=== PATIENT | male | born 1935 | race Caucasian/White ===

== ENCOUNTER → 2018-10-09 | Outpatient (CLI) | payer MEDICARE ==
[2018-10-09 11:15] VITALS: BMI 28.8
== END ==
LOC: DBWHC3 08:53
PROVIDERS: ATTEND Internal Medicine Hematology & Oncology
DX: E46 Unspecified protein-calorie malnutrition (principal); D64.9 Anemia, unspecified; C15.5 Malignant neoplasm of lower third of esophagus; D47.2 Monoclonal gammopathy; N18.3 Chronic kidney disease, stage 3 (moderate)
CPT/HCPCS: 97802

== ENCOUNTER → 2018-10-28 | Outpatient (CLI) | payer MEDICARE ==
--- NOTE | 2018-10-28 15:46 | XR ---
EXAMINATION TYPE: XR chest 2V DATE OF EXAM: 10/28/2018 COMPARISON: 05/28/2014 HISTORY: Cough TECHNIQUE: Frontal and lateral views of the chest are obtained. FINDINGS: There is a moderate left pleural effusion that is developed in the interim. There is a sma ll right pleural effusion that is also new. Associated bibasilar airspace disease may represent compr essive atelectasis or underlying pneumonia. Mild pulmonary vascular congestion is seen. Cardia medias tinal silhouette is obscured however the visualized portions appear enlarged. Right-sided Mediport is present terminating in the cavoatrial junction. Post CABG changes are seen of the chest. There is di ffuse osseous demineralization and bridging anterior osteophytes suggesting diffuse hepatocellular hy perostosis. No sizable pneumothorax. IMPRESSION: New moderate left and small right pleural effusions with associated bibasilar airspace d isease and mild pulmonary vascular congestion.
== END | disposition home or self-care (01) ==
LOC: RADXRMAIN 15:11
PROVIDERS: ATTEND Physician Assistant
DX: J90 Pleural effusion, not elsewhere classified (principal); R09.89 Other specified symptoms and signs involving the circulatory and respiratory systems
CPT/HCPCS: 71046

== ENCOUNTER 2018-11-05 11:00 | Day surgery (SDC) | payer MEDICARE ==
--- NOTE | 2018-11-05 11:29 | US ---
EXAMINATION TYPE: US chest DATE OF EXAM: 11/05/2018 COMPARISON: CXR CLINICAL HISTORY: J90 PE. Left pleural effusion TECHNIQUE: Targeted ultrasound of the posterior lower left hemithorax EXAM MEASUREMENTS: Left Pleural Effusion pocket size: 11.9 cm Left skin surface to fluid distance: 3.5 cm Left side marked for possible thoracentesis outside the dept. Pulmonologists are able to review the images in the patient?s EMR. IMPRESSIONS: Pleural effusion
[2018-11-05 11:39] VITALS: BP 116/55; PULSE 67; RESP 16
[2018-11-05 11:42] VITALS: TEMP 97.8
--- NOTE | 2018-11-05 12:56 | XR ---
EXAMINATION TYPE: XR chest 1V portable DATE OF EXAM: 11/05/2018 COMPARISON: 11/02/2018 HISTORY: Postthoracentesis TECHNIQUE: Single frontal view of the chest is obtained. FINDINGS: Bilateral consolidation and pleural effusion again noted. There is a Mediport catheter pos tsurgical changes with no pneumothorax. Postoperative changes seen and there is arthropathy of the sh oulders severe changes on the left. IMPRESSION: No pneumothorax. Persistent bilateral consolidation and pleural effusion. Underlying anne marie ous congestion in the differential diagnosis.
[2018-11-05 17:30] LABS: Appearance,BF Clear; Color,BF Yellow; Nucleated Cells, Body Fluid 70 /uL; RBC, Body Fluid 160 /uL
--- NOTE | 2018-11-05 18:16 | OP ---
OPERATIVE REPORT LEFT-SIDED THORACENTESIS: PREOPERATIVE DIAGNOSIS: Left pleural effusion. POSTOPERATIVE DIAGNOSIS: Left pleural effusion. ANESTHESIA USED: Lidocaine 1%, 2 mL. PROCEDURE DESCRIPTION: The patient was placed in a sitting-upright position. The area below the left scapula was prepared in a sterile fashion and drapes were applied. The fluid was earlier localized by ultrasound, and markings were placed at the site of the 8th intercostal space and tip of the scapula. Again, the area was prepared in a sterile fashion. Area was anesthetized with 2 mL of 1% lidocaine. Then a 26-gauge needle was inserted at the same site, advanced into the pleural space until the fluid was localized. Then a small tiny incision was made. Then a standard thoracentesis catheter and needle were used. The needle was inserted at the same site and advanced into the pleural space until the fluid was obtained. The catheter was advanced out of the needle into the pleural space, and the needle was pulled out of the pleural space. Fluid was drained; roughly 1300 mL of slightly yellow fluid, light in color, all drained into a large bottle, and the fluid was sent for different diagnostic studies. No evidence of any immediate complications. Fluid results are pending. Chest x-ray ordered postoperatively is pending. Again, no evidence of any immediate complications noted. MMODL / IJN: [id number] /
[2018-11-05 19:16] LABS: Mononuclear WBC,Body Fluid 95 %; Polynuclear WBC,Body Fluid 3 %
[2018-11-05 23:42] LABS: Total Protein, Body Fluid 2020 mg/dL
[2018-11-06] LABS: Amylase, Fluid Source Thoracentesis
== END 2018-11-11 15:46 ==
LOC: PROCWHC3 11:00
PROVIDERS: ATTEND Internal Medicine
DX: J90 Pleural effusion, not elsewhere classified (principal); Z85.01 Personal history of malignant neoplasm of esophagus
CPT/HCPCS: 32554; 71045; 76604; 82150; 82570; 82945; 83615; 84157; 87070; 87102; 87116; 87205; 87206; 88108; 88305; 88341; 88342; 89050

== ENCOUNTER 2018-12-29 18:13 | Inpatient (IN) | payer MEDICARE ==
[2018-12-29] MEDS ORDERED: ACETAMINOPHEN TAB 500 MG TAB PO STA (19:01)
[2018-12-29] MEDS: SODIUM CHLORIDE 0.9% 500 ML 500 ML IV SCH ×2 (19:11→19:12)
--- NOTE | 2018-12-29 19:13 | ED ---
General Adult HPI - General Chief complaint: Recheck/Abnormal Lab/Rx Stated complaint: FEVER, ELEVATED HEART RATE, LOW 02 Time Seen by Provider: 12/29/18 18:56 Source: patient, family, RN notes reviewed Mode of arrival: wheelchair Limitations: no limitations - History of Present Illness Initial comments: Patient is a pleasant 83-year-old male presenting to the emergency Department with fever. Onset of symptoms was today. Patient does feel somewhat short of breath. Patient feels fatigued. Patient does have mild occasional cough. No abdominal pain. No dysuria. Patient has not urinated much today. Family did notice high heart rate and low oxygen level on monitoring at home today. Patient also has history of bilateral leg wounds which family states appear slightly worse and they do believe there was somewhat of an odor there today. Patient does have history of esophageal cancer and is not under treatment for that at this point. Patient does frequently become anemic secondary to this - Related Data Home Medications Medication Instructions Recorded Confirmed Metoprolol Tartrate 25 mg PO BID 05/20/14 12/29/18 Paricalcitol 2 mcg PO MO 05/20/14 12/29/18 Furosemide [Lasix] 40 mg PO DAILY 07/31/18 12/29/18 Iron Polysaccharide Complex 150 mg PO DAILY 07/31/18 12/29/18 [Ferrex 150] Lactobacillus Acidophilus 1 tab PO DAILY 07/31/18 12/29/18 [Acidophilus] Pravastatin Sodium [Pravachol] 20 mg PO HS 07/31/18 12/29/18 guaiFENesin [Mucinex] 600 mg PO BID 07/31/18 12/29/18 Cholecalciferol [Vitamin D3] 400 unit PO BID 12/29/18 12/29/18 Omeprazole 40 mg PO DAILY 12/29/18 12/29/18 Spironolactone [Aldactone] 25 mg PO DAILY 12/29/18 12/29/18 Allergies Allergy/AdvReac Type Severity Reaction Status Date / Time No Known Allergies Allergy Verified 12/29/18 19:28 Review of Systems ROS Statement: Those systems with pertinent positive or pertinent negative responses have been documented in the HPI. ROS Other: All systems not noted in ROS Statement are negative. Constitutional: Reports: fever, chills Eyes: Denies: eye pain ENT: Denies: ear pain Respiratory: Reports: dyspnea Cardiovascular: Denies: chest pain Endocrine: Reports: fatigue Gastrointestinal: Denies: abdominal pain Genitourinary: Denies: dysuria Musculoskeletal: Denies: back pain Skin: Reports: as per HPI Neurological: Denies: headache Past Medical History Past Medical History: Atrial Fibrillation, Cancer, Hypertension, Renal Disease Additional Past Medical History / Comment(s): Hx of diabetes. Esophogeal cancer History of Any Multi-Drug Resistant Organisms: None Reported Past Surgical History: Appendectomy, Coronary Bypass/CABG, Orthopedic Surgery Additional Past Surgical History / Comment(s): bilateral hip replacement and Left Knee replacement Past Anesthesia/Blood Transfusion Reactions: No Reported Reaction Past Psychological History: No Psychological Hx Reported Smoking Status: Former smoker Past Alcohol Use History: Rare Past Drug Use History: None Reported - Past Family History Mother Additional Family Medical History / Comment(s): Leukemia General Exam Limitations: no limitations General appearance: alert, in no apparent distress Head exam: Present: atraumatic Eye exam: Present: normal appearance, PERRL ENT exam: Present: normal oropharynx Neck exam: Present: normal inspection. Absent: meningismus Respiratory exam: Present: normal lung sounds bilaterally Cardiovascular Exam: Present: tachycardia GI/Abdominal exam: Present: soft. Absent: tenderness Extremities exam: Absent: tenderness, calf tenderness Neurological exam: Present: alert Psychiatric exam: Present: normal affect, normal mood Skin exam: Present: other (Bilateral lower extremity anterior chong lesions with trace erythema. No odor. No discharge. Lesions are approximately 1-2 cm with surrounding chronic discoloration.) Course Vital Signs 12/29/18 12/29/18 12/29/18 18:38 18:52 19:00 Temperature 101.3 F H Pulse Rate 114 H 113 H Respiratory 20 20 Rate Blood Pressure 91/51 101/51 O2 Sat by Pulse 94 L 91 L 95 Oximetry 12/29/18 12/29/18 12/29/18 19:01 19:10 19:47 Temperature 99.8 F H Pulse Rate 114 H 112 H Respiratory 20 32 H 18 Rate Blood Pressure 92/46 109/55 O2 Sat by Pulse 95 96 Oximetry EKG Findings - EKG Comments: EKG Findings:: Irregular narrow complex rhythm with a rate of 116. QRS 94. QT 334. QTC or 64. Normal axis. Normal QRS. No acute ST change. Medical Decision Making - Medical Decision Making Patient reevaluated and resting comfortably in bed. Patient has significantly improved from presentation. No respiratory distress. Patient and family are updated on results and plan. Dr. Wright has been paged for admission. There is suspicion for pneumonia. Clinically patient has presentation of pneumonia with questionable chest x-ray. Patient will be started with antibiotics. Patient does meet sepsis criteria diagnosed at 2039. Blood culture and lactic acid have been ordered. - Lab Data Result diagrams: 12/29/18 18:55 12/29/18 18:55 Lab Results 12/29/18 12/29/18 12/29/18 Range/Units 18:55 18:55 18:55 WBC 6.3 (3.8-10.6) k/uL RBC 2.64 L (4.30-5.90) m/uL Hgb 8.2 L (13.0-17.5) gm/dL Hct 25.8 L (39.0-53.0) % MCV 97.5 (80.0-100.0) fL MCH 31.2 (25.0-35.0) pg MCHC 32.0 (31.0-37.0) g/dL RDW 17.1 H (11.5-15.5) % Plt Count 161 (150-450) k/uL Neutrophils % 90 % Lymphocytes % 4 % Monocytes % 4 % Eosinophils % 1 % Basophils % 0 % Neutrophils # 5.7 (1.3-7.7) k/uL Lymphocytes # 0.3 L (1.0-4.8) k/uL Monocytes # 0.3 (0-1.0) k/uL Eosinophils # 0.0 (0-0.7) k/uL Basophils # 0.0 (0-0.2) k/uL Hypochromasia Slight Poikilocytosis Slight Anisocytosis Slight Macrocytosis Slight PT (9.0-12.0) sec INR (<1.2) APTT (22.0-30.0) sec Sodium 137 (137-145) mmol/L Potassium 4.7 (3.5-5.1) mmol/L Chloride 105 (98-107) mmol/L Carbon Dioxide 22 (22-30) mmol/L Anion Gap 10 mmol/L BUN 64 H (9-20) mg/dL Creatinine 1.65 H (0.66-1.25) mg/dL Est GFR (CKD-EPI)AfAm 43 (>60 ml/min/1.73 sqM) Est GFR (CKD-EPI)NonAf 37 (>60 ml/min/1.73 sqM) Glucose 169 H (74-99) mg/dL Plasma Lactic Acid Rory 1.4 (0.7-2.0) mmol/L Calcium 10.1 (8.4-10.2) mg/dL Total Bilirubin 0.6 (0.2-1.3) mg/dL AST 23 (17-59) U/L ALT 13 L (21-72) U/L Alkaline Phosphatase 135 H (38-126) U/L Total Protein 6.6 (6.3-8.2) g/dL Albumin 3.3 L (3.5-5.0) g/dL Urine Color Urine Appearance (Clear) Urine pH (5.0-8.0) Ur Specific Napoleon (1.001-1.035) Urine Protein (Negative) Urine Glucose (UA) (Negative) Urine Ketones (Negative) Urine Blood (Negative) Urine Nitrite (Negative) Urine Bilirubin (Negative) Urine Urobilinogen (<2.0) mg/dL Ur Leukocyte Esterase (Negative) Urine RBC (0-5) /hpf Urine WBC (0-5) /hpf Hyaline Casts (0-2) /lpf Urine Mucus (None) /hpf 12/29/18 12/29/18 Range/Units 18:55 19:40 WBC (3.8-10.6) k/uL RBC (4.30-5.90) m/uL Hgb (13.0-17.5) gm/dL Hct (39.0-53.0) % MCV (80.0-100.0) fL MCH (25.0-35.0) pg MCHC (31.0-37.0) g/dL RDW (11.5-15.5) % Plt Count (150-450) k/uL Neutrophils % % Lymphocytes % % Monocytes % % Eosinophils % % Basophils % % Neutrophils # (1.3-7.7) k/uL Lymphocytes # (1.0-4.8) k/uL Monocytes # (0-1.0) k/uL Eosinophils # (0-0.7) k/uL Basophils # (0-0.2) k/uL Hypochromasia Poikilocytosis Anisocytosis Macrocytosis PT 11.0 (9.0-12.0) sec INR 1.0 (<1.2) APTT 27.1 (22.0-30.0) sec Sodium (137-145) mmol/L Potassium (3.5-5.1) mmol/L Chloride (98-107) mmol/L Carbon Dioxide (22-30) mmol/L Anion Gap mmol/L BUN (9-20) mg/dL Creatinine (0.66-1.25) mg/dL Est GFR (CKD-EPI)AfAm (>60 ml/min/1.73 sqM) Est GFR (CKD-EPI)NonAf (>60 ml/min/1.73 sqM) Glucose (74-99) mg/dL Plasma Lactic Acid Rory (0.7-2.0) mmol/L Calcium (8.4-10.2) mg/dL Total Bilirubin (0.2-1.3) mg/dL AST (17-59) U/L ALT (21-72) U/L Alkaline Phosphatase (38-126) U/L Total Protein (6.3-8.2) g/dL Albumin (3.5-5.0) g/dL Urine Color Yellow Urine Appearance Clear (Clear) Urine pH 5.0 (5.0-8.0) Ur Specific Napoleon 1.011 (1.001-1.035) Urine Protein Negative (Negative) Urine Glucose (UA) Negative (Negative) Urine Ketones Negative (Negative) Urine Blood Trace H (Negative) Urine Nitrite Negative (Negative) Urine Bilirubin Negative (Negative) Urine Urobilinogen <2.0 (<2.0) mg/dL Ur Leukocyte Esterase Negative (Negative) Urine RBC 2 (0-5) /hpf Urine WBC 1 (0-5) /hpf Hyaline Casts 1 (0-2) /lpf Urine Mucus Rare H (None) /hpf - Radiology Data Radiology results: image reviewed (Patient has bilateral parenchymal abnormalities, greater on the left. There is some concern for atelectasis or pneumonia however is unchanged from previous.) Critical Care Time Critical Care Time: Yes Total Critical Care Time: 32 Disposition Clinical Impression: Pneumonia, Sepsis Disposition: ADMITTED IP TO THIS [facility] Condition: Serious Is patient prescribed a controlled substance at d/c from ED?: No Referrals: Alex Wright MD [Primary Care Provider] - 1-2 days Time of Disposition: 20:45
[2018-12-29 19:46] LABS: Anisocytosis Slight; Basophils % (A) 0 %; Eosinophils % (A) 1 %; HCT 25.8 % (39.0-53.0); HGB 8.2 gm/dL (13.0-17.5); Hypochromasia Slight; Lymphocytes # (A) 0.3 k/uL (1.0-4.8); Lymphocytes % (A) 4 %; MCH 31.2 pg (25.0-35.0); MCV 97.5 fL (80.0-100.0); Macrocytosis Slight; Mean Platelet Volume 7.2; Monocytes # (A) 0.3 k/uL (0-1.0); Monocytes % (A) 4 %; Neutrophils # (A) 5.7 k/uL (1.3-7.7); Neutrophils % (A) 90 %; Platelet Count 161 k/uL (150-450); Poikilocytosis Slight; RBC 2.64 m/uL (4.30-5.90); RDW 17.1 % (11.5-15.5); WBC 6.3 k/uL (3.8-10.6)
--- NOTE | 2018-12-29 19:51 | XR ---
EXAMINATION: XR chest 2V DATE AND TIME: 12/29/2018 7:24 PM CLINICAL INDICATION: PHH; Fever TECHNIQUE: Departmental protocol COMPARISON: 11/05/2018 FINDINGS: Right IJ portacatheter tip superimposed over the SVC. Sutures and mediastinal clips noted. Moderately enlarged cardiac silhouette redemonstrated. Previously seen prominent bilateral pleural effusions, much greater on the left, are redemonstrated. Also redemonstrated is airlessness throughout the left lower lobe and most of the lingula, as well as most of the right lower lobe. Findings are consistent with prominent volume of atelectasis and/or pn eumonia. No abnormal gas collections. IMPRESSION: Stable marked bilateral pleural parenchymal abnormalities, greater on the left. No new pr ocess.
[2018-12-29 20:00] LABS: Albumin 3.3 g/dL (3.5-5.0); Calcium 10.1 mg/dL (8.4-10.2); Potassium 4.7 mmol/L (3.5-5.1); Total Bilirubin 0.6 mg/dL (0.2-1.3); Total Protein 6.6 g/dL (6.3-8.2)
[2018-12-29 20:02] LABS: Partial Thromboplastin Time 27.1 sec (22.0-30.0)
[2018-12-29 20:26] LABS: Appearance,Urine Clear (Clear); Bilirubin,Urine Negative (Negative); Blood,Urine Trace (Negative); Color,Urine Yellow; Glucose,Urine (UA) Negative (Negative); Hyaline Casts,Urine 1 /lpf (0-2); Ketones,Urine Negative (Negative); Leukocyte Esterase,Urine Negative (Negative); Mucus,Urine Rare /hpf; Nitrite,Urine Negative (Negative); Protein,Urine Negative (Negative); RBC,Urine 2 /hpf (0-5); Specific Gravity,Urine 1.011 (1.001-1.035); Urobilinogen,Urine <2.0 mg/dL (<2.0); WBC,Urine 1 /hpf (0-5)
[2018-12-29] MEDS ORDERED: SODIUM CHLORIDE 0.9% 1,000 ML IV STA (20:41)
[2018-12-29] MEDS ORDERED: SODIUM CHLORIDE 0.9% 250 ML IV STA (20:41)
[2018-12-29] MEDS ORDERED: PNEUMONIA PROTOCOL UTILIZED 1 EACH MISC PO PRN (20:46)
[2018-12-29] MEDS ORDERED: LEVOFLOXACIN 750MG-D5W PMX 750 MG in DEXTROSE/WATER 1 150ML.BAG IVPB STA (20:46)
[2018-12-29] MEDS ORDERED: IPRATROPIUM-ALBUTEROL 3 ML NEB INHALATION PRN (20:46)
[2018-12-29] MEDS ORDERED: PIPERACILLIN-TAZOBACTAM 3.375 GM in SODIUM CHLORIDE 0.9% 100 ML IVPB STA (20:46)
[2018-12-29] MEDS: SODIUM CHLORIDE 0.9% 1,000 ML IV SCH (22:32)
[2018-12-30 07:01] LABS: Glucose,Whole Blood 103 mg/dL (75-99)
[2018-12-30] MEDS: SODIUM CHLORIDE 0.9% 1,000 ML IV SCH ×2 (07:53→17:05)
--- NOTE | 2018-12-30 08:02 | XR ---
EXAMINATION TYPE: XR chest 2V DATE OF EXAM: 12/30/2018 COMPARISON: 12/29/2018 HISTORY: Follow-up for pneumonia TECHNIQUE: Frontal and lateral views of the chest are obtained. FINDINGS: There is improved aeration of the lung base however there is a residual masslike density a t the right lung base measuring up to 4.3 cm. Interstitial edema is mild throughout and a moderate le ft pleural effusion remains with left basilar airspace disease. Right-sided Mediport is noted. Diffus e osseous demineralization is present. Post CABG changes the chest are seen with obscuration of the l eft cardiac border due to the pleural effusion. Advanced arthropathy of the left shoulder. IMPRESSION: 1. Improved aeration of the right lung base with residual 4.3 cm masslike density at the right lung b ase. If this patient has no known pulmonary mass CT would be recommended for further evaluation. 2. Persistent moderate left pleural effusion, left basilar airspace disease that likely represents at electasis, and mild pulmonary vascular all unchanged from the prior.
[2018-12-30] MEDS: IPRATROPIUM-ALBUTEROL 3 ML NEB INHALATION SCH ×4 (08:14→19:51)
[2018-12-30] MEDS: PIPERACILLIN-TAZOBACTAM 3.375 GM in SODIUM CHLORIDE 0.9% 100 ML IVPB SCH ×2 (08:40→17:04)
[2018-12-30] MEDS: METOPROLOL TARTRATE 25 MG TAB PO SCH ×2 (08:40→20:27)
[2018-12-30] MEDS: FUROSEMIDE 40 MG TAB PO SCH ×2 (08:40→17:04)
[2018-12-30] MEDS: PANTOPRAZOLE 40 MG TABLET PO SCH (08:40)
[2018-12-30] MEDS: LACTOBACILLUS ACIDOPH & BULGAR 1 EACH PACKET PO SCH (08:40)
[2018-12-30 11:19] LABS: Glucose,Whole Blood 160 mg/dL (75-99)
--- NOTE | 2018-12-30 11:31 | P.HPIM ---
History of Present Illness 83-year-old male presented the emergency room with complaints of fever and occasional cough tachycardic and hypoxia. 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 Patient does have a history of intermittent atrial fibrillation renal disease GFR 37, coronary disease with history of CABG and esophageal cancer for whom he sees Dr. Dennison Review of Systems Constitutional: Reports fatigue, Reports fever, Reports weakness Respiratory: Reports cough Integumentary: Reports wounds Past Medical History Past Medical History: Atrial Fibrillation, Cancer, Hypertension, Renal Disease Additional Past Medical History / Comment(s): Hx of diabetes. Esophogeal cancer History of Any Multi-Drug Resistant Organisms: None Reported Past Surgical History: Appendectomy, Coronary Bypass/CABG, Orthopedic Surgery Additional Past Surgical History / Comment(s): bilateral hip replacement and Left Knee replacement Past Anesthesia/Blood Transfusion Reactions: No Reported Reaction Past Psychological History: No Psychological Hx Reported Smoking Status: Former smoker Past Alcohol Use History: Rare Past Drug Use History: None Reported - Past Family History Mother Additional Family Medical History / Comment(s): Leukemia Medications and Allergies Home Medications Medication Instructions Recorded Confirmed Type Metoprolol Tartrate 25 mg PO BID 05/20/14 12/29/18 History Paricalcitol 2 mcg PO MO 05/20/14 12/29/18 History Furosemide [Lasix] 40 mg PO DAILY 07/31/18 12/29/18 History Iron Polysaccharide Complex 150 mg PO DAILY 07/31/18 12/29/18 History [Ferrex 150] Lactobacillus Acidophilus 1 tab PO DAILY 07/31/18 12/29/18 History [Acidophilus] Pravastatin Sodium [Pravachol] 20 mg PO HS 07/31/18 12/29/18 History guaiFENesin [Mucinex] 600 mg PO BID 07/31/18 12/29/18 History Cholecalciferol [Vitamin D3] 400 unit PO BID 12/29/18 12/29/18 History Omeprazole 40 mg PO DAILY 12/29/18 12/29/18 History Spironolactone [Aldactone] 25 mg PO DAILY 12/29/18 12/29/18 History Allergies Allergy/AdvReac Type Severity Reaction Status Date / Time No Known Allergies Allergy Verified 12/29/18 19:28 Physical Exam Vitals: Vital Signs Temp Pulse Pulse Resp BP BP Pulse Ox 12/30/18 08:28 112 H 12/30/18 08:15 108 H 12/30/18 07:53 18 12/30/18 04:18 97.5 F L 95 18 104/62 100 12/30/18 00:00 18 12/29/18 21:20 105 H 18 94/44 97 12/29/18 21:16 99.1 F 116 H 20 88/47 96 12/29/18 19:47 99.8 F H 112 H 18 109/55 96 12/29/18 19:10 114 H 32 H 92/46 95 12/29/18 19:01 20 12/29/18 19:00 113 H 20 101/51 95 12/29/18 18:52 91 L 12/29/18 18:38 101.3 F H 114 H 20 91/51 94 L Intake and Output 12/29/18 12/30/18 12/30/18 22:59 06:59 14:59 Intake Total 2479 1040 Output Total 280 560 100 Balance 2199 480 -100 Intake: Intake, IV Titration 1998 800 Amount Levofloxacin 750Mg-D5w 150 Pmx 750 mg In Dextrose/ Water 1 150ml.bag @ 100 mls/hr IVPB Q48H [facility] Rx#: [id number] Piperacillin-Tazobactam 3 100 .375 gm In Sodium Chloride 0.9% 100 ml @ 25 mls/hr IVPB Q8HR [facility] Rx# :[id number] Sodium Chloride 0.9% 1, 800 000 ml @ 100 mls/hr IV . Q10H [facility] Rx#:[id number] Sodium Chloride 0.9% 1, 999 000 ml @ 999 mls/hr IV . Q1H1M [facility] Rx#:[id number] Sodium Chloride 0.9% 250 250 ml @ 999 mls/hr IV .Q16M [facility] Rx#:[id number] Sodium Chloride 0.9% 500 500 ml 500 ml @ 1000 mls/hr IV Q35M [facility] Rx#:[id number] Oral 480 240 Output: Urine 280 560 100 Other: Voiding Method Toilet Urinal Urinal Weight 73.936 kg - Constitutional General appearance: mild distress - EENT Eyes: PERRLA Ears: bilateral: normal - Neck Neck: normal ROM - Respiratory Respiratory: bilateral: diminished - Cardiovascular Rhythm: regular Abnormal Heart Sounds: systolic murmur - Gastrointestinal General gastrointestinal: normal bowel sounds, soft - Integumentary Wounds to anterior lower extremity bilateral Integumentary: cellulitis - Neurologic Neurologic: CNII-XII intact - Musculoskeletal Musculoskeletal: generalized weakness - Psychiatric Psychiatric: A&O x's 3, appropriate affect, intact judgment & insight Results CBC & Chem 7: 12/29/18 18:55 12/29/18 18:55 Labs: Abnormal Lab Results - Last 24 Hours (Table) 12/29/18 12/29/18 12/29/18 Range/Units 18:55 18:55 19:40 RBC 2.64 L (4.30-5.90) m/uL Hgb 8.2 L (13.0-17.5) gm/dL Hct 25.8 L (39.0-53.0) % RDW 17.1 H (11.5-15.5) % Lymphocytes # 0.3 L (1.0-4.8) k/uL BUN 64 H (9-20) mg/dL Creatinine 1.65 H (0.66-1.25) mg/dL Glucose 169 H (74-99) mg/dL POC Glucose (mg/dL) (75-99) mg/dL ALT 13 L (21-72) U/L Alkaline Phosphatase 135 H (38-126) U/L Albumin 3.3 L (3.5-5.0) g/dL Urine Blood Trace H (Negative) Urine Mucus Rare H (None) /hpf 12/30/18 12/30/18 Range/Units 06:57 11:18 RBC (4.30-5.90) m/uL Hgb (13.0-17.5) gm/dL Hct (39.0-53.0) % RDW (11.5-15.5) % Lymphocytes # (1.0-4.8) k/uL BUN (9-20) mg/dL Creatinine (0.66-1.25) mg/dL Glucose (74-99) mg/dL POC Glucose (mg/dL) 103 H 160 H (75-99) mg/dL ALT (21-72) U/L Alkaline Phosphatase (38-126) U/L Albumin (3.5-5.0) g/dL Urine Blood (Negative) Urine Mucus (None) /hpf Microbiology - Last 24 Hours (Table) 08/06/19 19:40 Urine Culture - Preliminary Urine,Voided Chest x-ray: report reviewed Thrombosis Risk Factor Assmnt - Choose All That Apply Other Risk Factors: Yes Each Risk Factor Represents 2 Points: Malignancy Each Risk Factor Represents 3 Points: Age 75 years or older Other congenital or acquired thrombophilia - If yes, enter type in comment: No Thrombosis Risk Factor Assessment Total Risk Factor Score: 5 Thrombosis Risk Factor Assessment Level: High Risk Assessment and Plan Plan: Assessment Pneumonia with sepsis Cellulitis lower extremities Anemia chronic disease Intermittent atrial fibrillation Esophageal cancer Renal disease GFR 37 Coronary disease with history of CABG Plan Consultation with oncology and pulmonology Patient on Levaquin and Zosyn Patient is no code
--- NOTE | 2018-12-30 11:56 | CONS ---
CONSULTATION This is an 83-year-old male with a known history of atrial fibrillation, esophageal cancer, hypertension, diabetes, previous bypass grafting, CAD, and multiple other medical problems, who presents to the emergency department because of a high temperature and fever. The patient states that he was feeling febrile and that is why he came into the emergency room to be evaluated. He states when he checked his temperature at home, it was more than 101 degrees. In addition to fever, the patient was feeling very weak and fatigued. In addition, the patient complains of mild shortness of breath and a minimal cough which is mostly nonproductive. He denied any chest pain or chest discomfort. No abdominal pain. No nausea, vomiting or diarrhea. No genitourinary complaints. The patient was admitted with a diagnosis of fever and possible pneumonia. Chest x-ray shows evidence of a possible mass in the right lower lobe. In addition, there is infiltrate, atelectasis or effusion at the left lung base. The patient did have a previous thoracentesis by my partner, Dr. Girard back in October of this year. Cytology was negative. He apparently is not undergoing cancer treatment at this time. The patient is getting a breathing treatment when I see him today. He denies any respiratory issues including shortness of breath. Again, he mentioned to me that the only reason he came to the hospital was because of fever. HOME MEDICATIONS: Include metoprolol, calcitriol, Lasix, Ferrex, lactobacillus acidophilus, pravastatin, Mucinex, vitamin D3, omeprazole, and Aldactone. ALLERGIES: Denied. MEDICAL HISTORY: Includes atrial fibrillation, esophageal cancer, hypertension, chronic kidney disease, diabetes, CAD, previous bypass grafting, among other things. SURGICAL HISTORY: Includes appendectomy, bypass grafting, bilateral hip replacement and left knee replacement. SOCIAL HISTORY: Positive for many years of heavy tobacco use. Does not smoke currently. Alcohol use rarely. No illicit drug use is noted. FAMILY HISTORY: Positive for mother with leukemia. All the other family members are okay. REVIEW OF SYSTEMS: CONSTITUTIONAL: Fever and weakness. NEUROLOGIC: Negative. HEENT: Negative. CARDIOVASCULAR: Negative. PULMONARY: Mild shortness of breath and mild nonproductive cough. GI: Negative. : Negative. RHEUMATOLOGIC: Negative. IMMUNOLOGIC: Negative. ENDOCRINOLOGIC: Negative. DERMATOLOGIC: Negative. Vital signs are reviewed. Temperature is 97.5, heart rate is 108, respiratory rate 18, blood pressure 104/62 mean 76, 2 L saturation is 100%. He appears in no acute distress. He is wearing oxygen. He was getting a breathing treatment when I saw him. There was no overt signs or symptoms of respiratory compromise. The patient did not have any audible wheezing, use of accessory muscles or conversational dyspnea. HEENT: Examination is grossly unremarkable. Nasal O2 noted. Mucous membranes are moist. NECK: Supple. Full range of motion. No adenopathy. Neck veins are flat. CARDIOVASCULAR: Examination reveals mild tachycardia. Heart rate about 100. S1, S2 normal. No S3, S4, or murmur. LUNGS: Reveal diminished breath sounds at the left base. There are some diffuse bilateral rhonchi. No wheezes. Mild crackles are noted. ABDOMEN: Soft. Bowel sounds are heard. EXTREMITIES: Intact. No cyanosis, clubbing, or edema. SKIN: Without rash. NEUROLOGIC: Examination is brief but nonfocal. White count 6.3, hemoglobin 8.2, hematocrit 25.8, platelet count 161,000. PT, INR, PTT all normal. Sodium, potassium, chloride, CO2 all normal. Anion gap is normal. BUN and creatinine were 64 and 1 65, suggesting prerenal azotemia. Albumin 3.3. Urine is essentially negative. Chest x-ray shows infiltrate, atelectasis or effusion at the left lung base. In addition, there is a mass at the right lung base. The upper lung flaherty seemed relatively clear. Microbiologic studies are thus far negative. Current medications are reviewed. He is on Tylenol, Lasix, DuoNeb, iron supplementation, lactobacillus, Levaquin, metoprolol, piperacillin/tazobactam, pravastatin and a 0.9 IV at 100 mL an hour. ASSESSMENT: 1. Rule out pneumonia, left lower lobe. 2. History of esophageal cancer. 3. History of hypertension. 4. History of hyperlipidemia. 5. History of gastroesophageal reflux disease. 6. History of chronic kidney disease. 7. Previous bypass grafting. 8. History of appendectomy. 9. History of atrial fibrillation. 10.History of previous heavy tobacco use. PLAN: The patient's medications are reviewed. Additional recommendations and suggestions are forthcoming. He likely has underlying COPD from previous heavy tobacco use. We will make sure he is on appropriate regimen. He also needs to be on antibiotics and oxygen therapy. Prognosis is guarded. Additional recommendations and suggestions are forthcoming. The right lower lobe lung mass to be evaluated and dealt with as an outpatient. MMODL / IJN: [id number] /
[2018-12-30] MEDS: IRON POLYSACCHARIDES COMPLEX 150 MG CAP PO SCH (12:17)
--- NOTE | 2018-12-30 15:15 | P.CONS ---
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 He had a follow up PET scan on 04/24/2018 which revealed uptake at distal esophagus,stable midly prominent mediastinal nodes and small bilateral pleural effusion. He also had a repeat CT scan of chest/abdomen/pelvis on 06/18/2018,stable finding compared to prior PET scan. He had a repeat EGD on 06/10/2018 biopsy revealed high grade dysplasia and intestinal metaplasia,malignancy could not be excluded. In regard to his anemia,he has been requiring intermittent blood transfusion,it has become almost every 3 weeks since May/2018 despite procrit supplement. He moved to [place] to stay with his daughter on 07/21/2018. In regard to his esophageal cancer,he may have residual local disease,it was felt that he is not a candidate for surgery. In regard to his anemia,he is still requiring blood transfusion every 2-4 weeks. Most recent transfusion was around 12/01/18, for hemoglobin of 6.7. Since then hemoglobin has been greater than 8 He had a left-sided pleural effusion drained in 11/11, with cytology negative He was supposed to have a repeat endoscopy within the last week or so, but states that he he had to cancel, as he was having increased cough whenever he would lay flat The patient came into the hospital, with complains of progressive shortness of breath over the past few days, as well as subjective fever. He also complained of a nonproductive cough, worsened by laying flat. In the ER he had a temperature of 101+. Chest x-ray revealed possibility of left-sided pneumonia. He was therefore admitted for further management, and consult placed He denied any obvious bleeding. He reports difficulty in swallowing only with pills, intermittently. He denied any overt choking episodes. His last EMRE injection was on 12/21/18 Review of Systems Constitutional: Reports fatigue, Reports weakness, Reports weight loss Eyes: denies blurred vision, denies pain Ears: deny: decreased hearing, ear discharge, earache, tinnitus Ears, nose, mouth and throat: Reports dysphagia (just with pills), Denies hea dache, Denies sore throat Cardiovascular: Reports dyspnea on exertion Respiratory: Reports cough, Reports dyspnea Gastrointestinal: Denies abdominal pain, Denies diarrhea, Denies nausea, Denies vomiting Genitourinary: Reports as per HPI Musculoskeletal: Reports muscle weakness Integumentary: Denies pruritus, Denies rash Neurological: Reports weakness Psychiatric: Denies anxiety, Denies depression Endocrine: Reports fatigue, Reports weight change Hematologic/Lymphatic: Reports as per HPI Past Medical History Past Medical History: Atrial Fibrillation, Cancer, Hypertension, Renal Disease Additional Past Medical History / Comment(s): Hx of diabetes. Esophogeal cancer History of Any Multi-Drug Resistant Organisms: None Reported Past Surgical History: Appendectomy, Coronary Bypass/CABG, Orthopedic Surgery Additional Past Surgical History / Comment(s): bilateral hip replacement and Left Knee replacement Past Anesthesia/Blood Transfusion Reactions: No Reported Reaction Past Psychological History: No Psychological Hx Reported Smoking Status: Former smoker Past Alcohol Use History: Rare Past Drug Use History: None Reported - Past Family History Mother Additional Family Medical History / Comment(s): Leukemia Medications and Allergies Home Medications Medication Instructions Recorded Confirmed Type Metoprolol Tartrate 25 mg PO BID 05/20/14 12/29/18 History Paricalcitol 2 mcg PO MO 05/20/14 12/29/18 History Furosemide [Lasix] 40 mg PO DAILY 07/31/18 12/29/18 History Iron Polysaccharide Complex 150 mg PO DAILY 07/31/18 12/29/18 History [Ferrex 150] Lactobacillus Acidophilus 1 tab PO DAILY 07/31/18 12/29/18 History [Acidophilus] Pravastatin Sodium [Pravachol] 20 mg PO HS 07/31/18 12/29/18 History guaiFENesin [Mucinex] 600 mg PO BID 07/31/18 12/29/18 History Cholecalciferol [Vitamin D3] 400 unit PO BID 12/29/18 12/29/18 History Omeprazole 40 mg PO DAILY 12/29/18 12/29/18 History Spironolactone [Aldactone] 25 mg PO DAILY 12/29/18 12/29/18 History Allergies Allergy/AdvReac Type Severity Reaction Status Date / Time No Known Allergies Allergy Verified 12/29/18 19:28 Physical Exam Vitals: Vital Signs Temp Pulse Pulse Resp BP BP Pulse Ox 12/30/18 11:59 97.9 F 82 17 106/64 100 12/30/18 08:28 112 H 12/30/18 08:15 108 H 12/30/18 07:53 18 12/30/18 04:18 97.5 F L 95 18 104/62 100 12/30/18 00:00 18 12/29/18 21:20 105 H 18 94/44 97 12/29/18 21:16 99.1 F 116 H 20 88/47 96 12/29/18 19:47 99.8 F H 112 H 18 109/55 96 12/29/18 19:10 114 H 32 H 92/46 95 12/29/18 19:01 20 12/29/18 19:00 113 H 20 101/51 95 12/29/18 18:52 91 L 12/29/18 18:38 101.3 F H 114 H 20 91/51 94 L Intake and Output 12/29/18 12/30/18 12/30/18 22:59 06:59 14:59 Intake Total 2479 1040 Output Total 280 560 300 Balance 2199 480 -300 Intake: Intake, IV Titration 1998 Amount Levofloxacin 750Mg-D5w 150 Pmx 750 mg In Dextrose/ Water 1 150ml.bag @ 100 mls/hr IVPB Q48H [facility] Rx#: [id number] Piperacillin-Tazobactam 3 100 .375 gm In Sodium Chloride 0.9% 100 ml @ 25 mls/hr IVPB Q8HR [facility] Rx# :[id number] Sodium Chloride 0.9% 1, 800 000 ml @ 100 mls/hr IV . Q10H [facility] Rx#:[id number] Sodium Chloride 0.9% 1, 999 000 ml @ 999 mls/hr IV . Q1H1M [facility] Rx#:[id number] Sodium Chloride 0.9% 250 250 ml @ 999 mls/hr IV .Q16M [facility] Rx#:[id number] Sodium Chloride 0.9% 500 500 ml 500 ml @ 1000 mls/hr IV Q35M [facility] Rx#:[id number] Oral 480 240 Output: Urine 280 560 300 Other: Voiding Method Toilet Urinal Urinal Weight 73.936 kg - Constitutional General appearance: no acute distress - EENT Eyes: EOMI, PERRLA ENT: hearing grossly normal, normal oropharynx - Neck Neck: no lymphadenopathy Thyroid: bilateral: normal size - Respiratory Respiratory: left: diminished - Cardiovascular Rhythm: regular Heart sounds: normal: S1, S2 - Gastrointestinal General gastrointestinal: normal bowel sounds, soft - Integumentary Integumentary: normal - Neurologic Neurologic: CNII-XII intact - Musculoskeletal Musculoskeletal: generalized weakness, strength equal bilaterally - Psychiatric Psychiatric: A&O x's 3, appropriate affect Results CBC & Chem 7: 12/29/18 18:55 12/29/18 18:55 Labs: Abnormal Lab Results - Last 24 Hours (Table) 12/29/18 12/29/18 12/29/18 Range/Units 18:55 18:55 19:40 RBC 2.64 L (4.30-5.90) m/uL Hgb 8.2 L (13.0-17.5) gm/dL Hct 25.8 L (39.0-53.0) % RDW 17.1 H (11.5-15.5) % Lymphocytes # 0.3 L (1.0-4.8) k/uL BUN 64 H (9-20) mg/dL Creatinine 1.65 H (0.66-1.25) mg/dL Glucose 169 H (74-99) mg/dL POC Glucose (mg/dL) (75-99) mg/dL ALT 13 L (21-72) U/L Alkaline Phosphatase 135 H (38-126) U/L Albumin 3.3 L (3.5-5.0) g/dL Urine Blood Trace H (Negative) Urine Mucus Rare H (None) /hpf 12/30/18 12/30/18 Range/Units 06:57 11:18 RBC (4.30-5.90) m/uL Hgb (13.0-17.5) gm/dL Hct (39.0-53.0) % RDW (11.5-15.5) % Lymphocytes # (1.0-4.8) k/uL BUN (9-20) mg/dL Creatinine (0.66-1.25) mg/dL Glucose (74-99) mg/dL POC Glucose (mg/dL) 103 H 160 H (75-99) mg/dL ALT (21-72) U/L Alkaline Phosphatase (38-126) U/L Albumin (3.5-5.0) g/dL Urine Blood (Negative) Urine Mucus (None) /hpf Microbiology - Last 24 Hours (Table) 12/29/18 19:40 Urine Culture - Preliminary Urine,Voided Comments: Pathology report reviewed Chest x-ray: report reviewed Assessment and Plan (1) Pneumonia Narrative/Plan: The patient is presenting with increased shortness of breath as the main complaint. Since his drainage of pleural effusion in 11/11, serial chest x-rays have shown bibasilar airspace disease. Patient has improve slowly. Current x- rays show residual consolidation in the right lung base, as well as small effusion in the left lung. On examination in the left lung bases decrease. With the above picture, and his symptoms, a new process in the lung bases is certainly a possibility. There may also be an element of COPD exacerbation. Defer to the admitting service and other consultants for management Current Visit: Yes Status: Acute Code(s): J18.9 - PNEUMONIA, UNSPECIFIED ORGANISM SNOMED Code(s): 046945657 (2) Anemia Narrative/Plan: The patient is chronic anemia, along with mild pancytopenia. Diagnostic and therapeutic circumstances as described. 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 The patient is currently on treatment with EMRE, and supportive transfusions. He is bases EMRE does this week. He is following patient for a few days, we can potentially get the dose here. Continue to monitor hemoglobin and transfuse for less than 7. No evidence of any active bleeding Current Visit: Yes Status: Acute Code(s): D64.9 - ANEMIA, UNSPECIFIED SNOMED Code(s): 364606085 (3) Esophageal cancer Narrative/Plan: Diagnostic and therapeutic circumstances as described. The patient is not felt to be a candidate for esophageal resection. Last EGD and biopsy did not show any invasive malignancy. However local recurrence cannot be ruled out. The patient was supposed to have a repeat EGD last month but was unable to do so. At this time he has no new symptoms. His EGD will need to be scheduled once he is more stable. Therefore there is no definite evidence of metastatic disease. Cytology of the pleural effusion was negative, and so far there does not appear to have been significant recurrence. He does have bibasilar airspace disease, with the consolidation on the right side mentioned as masslike. However this appears to be actually improving compared to 11/11. Additional imaging studies will be done inpatient, only if clinically indicated. Otherwise he will resume follow-up as an outpatient. Current Visit: Yes Status: Acute Code(s): C15.9 - MALIGNANT NEOPLASM OF ESOPHAGUS, UNSPECIFIED SNOMED Code(s): 386555533 Plan: Defer to the admitting service and other consultants for management of his other medical problems
[2018-12-30 17:14] LABS: Glucose,Whole Blood 139 mg/dL (75-99)
[2018-12-30] MEDS: SYMBICORT 160-4.5 MCG INHALER INHALATION SCH (19:51)
[2018-12-30 20:27] LABS: Glucose,Whole Blood 159 mg/dL (75-99)
[2018-12-30] MEDS ORDERED: PRAVASTATIN SODIUM 20 MG TAB PO SCH (21:00)
[2018-12-31] MEDS: PIPERACILLIN-TAZOBACTAM 3.375 GM in SODIUM CHLORIDE 0.9% 100 ML IVPB SCH ×2 (01:15→10:32)
[2018-12-31 06:52] LABS: Glucose,Whole Blood 118 mg/dL (75-99)
[2018-12-31] MEDS: PANTOPRAZOLE 40 MG TABLET PO SCH (08:01)
[2018-12-31] MEDS: LACTOBACILLUS ACIDOPH & BULGAR 1 EACH PACKET PO SCH (08:02)
[2018-12-31] MEDS: METOPROLOL TARTRATE 25 MG TAB PO SCH (08:02)
[2018-12-31] MEDS: FUROSEMIDE 40 MG TAB PO SCH (08:02)
[2018-12-31] MEDS: SYMBICORT 160-4.5 MCG INHALER INHALATION SCH (08:19)
[2018-12-31] MEDS: IPRATROPIUM-ALBUTEROL 3 ML NEB INHALATION SCH ×2 (08:19→11:43)
[2018-12-31] MEDS ORDERED: LEVOFLOXACIN 750MG-D5W PMX 750 MG in DEXTROSE/WATER 1 150ML.BAG IVPB SCH (09:00)
--- NOTE | 2018-12-31 10:18 | PN ---
PROGRESS NOTE DATE OF SERVICE: December 31, 2018 This is an 83-year-old gentleman who was seen yesterday in consultation. He has a history of atrial fibrillation, esophageal cancer, hypertension, diabetes, CAD with previous bypass grafting, and other medical problems, who presents to the emergency room because of high temperature and fever. He was also complaining of a bit of shortness of breath. He had a bit of a cough which is mostly nonproductive. Chest x- ray revealed what appears to be bibasilar pneumonia, more on the left than on the right side. His more recent chest x-ray shows improvement in the infiltrates in the right lower lobe. The patient is feeling well. He states that his breathing is good. He has no further temperature elevation. He has mentioned to the nurse that he wants to be discharged home. He does have a previous history of thoracentesis by Dr. Girard, at that time, the cytology was negative. PHYSICAL EXAMINATION: VITAL SIGNS: Current vital signs are reviewed. Temperature 97.9, heart rate 80, respiratory rate 18, blood pressure 117/65, mean 82 and 2 L saturations 100%. Appears in no acute distress. HEENT: Examination is grossly unremarkable. Mucous membranes are moist. No oral lesions. Nasal O2 noted. NECK: Supple. Full range of motion. No adenopathy or thyromegaly. Neck veins are flat. CARDIOVASCULAR: Examination reveals regular rhythm and rate. Heart rate 80. S1, S2 normal. No S3, S4, or murmur. LUNGS: Lung examination reveals a few scattered coarse rhonchi. Breath sounds equal bilaterally. No wheezes. A few scattered crackles. ABDOMEN: Soft. Bowel sounds are heard. EXTREMITIES: Are intact. No cyanosis, clubbing, or edema. SKIN: Without rash. NEUROLOGIC: Examination is brief but nonfocal. Microbiology thus far is negative including blood and urine. Also a right leg wound was cultured but is currently negative. LABORATORY DATA: Nothing new from today noted. X-RAY: His most recent chest x-ray shows a mass in the right lower lobe which will have to be evaluated as an outpatient. It is 4.3 cm in size. There is improved aeration to the right lung base. There is a small left-sided pleural effusion and left basilar airspace disease and/or atelectasis noted. MEDICATIONS: Medications are reviewed. From the standpoint of antibiotics, the patient is on Zosyn. He is also on Levaquin. He has got Symbicort and updrafts. ASSESSMENT: 1. Probable left lower lobe pneumonia. 2. Mass, right base, which will be evaluated as an outpatient. 3. History of esophageal cancer. 4. History of hypertension. 5. Hyperlipidemia. 6. History of gastroesophageal reflux disease. 7. History of chronic kidney disease. 8. Previous bypass grafting. 9. History of appendectomy. 10.Atrial fibrillation. 11.History of previous heavy tobacco use. PLAN: The patient continues on good antibiotics in form of Zosyn and Levaquin. He is getting Symbicort and DuoNeb. Additional recommendations and suggestions are forthcoming. He states today that he would like to be discharged home. So we will make sure that he follows up with us in the office. He will need a couple things evaluated including his underlying COPD, his previous left-sided pleural effusion and right basilar mass. Additional recommendations and suggestions are forthcoming. Prognosis is guarded. MMODL / IJN: [id number] /
--- NOTE | 2018-12-31 11:14 | P.DS ---
Providers Date of admission: 12/29/18 20:46 Expected date of discharge: 12/31/18 Attending physician: Alex Wright Consults: 12/29/18 20:46 Consult Physician Routine Consulting Provider: Cory Ortiz Consult Reason/Comments: dyspnea Do you want consulting provider notified?: Yes Consult Physician Routine Consulting Provider: Eveline Dennison Consult Reason/Comments: oncological care Do you want consulting provider notified?: Yes Primary care physician: Alex Wright Hospital Course: 83-year-old male presented to the emergency room with complaints of a fever and mild occasional cough. Also noted to have bilateral lower leg wounds. Patient has a history of esophageal cancer under the treatment of oncology. Patient was evaluated by pulmonology they will see him outpatient for possible lung mass and COPD evaluation. Patient is to follow-up with oncology for EGD when patient more stable. We'll continue Levaquin for 10 days Assessment Pneumonia sepsis Lung mass to follow-up with pulmonology COPD acute on chronic Anemia chronic disease Intermittent atrial fibrillation Esophageal cancer renal disease GFR 37 Coronary disease with history of CABG Cellulitis lower extremities Plan Patient is no code patient 2F follow-up with family physician Dr. Alex Wright To follow-up with oncology plan for EGD and an anemia follow-up Follow-up with pulmonology regarding possible treatment lung mass and evaluation for COPD Patient Condition at Discharge: Serious Plan - Discharge Summary New Discharge Prescriptions: New Ipratropium-Albuterol Nebulize [Duoneb 0.5 mg-3 mg/3 ml Soln] 3 ml INHALATION RT-QID #120 ampul.neb Levofloxacin [Levaquin] 500 mg PO DAILY #10 tab Budesonide-Formot 160-4.5 Mcg [Symbicort 160-4.5 Mcg Inhaler] 2 puff INHALATION RT-BID #1 puff Continue Metoprolol Tartrate 25 mg PO BID Paricalcitol 2 mcg PO MO Lactobacillus Acidophilus [Acidophilus] 1 tab PO DAILY guaiFENesin [Mucinex] 600 mg PO BID Pravastatin Sodium [Pravachol] 20 mg PO HS Iron Polysaccharide Complex [Ferrex 150] 150 mg PO DAILY Furosemide [Lasix] 40 mg PO DAILY Cholecalciferol [Vitamin D3] 400 unit PO BID Omeprazole 40 mg PO DAILY Discontinued Spironolactone [Aldactone] 25 mg PO DAILY Discharge Medication List Metoprolol Tartrate 25 mg PO BID 05/20/14 [History] Paricalcitol 2 mcg PO MO 05/20/14 [History] Furosemide [Lasix] 40 mg PO DAILY 07/31/18 [History] Iron Polysaccharide Complex [Ferrex 150] 150 mg PO DAILY 07/31/18 [History] Lactobacillus Acidophilus [Acidophilus] 1 tab PO DAILY 07/31/18 [History] Pravastatin Sodium [Pravachol] 20 mg PO HS 07/31/18 [History] guaiFENesin [Mucinex] 600 mg PO BID 07/31/18 [History] Cholecalciferol [Vitamin D3] 400 unit PO BID 12/29/18 [History] Omeprazole 40 mg PO DAILY 12/29/18 [History] Budesonide-Formot 160-4.5 Mcg [Symbicort 160-4.5 Mcg Inhaler] 2 puff INHALATION RT-BID #1 puff 12/31/18 [Rx] Ipratropium-Albuterol Nebulize [Duoneb 0.5 mg-3 mg/3 ml Soln] 3 ml INHALATION RT-QID #120 ampul.neb 12/31/18 [Rx] Levofloxacin [Levaquin] 500 mg PO DAILY #10 tab 12/31/18 [Rx] Follow up Appointment(s)/Referral(s): Alex Wright MD [Primary Care Provider] - 1-2 days [facility], [NON-STAFF] -
--- NOTE | 2018-12-31 11:16 | CDI ---
Documentation Clarification Form Date: 12/31/2018 11:06:26 AM From: Samantha Walsh RN CCDS Admit Date: 12/29/2018 8:46:00 PM Patient Name: Albert Reeves Visit Number: [id number] Discharge Date: ATTENTION: The Clinical Documentation Specialists (CDI) and [facility] Coding Staff appreciate your assistance in clarifying documentation. Please respond to the clarification below the line at the bottom and electronically sign. The CDI & [facility] Coding staff will review the response and follow-up if needed. Please note: Queries are made part of the Legal Health Record. If you have any questions, please contact the author of this message via ITS. Dr. Alex Wright Pneumonia was documented in your H & P History/Risk Factors: 83 year old male presents to the ED with fever, cough and hypoxia. Medical history Atrial Fibrillation, HTN, Renal Disease, Esophageal Cancer. Clinical Indicators: Vital signs: 117/65 98 97.9 18 100% 2L WBC 6.3 CXR stable marked bilateral pleural parenchymal abnormalities, greater left Lung/Breathing assessment Diminished. Treatment: Antibiotics Zosyn ivpb , Levaquin ivpb Oxygen 2L Breathing Tx: In order to capture the severity of condition, please clarify if the condition signifies and you are treating for: * Aspiration Pneumonia, identify if: Due to solids or liquids * Bacterial Pneumonia, specify causal organism (if known) * Gram Negative Pneumonia * Other bacteria (please specify) * Community Acquired Pneumonia * Other, please specify * Unable to determine prog notes addendum done MTDD
[2018-12-31 12:47] VITALS: BP 136/80; PULSE 98; RESP 16; TEMP 97.8
[2018-12-31] MEDS: IRON POLYSACCHARIDES COMPLEX 150 MG CAP PO SCH (12:51)
[2018-12-31 15:43] LABS: Iron Saturation 15.18 (15.00-50.00)
[2019-01-02] MEDS ORDERED: LEVOFLOXACIN 750 MG TAB PO SCH (08:00)
--- NOTE | 2019-01-12 12:50 | P.PN ---
Progress Note - Text addendum pneumonia community acquired sepsis acute on chronic COPD lung mass
== END 2018-12-31 14:00 | disposition home health service (06) | DRG 871 ==
LOC: EC 18:13 → 3NMEDONC 20:46
PROVIDERS: ADMIT Family Medicine; ATTEND Family Medicine
DX: A41.9 Sepsis, unspecified organism (principal); J18.9 Pneumonia, unspecified organism; D61.818 Other pancytopenia; C15.9 Malignant neoplasm of esophagus, unspecified; J44.0 Chronic obstructive pulmonary disease with (acute) lower respiratory infection; L03.115 Cellulitis of right lower limb; L03.116 Cellulitis of left lower limb; I48.91 Unspecified atrial fibrillation; E11.22 Type 2 diabetes mellitus with diabetic chronic kidney disease; E78.5 Hyperlipidemia, unspecified; D63.8 Anemia in other chronic diseases classified elsewhere; I25.10 Atherosclerotic heart disease of native coronary artery without angina pectoris; Z96.643 Presence of artificial hip joint, bilateral; N18.9 Chronic kidney disease, unspecified; Z96.652 Presence of left artificial knee joint; R91.8 Other nonspecific abnormal finding of lung field; I12.9 Hypertensive chronic kidney disease with stage 1 through stage 4 chronic kidney disease, or unspecified chronic kidney disease; K21.9 Gastro-esophageal reflux disease without esophagitis; Z80.6 Family history of leukemia; Z79.899 Other long term (current) drug therapy; Z90.49 Acquired absence of other specified parts of digestive tract; Z95.1 Presence of aortocoronary bypass graft
CPT/HCPCS: 36415; 71046; 80053; 81001; 82728; 83540; 83550; 83605; 85025; 85045; 85610; 85730; 87040; 87070; 87077; 87086; 87186; 87205; 93005; 94640; 96360; 96361; 99291

== ENCOUNTER → 2019-01-04 | Outpatient (CLI) | payer MEDICARE ==
[~2019-01-04] MED LIST: SODIUM CHLORIDE 0.9% 500 ML 500 ML in EMPTY BAG 1 BAG IV PRN
[2019-01-04 13:23] VITALS: BP 102/65; PULSE 95; RESP 18; TEMP 98
== END ==
LOC: PROCWHC3 10:07
PROVIDERS: ATTEND Internal Medicine Hematology & Oncology
DX: D64.9 Anemia, unspecified (principal)
CPT/HCPCS: 36430; 86850; 86900; 86901; 86920

== ENCOUNTER 2019-02-20 20:25 | Inpatient (IN) | payer MEDICARE ==
[2019-02-20] MEDS ORDERED: IBUPROFEN 600 MG TAB PO STA (20:54)
[2019-02-20] MEDS ORDERED: ACETAMINOPHEN TAB 500 MG TAB PO STA (20:54)
[2019-02-20] MEDS ORDERED: SODIUM CHLORIDE 0.9% 1,000 ML IV STA ×3 (20:54→22:40)
[2019-02-20] MEDS ORDERED: DILTIAZEM DRIP BOLUS FROM BAG 1 MG SOLN IV ONE (20:54)
--- NOTE | 2019-02-20 20:54 | ED ---
SOB HPI - General Chief Complaint: Shortness of Breath Stated Complaint: Fever, cough Time Seen by Provider: 02/20/19 20:33 Source: patient, RN notes reviewed, old records reviewed Mode of arrival: wheelchair Limitations: no limitations - History of Present Illness Initial Comments: This is a 83-year-old male the ER for evaluation patient has history of esophageal cancer. Patient comes in today for shortness of breath weakness and not feeling well. Patient states symptoms started FOR both afternoon. Patient didfever cough. Shortness of breath positive. Feels like his heart is racing. Patient not eating or drinking as much as He should but it is difficult with his is CA. No recent medication changes patient was seen by family doctor earlier this week without significant findings or complaint. Patient denies any current pain. MD Complaint: shortness of breath, cough -: hour(s) Severity: severe Severity scale (1-10): 8 Consistency: constant Improves With: oxygen, rest Worsens With: exertion, movement Known History Of: aspiration pneumonia, other (Atrial fibrillation) Context: recent URI Associated Symptoms: fever, cough, palpitations, nausea/vomiting Treatments Prior to Arrival: none - Related Data Home Medications Medication Instructions Recorded Confirmed Metoprolol Tartrate 25 mg PO BID 05/20/14 02/20/19 Paricalcitol 2 mcg PO MO 05/20/14 02/20/19 Furosemide [Lasix] 40 mg PO DAILY 07/31/18 02/20/19 Iron Polysaccharide Complex 150 mg PO DAILY 07/31/18 02/20/19 [Ferrex 150] Lactobacillus Acidophilus 1 tab PO DAILY 07/31/18 02/20/19 [Acidophilus] Pravastatin Sodium [Pravachol] 20 mg PO HS 07/31/18 02/20/19 guaiFENesin [Mucinex] 600 mg PO BID 07/31/18 02/20/19 Cholecalciferol [Vitamin D3] 400 unit PO BID 12/29/18 02/20/19 Omeprazole 40 mg PO DAILY 12/29/18 02/20/19 Previous Rx's Medication Instructions Recorded Budesonide-Formot 160-4.5 Mcg 2 puff INHALATION RT-BID #1 puff 12/31/18 [Symbicort 160-4.5 Mcg Inhaler] Ipratropium-Albuterol Nebulize 3 ml INHALATION RT-QID #120 12/31/18 [Duoneb 0.5 mg-3 mg/3 ml Soln] ampul.neb Allergies Allergy/AdvReac Type Severity Reaction Status Date / Time No Known Allergies Allergy Verified 02/20/19 20:59 Review of Systems ROS Statement: Those systems with pertinent positive or pertinent negative responses have been documented in the HPI. ROS Other: All systems not noted in ROS Statement are negative. Past Medical History Past Medical History: Atrial Fibrillation, Cancer, Hypertension, Renal Disease Additional Past Medical History / Comment(s): Hx of diabetes. Esophogeal cancer History of Any Multi-Drug Resistant Organisms: None Reported Past Surgical History: Appendectomy, Coronary Bypass/CABG, Orthopedic Surgery Additional Past Surgical History / Comment(s): bilateral hip replacement and Left Knee replacement Past Anesthesia/Blood Transfusion Reactions: No Reported Reaction Past Psychological History: No Psychological Hx Reported Smoking Status: Former smoker Past Alcohol Use History: Rare Past Drug Use History: None Reported - Past Family History Mother Additional Family Medical History / Comment(s): Leukemia General Exam Limitations: no limitations General appearance: alert, anxious, cachectic Head exam: Present: atraumatic, normocephalic, normal inspection Eye exam: Present: normal appearance, PERRL, EOMI. Absent: scleral icterus, co njunctival injection, periorbital swelling ENT exam: Present: normal exam, mucous membranes dry Neck exam: Present: normal inspection. Absent: tenderness, meningismus, lymphadenopathy Respiratory exam: Present: normal lung sounds bilaterally, rales, rhonchi, accessory muscle use, decreased breath sounds, prolonged expiratory. Absent: respiratory distress, wheezes, stridor Cardiovascular Exam: Present: normal rhythm, tachycardia, normal heart sounds. Absent: systolic murmur, diastolic murmur, rubs, gallop, clicks GI/Abdominal exam: Present: soft, normal bowel sounds. Absent: distended, tenderness, guarding, rebound, rigid Extremities exam: Present: normal inspection, full ROM, normal capillary refill. Absent: tenderness, pedal edema, joint swelling, calf tenderness Back exam: Present: normal inspection Neurological exam: Present: alert, oriented X3, CN II-XII intact Psychiatric exam: Present: normal affect, normal mood Skin exam: Present: warm, dry, intact, normal color. Absent: rash Course Vital Signs 02/20/19 02/20/19 02/20/19 20:34 20:54 21:36 Temperature 101.5 F H Pulse Rate 122 H 111 H Respiratory 20 26 H 20 Rate Blood Pressure 122/58 110/82 O2 Sat by Pulse 85 L 97 Oximetry 02/20/19 02/20/19 02/20/19 21:53 21:54 22:00 Temperature Pulse Rate 70 69 70 Respiratory 20 24 Rate Blood Pressure 90/53 85/36 O2 Sat by Pulse 94 L 96 Oximetry 02/20/19 22:02 Temperature Pulse Rate 76 Respiratory Rate Blood Pressure O2 Sat by Pulse Oximetry - Reevaluation(s) Reevaluation #1: 02/20/19 21:58 Medical records reviewed Reevaluation #2: 02/20/19 21:58 Patient symptoms improved with rate control, fever control Reevaluation #3: 02/20/19 21:58 Breathing improved after breathing treatment Reevaluation #4: 02/20/19 23:38 Patient's blood pressure did start the GoLYTELY the heart rate was improved, patient given significant IV fluid bolus with improvement of blood pressure but will be started on the levophed - Consultations Consultation #1: Dr. perez is covering for Dr. Wright this weekend as well as Dr. Herrera is agreeable for ICU admission Procedures - Sepsis Sepsis Focused Exam #1 Time Sepsis Criteria Met: 23:36 Sepsis Focused Exam Complete: Yes Vital Signs & RN Notes Reviewed: Yes Capillary Refill: < 2 Seconds: Fingers, Toes Peripheral Pulses: Normal: Radial (R), Radial (L), Posterior Tibialis (R), Posterior Tibialis (L), Dorsalis Pedis (R), Dorsalis Pedis (L) Skin Color: Normal for Patient, Erythema Respiratory Exam: respiratory distress Cardiovascular Exam: regular rate, irregular rhythm Medical Decision Making - Medical Decision Making 83 male the ER for evaluation. Patient has both cardiovascular and septic shock, patient had A. fib with RVR now with low heart rate low blood pressure, complicated by significant pneumonia. Patient will be admitted to ICU for continued hemodynamic monitoring, patient was given significant IV fluid bolus started on antibiotics and levophed - Lab Data Result diagrams: 02/20/19 20:55 02/20/19 20:55 Lab Results 02/20/19 02/20/19 02/20/19 Range/Units 20:55 20:55 20:55 WBC 5.9 (3.8-10.6) k/uL RBC 3.30 L (4.30-5.90) m/uL Hgb 9.9 L D (13.0-17.5) gm/dL Hct 32.2 L (39.0-53.0) % MCV 97.4 (80.0-100.0) fL MCH 30.1 (25.0-35.0) pg MCHC 30.9 L (31.0-37.0) g/dL RDW 16.8 H (11.5-15.5) % Plt Count 165 (150-450) k/uL Neutrophils % 85 % Lymphocytes % 7 % Monocytes % 4 % Eosinophils % 2 % Basophils % 1 % Neutrophils # 5.0 (1.3-7.7) k/uL Lymphocytes # 0.4 L (1.0-4.8) k/uL Monocytes # 0.3 (0-1.0) k/uL Eosinophils # 0.1 (0-0.7) k/uL Basophils # 0.0 (0-0.2) k/uL Hypochromasia Marked Anisocytosis Slight Macrocytosis Slight PT (9.0-12.0) sec INR (<1.2) APTT (22.0-30.0) sec Sodium 141 (137-145) mmol/L Potassium 4.0 (3.5-5.1) mmol/L Chloride 105 (98-107) mmol/L Carbon Dioxide 27 (22-30) mmol/L Anion Gap 9 mmol/L BUN 33 H (9-20) mg/dL Creatinine 1.37 H (0.66-1.25) mg/dL Est GFR (CKD-EPI)AfAm 54 (>60 ml/min/1.73 sqM) Est GFR (CKD-EPI)NonAf 47 (>60 ml/min/1.73 sqM) Glucose 125 H (74-99) mg/dL Plasma Lactic Acid Rory 2.2 H* (0.7-2.0) mmol/L Calcium 9.9 (8.4-10.2) mg/dL Phosphorus 3.1 (2.5-4.5) mg/dL Magnesium 1.7 (1.6-2.3) mg/dL Total Bilirubin 1.0 (0.2-1.3) mg/dL AST 21 (17-59) U/L ALT 16 L (21-72) U/L Alkaline Phosphatase 164 H (38-126) U/L Creatine Kinase 21 L (55-170) U/L Troponin I (0.000-0.034) ng/mL NT-Pro-B Natriuret Pep pg/mL Total Protein 7.0 (6.3-8.2) g/dL Albumin 3.5 (3.5-5.0) g/dL Urine Color Urine Appearance (Clear) Urine pH (5.0-8.0) Ur Specific [place] (1.001-1.035) Urine Protein (Negative) Urine Glucose (UA) (Negative) Urine Ketones (Negative) Urine Blood (Negative) Urine Nitrite (Negative) Urine Bilirubin (Negative) Urine Urobilinogen (<2.0) mg/dL Ur Leukocyte Esterase (Negative) Influenza Type A RNA (Not Detectd) Influenza Type B (PCR) (Not Detectd) 02/20/19 02/20/19 02/20/19 Range/Units 20:55 20:55 20:55 WBC (3.8-10.6) k/uL RBC (4.30-5.90) m/uL Hgb (13.0-17.5) gm/dL Hct (39.0-53.0) % MCV (80.0-100.0) fL MCH (25.0-35.0) pg MCHC (31.0-37.0) g/dL RDW (11.5-15.5) % Plt Count (150-450) k/uL Neutrophils % % Lymphocytes % % Monocytes % % Eosinophils % % Basophils % % Neutrophils # (1.3-7.7) k/uL Lymphocytes # (1.0-4.8) k/uL Monocytes # (0-1.0) k/uL Eosinophils # (0-0.7) k/uL Basophils # (0-0.2) k/uL Hypochromasia Anisocytosis Macrocytosis PT 11.7 (9.0-12.0) sec INR 1.1 (<1.2) APTT 25.5 (22.0-30.0) sec Sodium (137-145) mmol/L Potassium (3.5-5.1) mmol/L Chloride (98-107) mmol/L Carbon Dioxide (22-30) mmol/L Anion Gap mmol/L BUN (9-20) mg/dL Creatinine (0.66-1.25) mg/dL Est GFR (CKD-EPI)AfAm (>60 ml/min/1.73 sqM) Est GFR (CKD-EPI)NonAf (>60 ml/min/1.73 sqM) Glucose (74-99) mg/dL Plasma Lactic Acid Rory (0.7-2.0) mmol/L Calcium (8.4-10.2) mg/dL Phosphorus (2.5-4.5) mg/dL Magnesium (1.6-2.3) mg/dL Total Bilirubin (0.2-1.3) mg/dL AST (17-59) U/L ALT (21-72) U/L Alkaline Phosphatase (38-126) U/L Creatine Kinase (55-170) U/L Troponin I <0.012 (0.000-0.034) ng/mL NT-Pro-B Natriuret Pep 6440 pg/mL Total Protein (6.3-8.2) g/dL Albumin (3.5-5.0) g/dL Urine Color Urine Appearance (Clear) Urine pH (5.0-8.0) Ur Specific [place] (1.001-1.035) Urine Protein (Negative) Urine Glucose (UA) (Negative) Urine Ketones (Negative) Urine Blood (Negative) Urine Nitrite (Negative) Urine Bilirubin (Negative) Urine Urobilinogen (<2.0) mg/dL Ur Leukocyte Esterase (Negative) Influenza Type A RNA (Not Detectd) Influenza Type B (PCR) (Not Detectd) 02/20/19 02/20/19 Range/Units 21:03 21:20 WBC (3.8-10.6) k/uL RBC (4.30-5.90) m/uL Hgb (13.0-17.5) gm/dL Hct (39.0-53.0) % MCV (80.0-100.0) fL MCH (25.0-35.0) pg MCHC (31.0-37.0) g/dL RDW (11.5-15.5) % Plt Count (150-450) k/uL Neutrophils % % Lymphocytes % % Monocytes % % Eosinophils % % Basophils % % Neutrophils # (1.3-7.7) k/uL Lymphocytes # (1.0-4.8) k/uL Monocytes # (0-1.0) k/uL Eosinophils # (0-0.7) k/uL Basophils # (0-0.2) k/uL Hypochromasia Anisocytosis Macrocytosis PT (9.0-12.0) sec INR (<1.2) APTT (22.0-30.0) sec Sodium (137-145) mmol/L Potassium (3.5-5.1) mmol/L Chloride (98-107) mmol/L Carbon Dioxide (22-30) mmol/L Anion Gap mmol/L BUN (9-20) mg/dL Creatinine (0.66-1.25) mg/dL Est GFR (CKD-EPI)AfAm (>60 ml/min/1.73 sqM) Est GFR (CKD-EPI)NonAf (>60 ml/min/1.73 sqM) Glucose (74-99) mg/dL Plasma Lactic Acid Rory (0.7-2.0) mmol/L Calcium (8.4-10.2) mg/dL Phosphorus (2.5-4.5) mg/dL Magnesium (1.6-2.3) mg/dL Total Bilirubin (0.2-1.3) mg/dL AST (17-59) U/L ALT (21-72) U/L Alkaline Phosphatase (38-126) U/L Creatine Kinase (55-170) U/L Troponin I (0.000-0.034) ng/mL NT-Pro-B Natriuret Pep pg/mL Total Protein (6.3-8.2) g/dL Albumin (3.5-5.0) g/dL Urine Color Yellow Urine Appearance Clear (Clear) Urine pH 5.0 (5.0-8.0) Ur Specific [place] 1.010 (1.001-1.035) Urine Protein Negative (Negative) Urine Glucose (UA) Negative (Negative) Urine Ketones Negative (Negative) Urine Blood Negative (Negative) Urine Nitrite Negative (Negative) Urine Bilirubin Negative (Negative) Urine Urobilinogen <2.0 (<2.0) mg/dL Ur Leukocyte Esterase Negative (Negative) Influenza Type A RNA Not Detected (Not Detectd) Influenza Type B (PCR) Not Detected (Not Detectd) - EKG Data -: EKG Interpreted by Me (EKG shows A. fib with RVR 124, QRS 80, QTC 440) EKG shows normal: sinus rhythm (EKG shows A. fib with regular rate of 78, QRS 104, QTc 458) - Radiology Data Radiology results: report reviewed (CXR shows pleural effusion with underlying p neumonia), image reviewed Disposition Clinical Impression: Sepsis, Anemia, Pneumonia, Community acquired pneumonia, Atrial fibrillation with RVR, Shock Disposition: ADMITTED IP TO THIS HOSP Condition: Serious Is patient prescribed a controlled substance at d/c from ED?: No Referrals: Alex Wright MD [Primary Care Provider] - 1-2 days
[2019-02-20] MEDS: DILTIAZEM 125 MG in SODIUM CHLORIDE 0.9% 100 ML IV SCH (21:07)
[2019-02-20 21:12] LABS: Anisocytosis Slight; Basophils % (A) 1 %; Eosinophils # (A) 0.1 k/uL (0-0.7); Eosinophils % (A) 2 %; HCT 32.2 % (39.0-53.0); Hypochromasia Marked; Lymphocytes # (A) 0.4 k/uL (1.0-4.8); Lymphocytes % (A) 7 %; MCH 30.1 pg (25.0-35.0); MCHC 30.9 g/dL (31.0-37.0); MCV 97.4 fL (80.0-100.0); Macrocytosis Slight; Mean Platelet Volume 8.3; Monocytes # (A) 0.3 k/uL (0-1.0); Monocytes % (A) 4 %; Neutrophils % (A) 85 %; Platelet Count 165 k/uL (150-450); RDW 16.8 % (11.5-15.5); WBC 5.9 k/uL (3.8-10.6)
[2019-02-20 21:13] LABS: HGB 9.9 gm/dL (13.0-17.5)
[2019-02-20 21:17] LABS: Albumin 3.5 g/dL (3.5-5.0); Calcium 9.9 mg/dL (8.4-10.2); INR 1.1 (<1.2); Magnesium 1.7 mg/dL (1.6-2.3); Partial Thromboplastin Time 25.5 sec (22.0-30.0); Phosphorus 3.1 mg/dL (2.5-4.5); Prothrombin Time 11.7 sec (9.0-12.0)
[2019-02-20 21:29] LABS: Appearance,Urine Clear (Clear); Bilirubin,Urine Negative (Negative); Blood,Urine Negative (Negative); Color,Urine Yellow; Glucose,Urine (UA) Negative (Negative); Ketones,Urine Negative (Negative); Leukocyte Esterase,Urine Negative (Negative); Nitrite,Urine Negative (Negative); Protein,Urine Negative (Negative); Urobilinogen,Urine <2.0 mg/dL (<2.0)
[2019-02-20] MEDS ORDERED: IPRATROPIUM-ALBUTEROL 3 ML NEB INHALATION STA (21:31)
--- NOTE | 2019-02-20 21:56 | XR ---
EXAMINATION TYPE: XR chest 2V DATE OF EXAM: 02/20/2019 COMPARISON: 12/30/2018 INDICATION: Weakness fever, cough TECHNIQUE: Frontal and lateral views of the chest are obtained. FINDINGS: The heart size is normal. The pulmonary vasculature is normal. Left lower lobe infiltrate is present. Small left pleural effusion may be present. There is a small r ight pleural effusion. Previous density at the right base may be obscured by this basilar infiltrate and/or effusion. Follow-up is recommended. Port is present on the right. Sternotomy wires are present CABG. 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 IMPRESSION: 1. Basilar infiltrates larger on the left with suggestion of small bilateral pleural effusions. Corre late for pneumonia. Follow-up to clearing is recommended.
[2019-02-20] MEDS ORDERED: SODIUM CHLORIDE 0.9% 2,000 ML IV STA (22:40)
[2019-02-20] MEDS ORDERED: PNEUMONIA PROTOCOL UTILIZED 1 EACH MISC PO PRN (22:41)
[2019-02-20] MEDS ORDERED: PIPERACILLIN-TAZOBACTAM 3.375 GM in SODIUM CHLORIDE 0.9% 100 ML IVPB STA (22:41)
[2019-02-20] MEDS ORDERED: LEVOFLOXACIN 750MG-D5W PMX 750 MG in DEXTROSE/WATER 1 150ML.BAG IVPB STA (22:41)
[2019-02-20] MEDS: HYDROCORTISONE SUCCINATE 100 MG/2 ML VIAL IV SCH (23:36)
[2019-02-20] MEDS: NOREPINEPHRINE 4 MG in SODIUM CHLORIDE 0.9% 250 ML IV SCH (23:42)
[2019-02-21 00:59] LABS: Glucose,Whole Blood 131 mg/dL (75-99)
[2019-02-21] MEDS: PIPERACILLIN-TAZOBACTAM 3.375 GM in SODIUM CHLORIDE 0.9% 100 ML IVPB SCH ×3 (02:18→16:01)
[2019-02-21] MEDS: SODIUM CHLORIDE 0.9% 1,000 ML IV SCH ×3 (03:47→08:45)
[2019-02-21 05:34] LABS: Anisocytosis Slight; Basophils % (A) 0 %; Eosinophils % (A) 0 %; HCT 29.9 % (39.0-53.0); HGB 9.4 gm/dL (13.0-17.5); Hypochromasia Marked; Lymphocytes # (A) 0.2 k/uL (1.0-4.8); Lymphocytes % (A) 3 %; MCH 31.7 pg (25.0-35.0); MCHC 31.4 g/dL (31.0-37.0); Macrocytosis Slight; Mean Platelet Volume 8.6; Monocytes # (A) 0.1 k/uL (0-1.0); Monocytes % (A) 1 %; Neutrophils # (A) 6.5 k/uL (1.3-7.7); Neutrophils % (A) 95 %; Platelet Count 117 k/uL (150-450); RBC 2.96 m/uL (4.30-5.90); RDW 16.9 % (11.5-15.5); WBC 6.9 k/uL (3.8-10.6)
[2019-02-21 05:46] LABS: Calcium 8.8 mg/dL (8.4-10.2); Potassium 3.9 mmol/L (3.5-5.1)
--- NOTE | 2019-02-21 06:28 | P.CNPUL ---
History of Present Illness Consult date: 02/21/19 Reason for consult: dyspnea, cough History of present illness: 83-year-old male patient came into the emergency department which shortness of breath and generalized weakness. Note that the patient in the emergency was found to be short of breath. He was tachycardic and he was in atrial fibrillation which is a chronic problem that he was developing a rate of 130. No fever. No hemoptysis. No pleurisy. The patient came in to the intensive care unit after he became hypotensive. Apparently was given Cardizem drip and subsequently became hypotensive. The Cardizem drip was discontinued and he was placed on norepinephrine infusion which was running at 5 g per minute and ultimately the norepinephrine infusion was discontinued. Current blood pressure is is 117/74 with a heart rate of 78. His pulse is 98% 4l of 2 by nasal cannula. He was given a total of 2 L of IV fluids. He is hemodynamically stable. He is producing good urine output. This patient is known to have multiple medical problems including coronary artery disease, previous coronary artery bypass surgery, diabetes mellitus, hypertension, atrial fibrillation and history of esophageal cancer and chronic stage III kidney disease . 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 He had a follow up PET scan on 04/24/2018 which revealed uptake at distal esophagus,stable midly prominent mediastinal nodes and small bilateral pleural effusion. He also had a repeat CT scan of chest/abdomen/pelvis on 06/18/2018,stable finding compared to prior PET scan. He had a repeat EGD on 06/10/2018 biopsy revealed high grade dysplasia and intestinal metaplasia,malignancy could not be excluded. In regard to his a nemia,he has been requiring intermittent blood transfusion,it has become almost every 3 weeks since May/2018 despite procrit supplement. The patient was not felt to be a good candidate for esophageal resection. His last EGD and biopsy did not show any invasive malignancy. However local recurrence cannot be completely ruled out. The patient is still being followed up with oncology. She also has a left-sided pleural effusion with a total of 1.3 L of fluid was aspirated and the fluid cytology came back negative for malignancy. Subsequently, he came into the hospital back in December 2018 for pneumonia, treated and discharged home. A repeat chest x-ray was done today and I do not see any major difference in the chest x-ray findings. There are bilateral pleural effusions are chronic and are present back in December 2018. Review of Systems Constitutional: Reports fatigue, Reports weakness, Reports weight loss Eyes: denies blurred vision, denies pain Ears: deny: decreased hearing, ear discharge, earache, tinnitus Ears, nose, mouth and throat: Reports dysphagia (just with pills), Denies headache, Denies sore throat Cardiovascular: Reports dyspnea on exertion Respiratory: Reports cough, Reports dyspnea Gastrointestinal: Denies abdominal pain, Denies diarrhea, Denies nausea, Denies vomiting Genitourinary: Reports as per HPI Musculoskeletal: Reports muscle weakness Integumentary: Denies pruritus, Denies rash Neurological: Reports weakness Psychiatric: Denies anxiety, Denies depression Endocrine: Reports fatigue, Reports weight change Hematologic/Lymphatic: Reports as per HPI Past Medical History Past Medical History: Atrial Fibrillation, Cancer, COPD, Diabetes Mellitus, Hypertension, Renal Disease Additional Past Medical History / Comment(s): Coronary artery disease and a previous CABG X4 2011 in [place], as esophageal cancer details discussed above, chronic anemia, chronic bilateral pleural effusion left more than right and the patient has had a previous thoracentesis indicating no evidence of any maligna ncy, chronic kidney disease, chronic atrial fibrillation, hypertension, diabetes mellitus History of Any Multi-Drug Resistant Organisms: None Reported Past Surgical History: Appendectomy, Coronary Bypass/CABG, Orthopedic Surgery Additional Past Surgical History / Comment(s): bilateral hip replacement and Left Knee replacement Past Anesthesia/Blood Transfusion Reactions: No Reported Reaction Smoking Status: Former smoker - Past Family History Brother(s) Family Medical History: Cancer, Myocardial Infarction ([place]) Additional Family Medical History / Comment(s): "One of a heart attack at age of 45". "Another of a cancer, dont know what kind" Mother Additional Family Medical History / Comment(s): Leukemia Medications and Allergies Home Medications Medication Instructions Recorded Confirmed Type Metoprolol Tartrate 25 mg PO BID 05/20/14 02/20/19 History Paricalcitol 2 mcg PO MO 05/20/14 02/20/19 History Furosemide [Lasix] 40 mg PO DAILY 07/31/18 02/20/19 History Iron Polysaccharide Complex 150 mg PO DAILY 07/31/18 02/20/19 History [Ferrex 150] Lactobacillus Acidophilus 1 tab PO DAILY 07/31/18 02/20/19 History [Acidophilus] Pravastatin Sodium [Pravachol] 20 mg PO HS 07/31/18 02/20/19 History guaiFENesin [Mucinex] 600 mg PO BID 07/31/18 02/20/19 History Cholecalciferol [Vitamin D3] 400 unit PO BID 12/29/18 02/20/19 History Omeprazole 40 mg PO DAILY 12/29/18 02/20/19 History Budesonide-Formot 160-4.5 Mcg 2 puff INHALATION RT-BID #1 puff 12/31/18 02/20/19 Rx [Symbicort 160-4.5 Mcg Inhaler] Ipratropium-Albuterol Nebulize 3 ml INHALATION RT-QID #120 12/31/18 02/20/19 Rx [Duoneb 0.5 mg-3 mg/3 ml Soln] ampul.neb Allergies Allergy/AdvReac Type Severity Reaction Status Date / Time No Known Allergies Allergy Verified 02/20/19 20:59 Physical Exam Vitals: Vital Signs Temp Pulse Resp BP Pulse Ox 02/21/19 04:45 80 19 117/54 98 02/21/19 04:30 70 17 127/68 99 02/21/19 04:15 80 15 116/70 98 02/21/19 04:00 98.1 F 73 21 119/61 98 02/21/19 03:45 87 33 H 125/64 97 02/21/19 03:35 94 L 02/21/19 03:30 71 35 H 116/62 94 L 02/21/19 03:15 67 19 113/61 99 02/21/19 03:00 71 39 H 122/67 97 02/21/19 02:48 97.7 F 90 L 02/21/19 02:45 80 32 H 119/66 95 02/21/19 02:40 76 34 H 119/66 95 02/21/19 02:30 76 23 113/66 97 02/21/19 02:20 71 23 113/66 97 02/21/19 02:10 72 25 H 111/64 98 02/21/19 02:00 82 16 113/61 94 L 02/21/19 01:50 79 27 H 113/61 94 L 02/21/19 01:40 72 21 104/63 95 02/21/19 01:30 74 20 104/55 94 L 02/21/19 01:20 71 18 104/55 94 L 02/21/19 01:16 93 L 02/21/19 01:10 64 20 106/55 87 L 02/21/19 01:00 97.7 F 73 18 89/47 92 L 02/21/19 00:50 73 28 H 89/47 74 L 02/21/19 00:48 75 22 02/21/19 00:37 70 18 91/46 95 02/21/19 00:10 98.5 F 73 20 87/42 97 02/21/19 00:07 70 18 81/38 97 02/20/19 22:02 76 02/20/19 22:00 70 24 85/36 96 02/20/19 21:54 69 02/20/19 21:53 70 20 90/53 94 L 02/20/19 21:36 111 H 20 110/82 97 02/20/19 20:54 26 H 02/20/19 20:34 101.5 F H 122 H 20 122/58 85 L Intake and Output 02/20/19 02/20/19 02/21/19 14:59 22:59 06:59 Intake Total 337.326 Balance 337.326 Intake: IV 260 Sodium Chloride 0.9% 1, 260 000 ml @ 130 mls/hr IV . Q7H42M KARLEE Rx#:[id number] Intake, IV Titration 77.326 Amount Norepinephrine 4 mg In 77.326 Sodium Chloride 0.9% 250 ml @ 0.05 MCG/KG/MIN 15. 813 mls/hr IV .Q16H4M KARLEE Rx#:[id number] Other: # Voids 0 Weight 83.007 kg Appearance, comfortable likely distress Head exam was generally normal. There was no scleral icterus or corneal arcus. Mucous membranes were moist. Neck was supple and without jugular venous distension, thyromegaly, or carotid bruits. Carotids were easily palpable bilaterally. There was no adenopathy. Lungs sounds are diminished in lung bases left more than right. No significant crackles or rhonchi or any wheezes. There is a MediPort over the anterior chest area and exit site is dry clean and intact. Cardiac exam revealed the PMI to be normally situated and sized. The rhythm was irregular and consistent with atrial fibrillation. and no extrasystoles were noted during several minutes of auscultation. The first and second heart sounds were normal and physiologic splitting of the second heart sound was noted. There were no murmurs, rubs, clicks, or gallops.Abdominal exam revealed normal bowel sounds. The abdomen was soft, non-tender, and without masses, organomegaly, or appreciable enlargement of the abdominal aorta. Examination of the extremities revealed easily palpable radial, femoral and pedal pulses. There was no cyanosis, clubbing or edema. Examination of the skin revealed no evidence of significant rashes, suspicious appearing nevi or other concerning lesions. Neurologically awake and alert and there is no focal neurological deficits. Results - Laboratory Findings CBC and BMP: 02/21/19 05:19 02/21/19 05:19 PT/INR, D-dimer PT 11.7 sec (9.0-12.0) 02/20/19 20:55 INR 1.1 (<1.2) 02/20/19 20:55 Abnormal lab findings: Abnormal Labs 02/20/19 02/20/19 02/20/19 20:55 20:55 20:55 RBC 3.30 L Hgb 9.9 L D Hct 32.2 L MCV MCHC 30.9 L RDW 16.8 H Plt Count Lymphocytes # 0.4 L BUN 33 H Creatinine 1.37 H Glucose 125 H POC Glucose (mg/dL) Plasma Lactic Acid Rory 2.2 H* ALT 16 L Alkaline Phosphatase 164 H Creatine Kinase 21 L 02/21/19 02/21/19 02/21/19 00:47 05:19 05:19 RBC 2.96 L Hgb 9.4 L Hct 29.9 L MCV 101.0 H MCHC RDW 16.9 H Plt Count 117 L Lymphocytes # 0.2 L BUN 35 H Creatinine 1.58 H Glucose 167 H POC Glucose (mg/dL) 131 H Plasma Lactic Acid Rory ALT Alkaline Phosphatase Creatine Kinase - Diagnostic Findings Chest x-ray: image reviewed Assessment and Plan Plan: 1 shortness of breath, acute on chronic, exact cause is not clear. This could have been exacerbated by A. fib RVR which is a chronic problem yet the patient came in with some tachycardia increased ventricular rate which was essentially controlled. Chest x-ray showing bilateral chronic pleural effusions left more than right. The patient has had previous thoracentesis on the left indicating no malignancy. He is known to have esophageal cancer. A follow-up CAT scan of the chest and abdomen will be needed to assess the progression of his disease knowing that his last CAT scan was done in May 2018. Also, a echocardiogram will be needed to assess his LV function. Pneumonia is felt to be doubtful at this stage. He is covered with broad-spectrum antibiotics. Check a pro- calcitonin level 2 esophageal cancer and the patient has a distal esophageal or differentiated adenocarcinoma treated with systemic chemotherapy utilizing a combination of carboplatinum and Taxol and radiation therapy. History of mental was completed on 03/10/2019 and since then is being n monitored 3 chronic atrial fibrillation 4 coronary artery disease previous bypass surgery 5 chronic stage III kidney disease 6 diabetes mellitus 7 hypertension 8 chronic anemia Plan Obtain a CAT scan of the chest and abdomen. Avoid giving contrast due to his underlying renal insufficiency. Obtain an echocardiogram. Obtain pro- calcitonin level. Intensive antibiotic coverage for now until infection is ruled out. The patient's heart rate is under better control. No need for pressors at this point in time. The patient has not been found to be a good candidate for anticoagulation due to previous bouts of bleeding and chronic anemia and his requirement for blood transfusion which has become on intermittently basis.. Start metoprolol 25 mg by mouth twice a day. Discontinue the Cardizem drip. Discontinue the norepinephrine infusion. Into normal saline at the rate of 50 mL an hour. Provide oral diet. We'll continue to follow.
[2019-02-21] MEDS ORDERED: IOPAMIDOL CONTRAST (ORAL USE) VIAL PO PRN (06:29)
[2019-02-21 07:01] LABS: Glucose,Whole Blood 161 mg/dL (75-99)
[2019-02-21] MEDS: HYDROCORTISONE SUCCINATE 100 MG/2 ML VIAL IV SCH ×3 (07:24→23:22)
[2019-02-21] MEDS: IPRATROPIUM-ALBUTEROL 3 ML NEB INHALATION SCH ×4 (07:32→19:51)
--- NOTE | 2019-02-21 08:12 | XR ---
EXAMINATION TYPE: XR chest 1V DATE OF EXAM: 02/21/2019 HISTORY: pneumonia. REFERENCE: Previous study dated 02/20/2019. FINDINGS: There is a Port-A-Cath in place via a right internal jugular approach. Its tip is at the ca voatrial junction. There is been a midline sternotomy and before meals bypass. There is bibasilar airspace disease, worse on the left than the right. There are bilateral effusions worse on the left than the right. The heart is not enlarged. The overall appearance may have worsened slightly. IMPRESSION: SLIGHT WORSENING OF THE PATIENT'S BIBASILAR AIRSPACE DISEASE.
[2019-02-21] MEDS: METOPROLOL TARTRATE 25 MG TAB PO SCH ×2 (08:46→21:07)
--- NOTE | 2019-02-21 09:53 | CT ---
EXAMINATION TYPE: CT chest abdomen wo con DATE OF EXAM: 02/21/2019 COMPARISON: Previous study dated 05/28/2014. HISTORY: H/O residual CA CT DLP: 553.3 mGycm Automated exposure control for dose reduction was used. FINDINGS: There are large, bilateral pleural effusions with associated airspace disease either repres enting atelectasis or pneumonia. There is a right internal jugular catheter in place. Its tip is in t he right atrium. Pretracheal adenopathy. The largest lymph node measures 1.6 cm. The heart is enlarged. No definite pleural fluid is seen. There is been previous surgery on the distal esophagus. This may represent a gastric pull-through neal evie. Within the abdomen, there are several large gallstones within the gallbladder. Liver and spleen are o therwise unremarkable. Both adrenal glands appear normal. There is a 1.6 cm hyperdense exophytic lesion arising from the mid polar region of the right kidney. There is a 2.4 cm hypodense lesion arising from the upper pole of the right kidney. Both these lesion s are unchanged from previous. There are several cysts in the left kidney. The pancreas is poorly visualized. There is moderate atheromatous calcification of the visualized arterial tree. There is a small amount of ascites. Large and small bowel loops are of normal caliber There is degenerative disease, hypertrophic spondylosis and facet arthropathy within the spine. IMPRESSION: 1. LARGE, BILATERAL PLEURAL EFFUSIONS WITH ASSOCIATED AIRSPACE DISEASE. 2. PREVIOUS ESOPHAGEAL SURGERY. 3. MILD MEDIASTINAL ADENOPATHY. 4. CHOLELITHIASIS. 5. PROBABLE RENAL CYSTS. THIS COULD BE CONFIRMED WITH ULTRASOUND. 6. MILD ASCITES. 7. POOR VISUALIZATION OF PANCREAS. 8. DEGENERATIVE CHANGES WITHIN THE SPINE.
--- NOTE | 2019-02-21 10:56 | CONS ---
CONSULTATION Mr. Reeves is an 83-year-old male with known history of coronary artery disease, status post coronary artery bypass grafting, chronic persistent atrial fibrillation who presented to the emergency room with symptoms of progressive dyspnea and fever. He has been followed in [place] in the past, has a history of chronic persistent atrial fibrillation, history of coronary artery disease bypassed in 2011, has been stable. Had a prior history of congestive heart failure. He has been diagnosed about 18 months ago with an esophageal cancer with poorly differentiated adenocarcinoma and has been receiving chemotherapy. He had a prior episode of pleural effusion and had a thoracentesis, but no evidence of malignancy were noted. The patient is unaware of his ejection fraction. He has some peripheral edema. No dizziness. No palpitation. No syncope. No PND. No orthopnea. He was in atrial fibrillation with rapid ventricular response on presentation and was initially on Cardizem drip. He is off the Cardizem drip at this time. He was on norepinephrine that has been stopped since. His coronary risk factors are negative for smoking. He is nondiabetic. He has history of hyperlipidemia. MEDICATION: Pravastatin 20 mg daily, metoprolol tartrate 25 mg twice a day, Lasix 40 mg daily. REVIEW OF SYSTEMS: RESPIRATORY SYSTEM: He had dyspnea on exertion. No recent wheezing. He has some fever. GI system: He has the esophageal cancer. No recent GI bleeding. system: No dysuria or hematuria. NERVOUS SYSTEM: No stroke or seizure. PHYSICAL EXAMINATION: He is an 83-year-old male, alert, oriented, in no apparent distress. Blood pressure 117/60 with a heart rate in the 60s. HEAD: Normocephalic. Eyes: Sclerae anicteric. NECK: Good carotid upstroke. No bruit. LUNGS: With decreased air exchange in the bases bilaterally. No wheezes. HEART: Irregularly irregular S1, S2. No S3 with systolic ejection murmur, 2/6 heard at the base. No diastolic murmur. No rub. ABDOMEN: Soft and nontender. Positive bowel sounds. No megaly. EXTREMITIES: Chronic skin changes with 1 to 2+ edema bilaterally. LAB DATA: Lab data revealed a hemoglobin of 9.9, platelet count 165, BUN and creatinine 33 and 1.37. Plasma lactic acid level 2.2. Troponin less than 0.012. NT proBNP of 6440. BUN and creatinine today are 35 and 1.58. His EKG revealed atrial fibrillation with rare PVCs and nonspecific ST-T wave changes. His chest x-ray revealed bilateral effusion. He had a CT scan of the chest that revealed large bilateral pleural effusion with cholelithiasis and mild ascites. IMPRESSION: 1. Symptoms of progressive dyspnea with fever, could be related to an infectious process. Atrial fibrillation with rapid ventricular response, could be related to the respiratory distress. 2. Esophageal cancer, receiving chemotherapy. 3. History of chronic persistent atrial fibrillation. 4. History of coronary artery disease status post coronary artery bypass grafting. 5. Chronic kidney disease. 6. Anemia. RECOMMENDATIONS: Patient has not been anticoagulated according to the record because of the recurrent bleeding and the chronic anemia. From the cardiac standpoint, I will obtain echocardiogram with Doppler to evaluated left ventricular systolic function. He will continue on the beta nate as initiated. We will follow his ventricular response and adjust the treatment as needed and depending on his progress, further recommendations will be made. Thank you for this consult. We will follow with you. ZAN / ROSA MN: [id number] /
[2019-02-21 11:48] LABS: Glucose,Whole Blood 176 mg/dL (75-99)
--- NOTE | 2019-02-21 12:28 | P.HPIM ---
History of Present Illness On-call hospitalist covering for Dr. Wright This is a pleasant 83 years old male with past medical history of atrial fibrillation, COPD, diabetes mellitus, hypertension, esophageal cancer, chronic anemia, chronic bilateral pleural effusion status post previous thoracentesis, chronic kidney disease who presents because of fever. He checked his temperature was 100.1, associated with some dyspnea but he denies coughing or chest pain. On admission he was found to have A. fib with possible RVR, however her heart rate was noticed to be 60-80, patient was on Cardizem drip and his systolic blood pressure dropped to 60, he was given 2 L of normal saline, started on levophed and sent to the intensive care unit, patient is LEVOphed since 5:00 this morning In the emergency room patient has fever of 101.5, currently blood pressure 12 3/67, heart rate 54, saturating 98% on 3 L, hemoglobin 9.4, creatinine is 1.58.baseline is 1.2-1.6. Alk phos within normal limits, lactic acid 2.2 came back to normal. Clear urine analysis, cytology is negative for influenza. CAT scan of the chest showing large pleural effusion, mediastinal lymphadenopathy, 1.6 and 2.4 cm right kidney lesions, and change from previous exam, several cysts in the left kidney Review of Systems CONSTITUTIONAL: No fever, no malaise, no fatigue. HEENT: No recent visual problems or hearing problems. Denied any sore throat. CARDIOVASCULAR: No orthopnea, PND, no palpitations, no syncope. PULMONARY: No shortness of breath, no cough, no hemoptysis. GASTROINTESTINAL: No diarrhea, no nausea, no vomiting, no abdominal pain. Normoa ctive bowel sounds. NEUROLOGICAL: No headaches, no weakness, no numbness. HEMATOLOGICAL: Denies any bleeding or petechiae. GENITOURINARY: Denies any burning micturition, frequency, or urgency. MUSCULOSKELETAL/RHEUMATOLOGICAL: Denies any joint pain, swelling, or any muscle pain. ENDOCRINE: Denies any polyuria or polydipsia. Past Medical History Past Medical History: Atrial Fibrillation, Cancer, COPD, Diabetes Mellitus, Hypertension, Renal Disease Additional Past Medical History / Comment(s): Coronary artery disease and a pr evious CABG X4 2011 in [place], as esophageal cancer details discussed above, chronic anemia, chronic bilateral pleural effusion left more than right and the patient has had a previous thoracentesis indicating no evidence of any malignancy, chronic kidney disease, chronic atrial fibrillation, hypertension, diabetes mellitus History of Any Multi-Drug Resistant Organisms: None Reported Past Surgical History: Appendectomy, Coronary Bypass/CABG, Orthopedic Surgery Additional Past Surgical History / Comment(s): bilateral hip replacement and Left Knee replacement Past Anesthesia/Blood Transfusion Reactions: No Reported Reaction Smoking Status: Former smoker - Past Family History Brother(s) Family Medical History: Cancer, Myocardial Infarction (ID) Additional Family Medical History / Comment(s): "One of a heart attack at age of 45". "Another of a cancer, dont know what kind" Mother Additional Family Medical History / Comment(s): Leukemia Medications and Allergies Home Medications Medication Instructions Recorded Confirmed Type Paricalcitol 2 mcg PO MO 05/20/14 02/20/19 History RX: Metoprolol Tartrate 25 mg PO BID 05/20/14 02/20/19 History RX: Furosemide [Lasix] 40 mg PO DAILY 07/31/18 02/20/19 History RX: Iron Polysaccharide Complex 150 mg PO DAILY 07/31/18 02/20/19 History [Ferrex 150] RX: Lactobacillus Acidophilus 1 tab PO DAILY 07/31/18 02/20/19 History [Acidophilus] RX: Pravastatin Sodium [Pravachol] 20 mg PO HS 07/31/18 02/20/19 History RX: guaiFENesin [Mucinex] 600 mg PO BID 07/31/18 02/20/19 History RX: Cholecalciferol [Vitamin D3] 400 unit PO BID 12/29/18 02/20/19 History RX: Omeprazole 40 mg PO DAILY 12/29/18 02/20/19 History RX: Budesonide-Formot 160-4.5 Mcg 2 puff INHALATION RT-BID #1 puff 12/31/18 02/20/19 Rx [Symbicort 160-4.5 Mcg Inhaler] RX: Ipratropium-Albuterol Nebulize 3 ml INHALATION RT-QID #120 12/31/18 02/20/19 Rx [Duoneb 0.5 mg-3 mg/3 ml Soln] ampul.neb Allergies Allergy/AdvReac Type Severity Reaction Status Date / Time No Known Allergies Allergy Verified 02/20/19 20:59 Physical Exam Vitals: Vital Signs Temp Pulse Resp BP Pulse Ox 02/21/19 12:00 97.3 F L 54 L 20 123/67 98 02/21/19 11:47 68 02/21/19 11:00 54 L 15 126/65 93 L 02/21/19 10:00 70 19 116/70 91 L 02/21/19 09:00 71 18 118/88 95 02/21/19 08:00 97.5 F L 72 18 124/73 96 02/21/19 07:41 66 02/21/19 07:33 64 02/21/19 07:15 74 18 117/66 99 02/21/19 07:00 66 19 108/59 97 02/21/19 06:45 76 16 100/45 93 L 02/21/19 06:30 67 7 L 121/68 94 L 02/21/19 06:15 68 19 125/69 97 02/21/19 06:00 78 15 123/67 02/21/19 05:45 81 16 120/63 98 02/21/19 05:30 81 20 122/67 98 02/21/19 05:15 80 18 129/70 98 02/21/19 05:00 85 17 119/56 92 L 02/21/19 04:45 80 19 117/54 98 02/21/19 04:30 70 17 127/68 99 02/21/19 04:15 80 15 116/70 98 02/21/19 04:00 98.1 F 73 21 119/61 98 02/21/19 03:45 87 33 H 125/64 97 02/21/19 03:35 94 L 02/21/19 03:30 71 35 H 116/62 94 L 02/21/19 03:15 67 19 113/61 99 02/21/19 03:00 71 39 H 122/67 97 02/21/19 02:48 97.7 F 90 L 02/21/19 02:45 80 32 H 119/66 95 02/21/19 02:40 76 34 H 119/66 95 02/21/19 02:30 76 23 113/66 97 02/21/19 02:20 71 23 113/66 97 02/21/19 02:10 72 25 H 111/64 98 02/21/19 02:00 82 16 113/61 94 L 02/21/19 01:50 79 27 H 113/61 94 L 02/21/19 01:40 72 21 104/63 95 02/21/19 01:30 74 20 104/55 94 L 02/21/19 01:20 71 18 104/55 94 L 02/21/19 01:16 93 L 02/21/19 01:10 64 20 106/55 87 L 02/21/19 01:00 97.7 F 73 18 89/47 92 L 02/21/19 00:50 73 28 H 89/47 74 L 02/21/19 00:48 75 22 02/21/19 00:37 70 18 91/46 95 02/21/19 00:10 98.5 F 73 20 87/42 97 02/21/19 00:07 70 18 81/38 97 02/20/19 22:02 76 02/20/19 22:00 70 24 85/36 96 02/20/19 21:54 69 02/20/19 21:53 70 20 90/53 94 L 02/20/19 21:36 111 H 20 110/82 97 02/20/19 20:54 26 H 02/20/19 20:34 101.5 F H 122 H 20 122/58 85 L Intake and Output 02/20/19 02/21/19 02/21/19 22:59 06:59 14:59 Intake Total 913.651 350 Output Total 125 225 Balance 788.651 125 Intake: IV 830 350 Piperacillin-Tazobactam 3 100 .375 gm In Sodium Chloride 0.9% 100 ml @ 25 mls/hr IVPB Q8HR [facility] Rx# :[id number] Sodium Chloride 0.9% 1, 830 000 ml @ 130 mls/hr IV . Q7H42M [facility] Rx#:[id number] Sodium Chloride 0.9% 1, 250 000 ml @ 50 mls/hr IV . Q20H [facility] Rx#:[id number] Intake, IV Titration 83.651 Amount Norepinephrine 4 mg In 83.651 Sodium Chloride 0.9% 250 ml @ 0.05 MCG/KG/MIN 15. 813 mls/hr IV .Q16H4M [facility] Rx#:[id number] Output: Urine 125 225 Other: # Voids 0 # Bowel Movements 1 Weight 83.007 kg GENERAL: The patient is alert and oriented x3, not in any acute distress. Thin built, generally weak HEENT: Pupils are round and equally reacting to light. EOMI. No scleral icterus. No conjunctival pallor. Normocephalic, atraumatic. No pharyngeal erythema. No thyromegaly. CARDIOVASCULAR: S1 and S2 present. No murmurs, rubs, or gallops. -PULMONARY: Chest is clear to auscultation, no wheezing or crackles. Decreased breath sounds on both sides ABDOMEN: Soft, nontender, nondistended, normoactive bowel sounds. No palpable organomegaly. MUSCULOSKELETAL: No joint swelling or deformity. EXTREMITIES: No cyanosis, clubbing, or pedal edema. NEUROLOGICAL: Gross neurological examination did not reveal any focal deficits. SKIN: No rashes. No petechiae Results CBC & Chem 7: 02/21/19 05:19 02/21/19 05:19 Labs: Abnormal Lab Results - Last 24 Hours (Table) 02/20/19 02/20/19 02/20/19 Range/Units 20:55 20:55 20:55 RBC 3.30 L (4.30-5.90) m/uL Hgb 9.9 L D (13.0-17.5) gm/dL Hct 32.2 L (39.0-53.0) % MCV (80.0-100.0) fL MCHC 30.9 L (31.0-37.0) g/dL RDW 16.8 H (11.5-15.5) % Plt Count (150-450) k/uL Lymphocytes # 0.4 L (1.0-4.8) k/uL BUN 33 H (9-20) mg/dL Creatinine 1.37 H (0.66-1.25) mg/dL Glucose 125 H (74-99) mg/dL POC Glucose (mg/dL) (75-99) mg/dL Plasma Lactic Acid Rory 2.2 H* (0.7-2.0) mmol/L ALT 16 L (21-72) U/L Alkaline Phosphatase 164 H (38-126) U/L Creatine Kinase 21 L (55-170) U/L 02/21/19 02/21/19 02/21/19 Range/Units 00:47 05:19 05:19 RBC 2.96 L (4.30-5.90) m/uL Hgb 9.4 L (13.0-17.5) gm/dL Hct 29.9 L (39.0-53.0) % MCV 101.0 H (80.0-100.0) fL MCHC (31.0-37.0) g/dL RDW 16.9 H (11.5-15.5) % Plt Count 117 L (150-450) k/uL Lymphocytes # 0.2 L (1.0-4.8) k/uL BUN 35 H (9-20) mg/dL Creatinine 1.58 H (0.66-1.25) mg/dL Glucose 167 H (74-99) mg/dL POC Glucose (mg/dL) 131 H (75-99) mg/dL Plasma Lactic Acid Rory (0.7-2.0) mmol/L ALT (21-72) U/L Alkaline Phosphatase (38-126) U/L Creatine Kinase (55-170) U/L 02/21/19 02/21/19 Range/Units 06:50 11:37 RBC (4.30-5.90) m/uL Hgb (13.0-17.5) gm/dL Hct (39.0-53.0) % MCV (80.0-100.0) fL MCHC (31.0-37.0) g/dL RDW (11.5-15.5) % Plt Count (150-450) k/uL Lymphocytes # (1.0-4.8) k/uL BUN (9-20) mg/dL Creatinine (0.66-1.25) mg/dL Glucose (74-99) mg/dL POC Glucose (mg/dL) 161 H 176 H (75-99) mg/dL Plasma Lactic Acid Rory (0.7-2.0) mmol/L ALT (21-72) U/L Alkaline Phosphatase (38-126) U/L Creatine Kinase (55-170) U/L Thrombosis Risk Factor Assmnt - Choose All That Apply Any of the Below Risk Factors Present?: Yes Each Factor Represents 1 point: Abnormal pulmonary function (COPD), Medical pt on bed rest, Sepsis (< 1month) Each Risk Factor Represents 3 Points: Age 75 years or older Thrombosis Risk Factor Assessment Total Risk Factor Score: 6 Thrombosis Risk Factor Assessment Level: High Risk Assessment and Plan Assessment: Acute dyspnea, could be related to his pleural effusion. Pneumonia is less likely Esophageal cancer with adenocarcinoma Chronic atrial fibrillation Left renal cyst and to right kidney lesions COPD, not inexorably she Diabetes mellitus Hypertension Chronic anemia Chronic kidney disease Elevated lactic acid came back to normal Plan: This is a pleasant 83 years old male who presents with respiratory distress, he has pleural effusion. Pulmonary/critical care input is appreciated and follow the recommendation. Patient might need thoracocentesis. Continue with antibiotics. Continue with gentle hydration Labs and medication were reviewed.. Continue same treatment. Continue with symptomatic treatment. Resume home medication. Monitor lytes and vitals. DVT and GI prophylaxis. Further recommendations of the clinical course of the patient DVT prophylaxis: Subcu heparin GI Prophylaxis: Pepcid PT/OT: Pending Prognosis is guarded
[2019-02-21] MEDS: NOREPINEPHRINE 4 MG in SODIUM CHLORIDE 0.9% 250 ML IV SCH (14:29)
[2019-02-21] MEDS ORDERED: FAMOTIDINE 20 MG/2 ML VIAL IV SCH ×2 (21:00)
[2019-02-21] MEDS: DILTIAZEM 125 MG in SODIUM CHLORIDE 0.9% 100 ML IV SCH (21:03)
[2019-02-21] MEDS: HEPARIN SODIUM,PORCINE 5,000 UNIT/ML 1 ML VIAL SQ SCH (21:11)
[2019-02-21] MEDS ORDERED: LEVOFLOXACIN 750MG-D5W PMX 750 MG in DEXTROSE/WATER 1 150ML.BAG IVPB SCH (22:45)
[2019-02-22] MEDS: PIPERACILLIN-TAZOBACTAM 3.375 GM in SODIUM CHLORIDE 0.9% 100 ML IVPB SCH ×4 (00:55→23:47)
[2019-02-22 05:07] LABS: Anisocytosis Slight; Basophils % (A) 0 %; Eosinophils % (A) 0 %; HGB 8.8 gm/dL (13.0-17.5); Hypochromasia Marked; Lymphocytes # (A) 0.2 k/uL (1.0-4.8); Lymphocytes % (A) 5 %; MCH 30.6 pg (25.0-35.0); MCHC 30.4 g/dL (31.0-37.0); MCV 100.6 fL (80.0-100.0); Macrocytosis Slight; Mean Platelet Volume 6.6; Monocytes # (A) 0.1 k/uL (0-1.0); Monocytes % (A) 2 %; Neutrophils # (A) 3.1 k/uL (1.3-7.7); Neutrophils % (A) 92 %; Platelet Count 126 k/uL (150-450); RBC 2.89 m/uL (4.30-5.90); RDW 16.3 % (11.5-15.5); WBC 3.4 k/uL (3.8-10.6)
[2019-02-22 05:13] LABS: Calcium 9.6 mg/dL (8.4-10.2); Potassium 4.2 mmol/L (3.5-5.1)
[2019-02-22] MEDS: SODIUM CHLORIDE 0.9% 1,000 ML IV SCH ×3 (06:33→23:47)
[2019-02-22] MEDS: HYDROCORTISONE SUCCINATE 100 MG/2 ML VIAL IV SCH ×2 (06:33→21:01)
--- NOTE | 2019-02-22 07:23 | XR ---
EXAMINATION TYPE: XR chest 1V portable DATE OF EXAM: 02/22/2019 COMPARISON: 02/21/2019 HISTORY: Pleural effusion follow-up. Shortness of breath. TECHNIQUE: Single frontal view of the chest is obtained. FINDINGS: Similar-appearing small layering pleural effusions and associated bibasilar airspace dise ase. Right-sided Mediport is unchanged. Post CABG changes the chest are noted. Mild interstitial connor a is most pronounced centrally. Generalized osseous demineralization is seen. Surgical changes of the left neck soft tissues. No sizable pneumothorax. IMPRESSION: Similar-appearing sequela of fluid overload, likely cardiogenic with associated bibasila r airspace disease.
[2019-02-22] MEDS: METOPROLOL TARTRATE 25 MG TAB PO SCH ×2 (08:23→21:01)
[2019-02-22] MEDS: HEPARIN SODIUM,PORCINE 5,000 UNIT/ML 1 ML VIAL SQ SCH ×2 (08:23→21:01)
[2019-02-22] MEDS ORDERED: FUROSEMIDE 10 MG/ML 4 ML VIAL IV STA (08:27)
[2019-02-22] MEDS: IPRATROPIUM-ALBUTEROL 3 ML NEB INHALATION SCH ×4 (08:36→21:10)
[2019-02-22] MEDS ORDERED: FUROSEMIDE 20 MG TAB PO STA (09:23)
--- NOTE | 2019-02-22 10:28 | ECHOF ---
Referral Reason:afib MEASUREMENTS -------- HEIGHT: 182.9 cm WEIGHT: 88.0 kg BP: 132/73 RVIDd: 4.0 cm (< 3.3) IVSd: 1.4 cm (0.6 - 1.1) LVIDd: 4.0 cm (3.9 - 5.3) LVPWd: 1.0 cm (0.6 - 1.1) IVSs: 1.6 cm LVIDs: 3.1 cm LVPWs: 1.6 cm LA Diam: 5.6 cm (2.7 - 3.8) LAESV Index (A-L): 68.39 ml/m Ao Diam: 3.8 cm (2.0 - 3.7) AV Cusp: 2.3 cm (1.5 - 2.6) LA Diam: 4.7 cm (2.7 - 3.8) MV EXCURSION: 21.866 mm (> 18.000) MV EF SLOPE: 75 mm/s (70 - 150) EPSS: 0.4 cm RAP: 5.00 mmHg RVSP: 84.62 mmHg FINDINGS -------- Atrial fibrillation. This was a technically good study. The left ventricular size is normal. There is mild concentric left ventricular hypertrophy. Overa ll left ventricular systolic function is low-normal with, an EF between 50 - 55 %. Left ventricular fillimg pressure cannot be estimated due to Atrial fibrillation. The right ventricle is moderate to severely enlarged. LA is severely dilated >40 ml/m2 The right atrial size is normal. There is mild aortic valve sclerosis. There is no evidence of aortic regurgitation. Mild mitral annular calcification present. Mild mitral regurgitation is present. Mild tricuspid regurgitation present. There is severe pulmonary hypertension. The right ventricul ar systolic pressure, as measured by Doppler, is 84.62mmHg. Moderate pulmonic regurgitation. The aortic root size is normal. There is no pericardial effusion. Moderate Pleural Effusion. CONCLUSIONS -------- 1. Atrial fibrillation. 2. This was a technically good study. 3. The left ventricular size is normal. 4. There is mild concentric left ventricular hypertrophy. 5. Overall left ventricular systolic function is low-normal with, an EF between 50 - 55 %. 6. Left ventricular fillimg pressure cannot be estimated due to Atrial fibrillation. 7. The right ventricle is moderate to severely enlarged. 8. LA is severely dilated >40 ml/m2 9. There is mild aortic valve sclerosis. 10. Mild mitral annular calcification present. 11. Mild mitral regurgitation is present. 12. Mild tricuspid regurgitation present. 13. There is severe pulmonary hypertension. 14. The right ventricular systolic pressure, as measured by Doppler, is 84.62mmHg. 15. Moderate pulmonic regurgitation. 16. The aortic root size is normal. 17. There is no pericardial effusion. 18. Moderate Pleural Effusion. BOTTLING MACHINE OPERATOR: Deepthi Smith RDCS
--- NOTE | 2019-02-22 11:04 | PN ---
PROGRESS NOTE This is an elderly 83-year-old gentleman who had the recent health care in [place]. He has developed esophageal cancer, was on chemotherapy. He came into the hospital mainly with atrial fib, rapid ventricular rate. He is known to have a chronic AFIB and this is not a new diagnosis for him, but the rate being faster was new. He is resting comfortably. The rate control has improved. Heart rate is in the 80s, remains in atrial fibrillation. He is on beta blockers at this time. Tolerating this very well. He is also on a beta nate, metoprolol tartrate 25 mg b.i.d., heart rate is in the 80s, hemodynamically stable. He has been placed on 5000 units of subcu heparin. Long- term anticoagulation is not a good option for this patient who is anemic and has required blood transfusions and hemoglobin is in the range of 8.8 at this time. We will leave him on Lasix 20 mg b.i.d., increase his IV fluids to 75 mg daily. Echo revealed preserved systolic function with elevated PA pressures. Overall prognosis remains guarded. He can be moved to the medical floor with telemetry. MMGREGL / ROSA MN: [id number] /
--- NOTE | 2019-02-22 11:25 | P.PN ---
Subjective Progress Note Date: 02/22/19 Principal diagnosis: Acute on chronic diastolic congestive heart failure 83-year-old male patient came into the emergency department which shortness of breath and generalized weakness. Note that the patient in the emergency was found to be short of breath. He was tachycardic and he was in atrial fibrillation which is a chronic problem that he was developing a rate of 130. N o fever. No hemoptysis. No pleurisy. The patient came in to the intensive care unit after he became hypotensive. Apparently was given Cardizem drip and subsequently became hypotensive. The Cardizem drip was discontinued and he was placed on norepinephrine infusion which was running at 5 g per minute and ultimately the norepinephrine infusion was discontinued. Current blood pressure is is 117/74 with a heart rate of 78. His pulse is 98% 4l of 2 by nasal cannula. He was given a total of 2 L of IV fluids. He is hemodynamically stable. He is producing good urine output.This patient is known to have multiple medical problems including coronary artery disease, previous coronary artery bypass surgery, diabetes mellitus, hypertension, atrial fibrillation and history of esophageal cancer and chronic stage III kidney disease . 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 He had a follow up PET scan on 04/24/2018 which revealed uptake at distal esophagus,stable midly prominent mediastinal nodes and small bilateral pleural effusion. He also had a repeat CT scan of chest/abdomen/pelvis on 06/18/2018,stable finding compared to prior PET scan.He had a repeat EGD on 06/10/2018 biopsy revealed high grade dysplasia and i ntestinal metaplasia,malignancy could not be excluded. In regard to his anemia,he has been requiring intermittent blood transfusion,it has become almost every 3 weeks since May/2018 despite procrit supplement. The patient was not felt to be a good candidate for esophageal resection. His last EGD and biopsy did not show any invasive malignancy. However local recurrence cannot be completely ruled out. The patient is still being followed up with oncology. She also has a left-sided pleural effusion with a total of 1.3 L of fluid was aspirated and the fluid cytology came back negative for malignancy. Subsequently, he came into the hospital back in December 2018 for pneumonia, treated and discharged home. Patient was reevaluated today on 02/22/2019, feeling better, remains in the ICU, responding well to treatment of his atrial fibrillation/RVR and treatment of his acute on chronic congestive heart failure chest x-ray continues to show small bilateral pleural effusions, left more so than right. Patient is hemodynamically stable, remains on Lasix. Remains on hydrocortisone which I will cut down and switched the patient to oral prednisone. Remains on antibiotics empirically, and he remains on beta blockers for his atrial fibrillation. Overall the patient is better, hence I plan to transfer the patient out of the ICU to a monitor bed on the cardiac floor. WBC count is 3.4 hemoglobin is 8.8 lites are normal BUN is 46 creatinine is 1.89. Patient will receive a dose of Lasix today. Urine output seems to be a bit marginal. Objective - Vital Signs Vital signs: Vital Signs Temp 97.7 F 02/22/19 08:00 Pulse 81 02/22/19 10:00 Resp 20 02/22/19 10:00 BP 111/51 02/22/19 10:00 Pulse Ox 100 02/22/19 09:00 Intake & Output 02/21/19 02/22/19 02/22/19 18:59 06:59 18:59 Intake Total 750 950 300 Output Total 425 350 150 Balance 325 600 150 Weight 88.3 kg Intake: IV 750 700 150 Levofloxacin 750Mg-D5w 150 Pmx 750 mg In Dextrose/ Water 1 150ml.bag @ 100 mls/hr IVPB [facility] Rx#: [id number] Piperacillin-Tazobactam 3 200 .375 gm In Sodium Chloride 0.9% 100 ml @ 25 mls/hr IVPB Q8HR [facility] Rx# :[id number] Sodium Chloride 0.9% 1, 550 550 150 000 ml @ 50 mls/hr IV . Q20H [facility] Rx#:[id number] Intake, IV Titration 150 Amount Sodium Chloride 0.9% 1, 150 000 ml @ 75 mls/hr IV . [id number] [facility] Rx#:[id number] Oral 250 Output: Urine 425 350 150 Other: # Voids 0 0 # Bowel Movements 1 1 - Exam Physical Exam: Revealed a 83-year-old white male in no distress. Head: Atraumatic, normocephalic. HEENT: PERRLA, EOMI, no icterus. [Neck is supple.] [No neck masses.] [No thyromegaly.] [No JVD.] Chest: Symmetrical chest expansion, diminished breath sounds and crackles at the bases especially at the left base..] Cardiac Exam: Irregular irregular rhythm. [Normal S1 and S2, no S3 gallop, no murmur.] Abdomen: [Soft, nontender, no megaly, no rebound, no guarding, normal bowel sounds.] Extremities: [No clubbing, no edema, no cyanosis. Good pulses bilaterally.] Neurological Exam: [No focal neurologic deficit.] Alert and oriented 3. Psychiatric: Normal mood, affect and normal mental status examination. Skin: No rashes. Musculoskeletal: Normal range of motion, no deformities - Labs CBC & Chem 7: 02/22/19 04:07 02/22/19 04:11 Labs: Abnormal Lab Results - Last 24 Hours (Table) 02/21/19 02/22/19 02/22/19 Range/Units 11:37 04:07 04:11 WBC 3.4 L (3.8-10.6) k/uL RBC 2.89 L (4.30-5.90) m/uL Hgb 8.8 L (13.0-17.5) gm/dL Hct 29.0 L (39.0-53.0) % MCV 100.6 H (80.0-100.0) fL MCHC 30.4 L (31.0-37.0) g/dL RDW 16.3 H (11.5-15.5) % Plt Count 126 L (150-450) k/uL Lymphocytes # 0.2 L (1.0-4.8) k/uL BUN 46 H (9-20) mg/dL Creatinine 1.89 H (0.66-1.25) mg/dL Glucose 135 H (74-99) mg/dL POC Glucose (mg/dL) 176 H (75-99) mg/dL Microbiology - Last 24 Hours (Table) 02/21/19 12:20 Gram Stain - Preliminary Sputum Sputum Culture - Preliminary 02/20/19 20:55 Blood Culture - Preliminary Blood No Growth after 24 hours Assessment and Plan Assessment: Impression: Acute on chronic congestive heart failure, diastolic in nature, and most likely related to his acute presentation of atrial fibrillation with RVR. 2 history of esophageal cancer treated with systemic chemotherapy using carboplatin and Taxol along with radiation therapy 3 chronic atrial fibrillation 4 chronic anemia, of chronic disease. 5 type 2 diabetes without complications 6 acute on chronic kidney disease stage III. 7 bilateral pleural effusions, previous left-sided thoracentesis, fluid was negative for malignancy. Recommendation: Continue present treatment plan including diuretics, continue beta blockers, patient is presently off Cardizem, he is off norepinephrine, and I will transfer the patient to a cardiac floor today, we will discontinue hydrocortisone and since the patient to prednisone. We'll continue to follow. Prognosis in the long run remains poor and guarded. Time with Patient: Less than 30
--- NOTE | 2019-02-22 12:21 | P.PN ---
Subjective Patient stabilized and moved from the intensive care unit to [facility]. Patient states she's feels improved. Found on exam that he had some reddish quadrant tenderness patient says it is her understanding more physician's instructed that the pain becomes worse we can refer him to a surgeon. Patient had evaluation by cardiology and pulmonology Objective - Vital Signs Vital signs: Vital Signs Temp 97.7 F 02/22/19 08:00 Pulse 81 02/22/19 10:00 Resp 20 02/22/19 10:00 BP 111/51 02/22/19 10:00 Pulse Ox 100 02/22/19 09:00 Intake & Output 02/21/19 02/22/19 02/22/19 18:59 06:59 18:59 Intake Total 750 950 300 Output Total 425 350 150 Balance 325 600 150 Weight 88.3 kg Intake: IV 750 700 150 Levofloxacin 750Mg-D5w 150 Pmx 750 mg In Dextrose/ Water 1 150ml.bag @ 100 mls/hr IVPB ONCE [facility] Rx#: [id number] Piperacillin-Tazobactam 3 200 .375 gm In Sodium Chloride 0.9% 100 ml @ 25 mls/hr IVPB Q8HR [facility] Rx# :[id number] Sodium Chloride 0.9% 1, 550 550 150 000 ml @ 50 mls/hr IV . Q20H [facility] Rx#:[id number] Intake, IV Titration 150 Amount Sodium Chloride 0.9% 1, 150 000 ml @ 75 mls/hr IV . [id number] [facility] Rx#:[id number] Oral 250 Output: Urine 425 350 150 Other: # Voids 0 0 # Bowel Movements 1 1 - Constitutional General appearance: Present: mild distress - EENT Eyes: Present: PERRLA Ears: bilateral: normal - Neck Neck: Present: normal ROM - Respiratory Respiratory: negative: diminished, rales - Cardiovascular Rhythm: irregularly irregular - Gastrointestinal General gastrointestinal: Present: soft Localized gastrointestinal: tender: RUQ - Integumentary Integumentary: Present: normal - Neurologic Neurologic: Present: CNII-XII intact - Psychiatric Psychiatric: Present: A&O x's 3 - Labs CBC & Chem 7: 02/22/19 04:07 02/22/19 04:11 Labs: Abnormal Lab Results - Last 24 Hours (Table) 02/21/19 02/22/19 02/22/19 Range/Units 05:19 04:07 04:11 WBC 3.4 L (3.8-10.6) k/uL RBC 2.89 L (4.30-5.90) m/uL Hgb 8.8 L (13.0-17.5) gm/dL Hct 29.0 L (39.0-53.0) % MCV 100.6 H (80.0-100.0) fL MCHC 30.4 L (31.0-37.0) g/dL RDW 16.3 H (11.5-15.5) % Plt Count 126 L (150-450) k/uL Lymphocytes # 0.2 L (1.0-4.8) k/uL BUN 46 H (9-20) mg/dL Creatinine 1.89 H (0.66-1.25) mg/dL Glucose 135 H (74-99) mg/dL Procalcitonin 2.82 H (0.02-0.09) ng/mL Microbiology - Last 24 Hours (Table) 02/21/19 12:20 Gram Stain - Preliminary Sputum Sputum Culture - Preliminary 02/20/19 20:55 Blood Culture - Preliminary Blood No Growth after 24 hours - Imaging and Cardiology Chest x-ray: report reviewed CT scan - abdomen: report reviewed CT scan - chest: report reviewed (2-D echo ejection fraction 50-55% diastolic dysfunction with of pulmonary hypertension) Assessment and Plan Plan: Assessment Acute dyspnea related to on pleural effusion and pulmonary hypertension with diastolic dysfunction Esophageal cancer with adenocarcinoma Chronic persistent atrial fibrillation Left renal cyst right kidney COPD stable Diabetes type 2 Hypertension Chronic anemia of chronic disease Cholelithiasis Chronic kidney disease stage III GFR 32 Congestive heart failure diastolic dysfunction ejection fraction 50-55% Plan Continue consultation with pulmonology and cardiology last x-ray shows fluid overload
[2019-02-22] MEDS: FUROSEMIDE 20 MG TAB PO SCH (15:25)
[2019-02-22] MEDS: NOREPINEPHRINE 4 MG in SODIUM CHLORIDE 0.9% 250 ML IV SCH (16:45)
[2019-02-22] MEDS: FAMOTIDINE 20 MG TAB PO SCH (21:01)
[2019-02-23 07:35] LABS: Calcium 9.9 mg/dL (8.4-10.2); Potassium 5.2 mmol/L (3.5-5.1)
[2019-02-23 07:45] LABS: Anisocytosis Slight; Basophils % (A) 1 %; Eosinophils % (A) 0 %; HCT 28.9 % (39.0-53.0); HGB 8.4 gm/dL (13.0-17.5); Hypochromasia Marked; Lymphocytes # (A) 0.2 k/uL (1.0-4.8); Lymphocytes % (A) 5 %; MCH 29.4 pg (25.0-35.0); MCHC 29.2 g/dL (31.0-37.0); Macrocytosis Slight; Mean Platelet Volume 7.9; Monocytes # (A) 0.2 k/uL (0-1.0); Monocytes % (A) 5 %; Neutrophils # (A) 3.2 k/uL (1.3-7.7); Neutrophils % (A) 88 %; Platelet Count 116 k/uL (150-450); RBC 2.86 m/uL (4.30-5.90); RDW 17.2 % (11.5-15.5); WBC 3.6 k/uL (3.8-10.6)
[2019-02-23] MEDS: IPRATROPIUM-ALBUTEROL 3 ML NEB INHALATION SCH ×4 (08:51→21:06)
[2019-02-23] MEDS: HEPARIN SODIUM,PORCINE 5,000 UNIT/ML 1 ML VIAL SQ SCH ×2 (09:05→21:06)
[2019-02-23] MEDS: PIPERACILLIN-TAZOBACTAM 3.375 GM in SODIUM CHLORIDE 0.9% 100 ML IVPB SCH ×3 (09:06→23:29)
[2019-02-23] MEDS: HYDROCORTISONE SUCCINATE 100 MG/2 ML VIAL IV SCH (09:06)
[2019-02-23] MEDS: FUROSEMIDE 20 MG TAB PO SCH ×2 (09:08→15:19)
[2019-02-23] MEDS: METOPROLOL TARTRATE 25 MG TAB PO SCH ×2 (09:10→21:05)
--- NOTE | 2019-02-23 11:32 | XR ---
EXAMINATION TYPE: XR chest 1V portable DATE OF EXAM: 02/23/2019 COMPARISON: 02/22/2019 INDICATION: Bilateral pleural effusions TECHNIQUE: Single frontal view of the chest is obtained. FINDINGS: The heart size is normal. The pulmonary vasculature is normal. There is a moderate size left pleural effusion. A small right pleural effusion is present. These are stable from comparison Right central venous catheter port is present with the tip in the superior vena cava region. Sternoto my wires from prior CABG is evident. 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 IMPRESSION: 1. Small right and moderate left pleural effusions, stable from comparison
--- NOTE | 2019-02-23 12:29 | P.PN ---
Subjective Patient sitting in chair at bedside. Patient states he feels improved patient developed positive occult blood in stool surgical consult Objective - Vital Signs Vital signs: Vital Signs Temp 97.4 F L 02/23/19 08:16 Pulse 88 02/23/19 11:58 Resp 20 02/23/19 08:16 BP 128/69 02/23/19 08:16 Pulse Ox 97 02/23/19 08:16 Intake & Output 02/22/19 02/23/19 02/23/19 18:59 06:59 18:59 Intake Total 300 1300 Output Total 400 300 Balance -100 1300 -300 Intake: IV 150 Sodium Chloride 0.9% 1, 150 000 ml @ 50 mls/hr IV . Q20H [facility] Rx#:[id number] Intake, IV Titration 150 1000 Amount Piperacillin-Tazobactam 3 100 .375 gm In Sodium Chloride 0.9% 100 ml @ 25 mls/hr IVPB Q8HR [facility] Rx# :[id number] Sodium Chloride 0.9% 1, 150 900 000 ml @ 75 mls/hr IV . [id number] [facility] Rx#:[id number] Oral 300 Output: Urine 400 300 Other: # Voids 0 2 1 # Bowel Movements 1 1 - Constitutional General appearance: Present: mild distress - EENT Eyes: Present: PERRLA Ears: bilateral: normal - Neck Neck: Present: normal ROM - Respiratory Respiratory: bilateral: diminished, rhonchi, wheezing - Cardiovascular Rhythm: irregularly irregular - Gastrointestinal General gastrointestinal: Present: soft - Integumentary Integumentary: Present: normal - Neurologic Neurologic: Present: CNII-XII intact - Musculoskeletal Musculoskeletal: Present: generalized weakness - Psychiatric Psychiatric: Present: A&O x's 3, appropriate affect, intact judgment & insight - Labs CBC & Chem 7: 02/23/19 06:34 02/23/19 06:34 Labs: Abnormal Lab Results - Last 24 Hours (Table) 02/23/19 02/23/19 Range/Units 06:34 06:34 WBC 3.6 L (3.8-10.6) k/uL RBC 2.86 L (4.30-5.90) m/uL Hgb 8.4 L (13.0-17.5) gm/dL Hct 28.9 L (39.0-53.0) % MCV 101.0 H (80.0-100.0) fL MCHC 29.2 L (31.0-37.0) g/dL RDW 17.2 H (11.5-15.5) % Plt Count 116 L (150-450) k/uL Lymphocytes # 0.2 L (1.0-4.8) k/uL Potassium 5.2 H (3.5-5.1) mmol/L Chloride 110 H (98-107) mmol/L BUN 53 H (9-20) mg/dL Creatinine 1.91 H (0.66-1.25) mg/dL Glucose 139 H (74-99) mg/dL Microbiology - Last 24 Hours (Table) 02/21/19 12:20 Gram Stain - Final Sputum Sputum Culture - Final 02/20/19 20:55 Blood Culture - Preliminary Blood No Growth after 48 hours Assessment and Plan Plan: Assessment Acute dyspnea related to pleural effusion pneumonia community acquired Esophageal cancer with adenocarcinoma Positive occult blood in stool left renal cysts History of COPD exacerbation Diabetes type 2 Hypertension Chronic anemia chronic disease Cholelithiasis Pulmonary hypertension with pleural effusion chronic kidney disease stage III GFR 32 Congestive heart failure diastolic dysfunction acute on chronic Plan Surgical consultation regarding positive occult blood in stool Continue Zosyn Continue consultation with cardiology and pulmonology
--- NOTE | 2019-02-23 12:56 | P.PN ---
Subjective Progress Note Date: 02/23/19 Principal diagnosis: Acute on chronic diastolic congestive heart failure 83-year-old male patient came into the emergency department which shortness of breath and generalized weakness. Note that the patient in the emergency was found to be short of breath. He was tachycardic and he was in atrial fibrillation which is a chronic problem that he was developing a rate of 130. N o fever. No hemoptysis. No pleurisy. The patient came in to the intensive care unit after he became hypotensive. Apparently was given Cardizem drip and subsequently became hypotensive. The Cardizem drip was discontinued and he was placed on norepinephrine infusion which was running at 5 g per minute and ultimately the norepinephrine infusion was discontinued. Current blood pressure is is 117/74 with a heart rate of 78. His pulse is 98% 4l of 2 by nasal cannula. He was given a total of 2 L of IV fluids. He is hemodynamically stable. He is producing good urine output.This patient is known to have multiple medical problems including coronary artery disease, previous coronary artery bypass surgery, diabetes mellitus, hypertension, atrial fibrillation and history of esophageal cancer and chronic stage III kidney disease . 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 He had a follow up PET scan on 04/24/2018 which revealed uptake at distal esophagus,stable midly prominent mediastinal nodes and small bilateral pleural effusion. He also had a repeat CT scan of chest/abdomen/pelvis on 06/18/2018,stable finding compared to prior PET scan.He had a repeat EGD on 06/10/2018 biopsy revealed high grade dysplasia and i ntestinal metaplasia,malignancy could not be excluded. In regard to his anemia,he has been requiring intermittent blood transfusion,it has become almost every 3 weeks since May/2018 despite procrit supplement. The patient was not felt to be a good candidate for esophageal resection. His last EGD and biopsy did not show any invasive malignancy. However local recurrence cannot be completely ruled out. The patient is still being followed up with oncology. She also has a left-sided pleural effusion with a total of 1.3 L of fluid was aspirated and the fluid cytology came back negative for malignancy. Subsequently, he came into the hospital back in December 2018 for pneumonia, treated and discharged home. Patient was reevaluated today on 02/22/2019, feeling better, remains in the ICU, responding well to treatment of his atrial fibrillation/RVR and treatment of his acute on chronic congestive heart failure chest x-ray continues to show small bilateral pleural effusions, left more so than right. Patient is hemodynamically stable, remains on Lasix. Remains on hydrocortisone which I will cut down and switched the patient to oral prednisone. Remains on antibiotics empirically, and he remains on beta blockers for his atrial fibrillation. Overall the patient is better, hence I plan to transfer the patient out of the ICU to a monitor bed on the cardiac floor. WBC count is 3.4 hemoglobin is 8.8 lites are normal BUN is 46 creatinine is 1.89. Patient will receive a dose of Lasix today. Urine output seems to be a bit marginal. The patient was seen again today on 02/23/2019 in follow-up on the regular medical floor. He is currently sitting up in a chair at the bedside. Awake and alert in no acute distress. He is maintaining O2 saturations up to 100% on 3 L/m per nasal cannula. She's been afebrile. Hemodynamically stable. Chest x- ray is stable with a small right and moderate left pleural effusion. Currently on Zosyn, bronchodilators, oral diuretics. White count 3.6. Hemoglobin 8.4. Sodium 145. Potassium 5.2. Bicarb 27. Creatinine 1.91. Stool for occult blood positive. Objective - Vital Signs Vital signs: Vital Signs Temp 97.4 F L 02/23/19 12:27 Pulse 88 02/23/19 11:58 Resp 20 02/23/19 12:27 BP 120/84 02/23/19 12:27 Pulse Ox 100 02/23/19 12:27 Intake & Output 02/22/19 02/23/19 02/23/19 18:59 06:59 18:59 Intake Total 300 1300 Output Total 400 300 Balance -100 1300 -300 Intake: IV 150 Sodium Chloride 0.9% 1, 150 000 ml @ 50 mls/hr IV . Q20H [facility] Rx#:[id number] Intake, IV Titration 150 1000 Amount Piperacillin-Tazobactam 3 100 .375 gm In Sodium Chloride 0.9% 100 ml @ 25 mls/hr IVPB Q8HR [facility] Rx# :[id number] Sodium Chloride 0.9% 1, 150 900 000 ml @ 75 mls/hr IV . [id number] [facility] Rx#:[id number] Oral 300 Output: Urine 400 300 Other: # Voids 0 2 1 # Bowel Movements 1 1 - Exam GENERAL EXAM: Alert, active, pleasant 83-year-old gentleman, comfortable in no apparent distress. On 3 L nasal cannula. HEAD: Normocephalic. EYES: Normal reaction of pupils, equal size. NOSE: Clear with pink turbinates. THROAT: No erythema or exudates. NECK: No masses, no JVD. CHEST: No chest wall deformity. LUNGS: Equal air entry with crackles in the posterior bases left greater than right, diminished CVS: S1 and S2 normal with no audible murmur, regular rhythm. ABDOMEN: No hepatosplenomegaly, normal bowel sounds, no guarding or rigidity. SPINE: No scoliosis or deformity SKIN: No rashes CENTRAL NERVOUS SYSTEM: No focal deficits, tone is normal in all 4 extremities. EXTREMITIES: There is no peripheral edema. No clubbing, no cyanosis. Peripheral pulses are intact. - Labs CBC & Chem 7: 02/23/19 06:34 02/23/19 06:34 Labs: Abnormal Lab Results - Last 24 Hours (Table) 02/23/19 02/23/19 Range/Units 06:34 06:34 WBC 3.6 L (3.8-10.6) k/uL RBC 2.86 L (4.30-5.90) m/uL Hgb 8.4 L (13.0-17.5) gm/dL Hct 28.9 L (39.0-53.0) % MCV 101.0 H (80.0-100.0) fL MCHC 29.2 L (31.0-37.0) g/dL RDW 17.2 H (11.5-15.5) % Plt Count 116 L (150-450) k/uL Lymphocytes # 0.2 L (1.0-4.8) k/uL Potassium 5.2 H (3.5-5.1) mmol/L Chloride 110 H (98-107) mmol/L BUN 53 H (9-20) mg/dL Creatinine 1.91 H (0.66-1.25) mg/dL Glucose 139 H (74-99) mg/dL Microbiology - Last 24 Hours (Table) 02/21/19 12:20 Gram Stain - Final Sputum Sputum Culture - Final 02/20/19 20:55 Blood Culture - Preliminary Blood No Growth after 48 hours Assessment and Plan Assessment: Impression: Acute on chronic congestive heart failure, diastolic in nature, and most likely related to his acute presentation of atrial fibrillation with RVR. 2 history of esophageal cancer treated with systemic chemotherapy using carboplatin and Taxol along with radiation therapy 3 chronic atrial fibrillation 4 chronic anemia, of chronic disease. 5 type 2 diabetes without complications 6 acute on chronic kidney disease stage III. 7 bilateral pleural effusions, previous left-sided thoracentesis, fluid was negative for malignancy. Recommendation: The patient was seen and evaluated by Dr. Girard. Chest x-ray and labs were reviewed. He is improved today as compared to yesterday. We'll continue with the current treatment plan. Discontinue hydrocortisone and initiate prednisone. Increase his activity as tolerated. We'll continue to follow. I, the cosigning physician, performed a history & physical examination of the patient. Lungs sounds with crackles in the posterior bases left greater than right. Maintaining good O2 saturations in the 90s on 3 L/m per nasal cannula. I discussed the assessment and plan of care with my nurse practitioner, Ale Weaver. I attest to the above note as dictated by her.
[2019-02-23] MEDS: SODIUM CHLORIDE 0.9% 1,000 ML IV SCH (13:14)
[2019-02-23] MEDS: FAMOTIDINE 20 MG TAB PO SCH (21:05)
[2019-02-24] MEDS: SODIUM CHLORIDE 0.9% 1,000 ML IV SCH ×2 (02:33→14:03)
[2019-02-24] MEDS: IPRATROPIUM-ALBUTEROL 3 ML NEB INHALATION SCH ×4 (09:24→20:01)
[2019-02-24] MEDS: PIPERACILLIN-TAZOBACTAM 3.375 GM in SODIUM CHLORIDE 0.9% 100 ML IVPB SCH ×3 (09:40→23:58)
[2019-02-24] MEDS: HEPARIN SODIUM,PORCINE 5,000 UNIT/ML 1 ML VIAL SQ SCH ×2 (09:40→21:22)
[2019-02-24] MEDS: predniSONE 20 MG TAB PO SCH (09:40)
[2019-02-24] MEDS: METOPROLOL TARTRATE 25 MG TAB PO SCH ×2 (09:40→21:27)
[2019-02-24] MEDS: FUROSEMIDE 20 MG TAB PO SCH ×2 (09:40→17:07)
--- NOTE | 2019-02-24 12:29 | P.PN ---
Subjective Progress Note Date: 02/24/19 Principal diagnosis: Acute on chronic diastolic congestive heart failure 83-year-old male patient came into the emergency department which shortness of breath and generalized weakness. Note that the patient in the emergency was found to be short of breath. He was tachycardic and he was in atrial fibrillation which is a chronic problem that he was developing a rate of 130. N o fever. No hemoptysis. No pleurisy. The patient came in to the intensive care unit after he became hypotensive. Apparently was given Cardizem drip and subsequently became hypotensive. The Cardizem drip was discontinued and he was placed on norepinephrine infusion which was running at 5 g per minute and ultimately the norepinephrine infusion was discontinued. Current blood pressure is is 117/74 with a heart rate of 78. His pulse is 98% 4l of 2 by nasal cannula. He was given a total of 2 L of IV fluids. He is hemodynamically stable. He is producing good urine output.This patient is known to have multiple medical problems including coronary artery disease, previous coronary artery bypass surgery, diabetes mellitus, hypertension, atrial fibrillation and history of esophageal cancer and chronic stage III kidney disease . 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 He had a follow up PET scan on 04/24/2018 which revealed uptake at distal esophagus,stable midly prominent mediastinal nodes and small bilateral pleural effusion. He also had a repeat CT scan of chest/abdomen/pelvis on 06/18/2018,stable finding compared to prior PET scan.He had a repeat EGD on 06/10/2018 biopsy revealed high grade dysplasia and i ntestinal metaplasia,malignancy could not be excluded. In regard to his anemia,he has been requiring intermittent blood transfusion,it has become almost every 3 weeks since May/2018 despite procrit supplement. The patient was not felt to be a good candidate for esophageal resection. His last EGD and biopsy did not show any invasive malignancy. However local recurrence cannot be completely ruled out. The patient is still being followed up with oncology. She also has a left-sided pleural effusion with a total of 1.3 L of fluid was aspirated and the fluid cytology came back negative for malignancy. Subsequently, he came into the hospital back in December 2018 for pneumonia, treated and discharged home. Patient was reevaluated today on 02/22/2019, feeling better, remains in the ICU, responding well to treatment of his atrial fibrillation/RVR and treatment of his acute on chronic congestive heart failure chest x-ray continues to show small bilateral pleural effusions, left more so than right. Patient is hemodynamically stable, remains on Lasix. Remains on hydrocortisone which I will cut down and switched the patient to oral prednisone. Remains on antibiotics empirically, and he remains on beta blockers for his atrial fibrillation. Overall the patient is better, hence I plan to transfer the patient out of the ICU to a monitor bed on the cardiac floor. WBC count is 3.4 hemoglobin is 8.8 lites are normal BUN is 46 creatinine is 1.89. Patient will receive a dose of Lasix today. Urine output seems to be a bit marginal. The patient was seen again today on 02/23/2019 in follow-up on the regular medical floor. He is currently sitting up in a chair at the bedside. Awake and alert in no acute distress. He is maintaining O2 saturations up to 100% on 3 L/m per nasal cannula. She's been afebrile. Hemodynamically stable. Chest x- ray is stable with a small right and moderate left pleural effusion. Currently on Zosyn, bronchodilators, oral diuretics. White count 3.6. Hemoglobin 8.4. Sodium 145. Potassium 5.2. Bicarb 27. Creatinine 1.91. Stool for occult blood positive. The patient is seen today 02/24/2019 in follow-up on the regular medical floor. He is awake and alert in no acute distress. He's been up ambulating with assistance in the hallway. No worsening shortness of breath, cough or congestion. Still has some dyspnea on exertion. He is maintaining O2 saturations up to 100% on 3 L/m per nasal cannula. He is afebrile. Hemodynamically stable. Blood and sputum cultures reveal no growth. He remains on bronchodilators and Zosyn. Objective - Vital Signs Vital signs: Vital Signs Temp 97.4 F L 02/24/19 04:08 Pulse 72 02/24/19 09:37 Resp 16 02/24/19 04:08 BP 120/75 02/24/19 04:08 Pulse Ox 100 02/24/19 04:08 Intake & Output 02/23/19 02/24/19 02/24/19 18:59 06:59 18:59 Intake Total 1535 Output Total 1300 425 Balance -1300 1110 Intake: IV 100 Piperacillin-Tazobactam 3 100 .375 gm In Sodium Chloride 0.9% 100 ml @ 25 mls/hr IVPB Q8HR [facility] Rx# :[id number] Intake, IV Titration 775 Amount Sodium Chloride 0.9% 1, 775 000 ml @ 75 mls/hr IV . [id number] [facility] Rx#:[id number] Oral 660 Output: Urine 1300 425 Other: # Voids 1 1 # Bowel Movements 1 - Exam GENERAL EXAM: Alert, active, pleasant 83-year-old gentleman, comfortable in no apparent distress. On 3 L nasal cannula. HEAD: Normocephalic. EYES: Normal reaction of pupils, equal size. NOSE: Clear with pink turbinates. THROAT: No erythema or exudates. NECK: No masses, no JVD. CHEST: No chest wall deformity. LUNGS: Equal air entry with crackles in the posterior bases left greater than right, diminished CVS: S1 and S2 normal with no audible murmur, regular rhythm. ABDOMEN: No hepatosplenomegaly, normal bowel sounds, no guarding or rigidity. SPINE: No scoliosis or deformity SKIN: No rashes CENTRAL NERVOUS SYSTEM: No focal deficits, tone is normal in all 4 extremities. EXTREMITIES: There is no peripheral edema. No clubbing, no cyanosis. Peripheral pulses are intact. - Labs CBC & Chem 7: 02/23/19 06:34 02/23/19 06:34 Labs: Microbiology - Last 24 Hours (Table) 02/20/19 20:55 Blood Culture - Preliminary Blood No Growth after 72 hours 02/21/19 12:20 Gram Stain - Final Sputum Sputum Culture - Final Assessment and Plan Assessment: Impression: 1 Acute on chronic congestive heart failure, diastolic in nature, preserved left ventricular systolic function with ejection fraction 50-55%, and most likely related to his acute presentation of atrial fibrillation with RVR. 2 history of esophageal cancer treated with systemic chemotherapy using carboplatin and Taxol along with radiation therapy 3 chronic atrial fibrillation 4 chronic anemia, of chronic disease. 5 type 2 diabetes without complications 6 acute on chronic kidney disease stage III. 7 bilateral pleural effusions, previous left-sided thoracentesis, fluid was negative for malignancy. Recommendation: The patient was seen and evaluated by Dr. Girard. He is cleared for discharge from the pulmonary standpoint. Complete prednisone taper. Continue Symbicort and DuoNeb inhalations. Keep his appointment with Dr. Girard 03/02/2019 as scheduled. He is encouraged to call sooner with any recurrence of symptoms or other questions or concerns. I, the cosigning physician, performed a history & physical examination of the patient. Lungs sounds with crackles in the posterior bases left greater than right. Maintaining good O2 saturations in the 90s on 3 L/m per nasal cannula. I discussed the assessment and plan of care with my nurse practitioner, Ale Weaver. I attest to the above note as dictated by her.
--- NOTE | 2019-02-24 12:43 | P.PN ---
Subjective Patient of resting in chair at bedside. Complaining of edema to the penis. Able to urinate. Awaiting for assessment by surgery for occult blood Objective - Vital Signs Vital signs: Vital Signs Temp 97.6 F 02/24/19 12:26 Pulse 84 02/24/19 12:28 Resp 18 02/24/19 12:26 BP 130/97 02/24/19 12:26 Pulse Ox 97 02/24/19 12:26 Intake & Output 02/23/19 02/24/19 02/24/19 18:59 06:59 18:59 Intake Total 1535 Output Total 1300 425 Balance -1300 1110 Intake: IV 100 Piperacillin-Tazobactam 3 100 .375 gm In Sodium Chloride 0.9% 100 ml @ 25 mls/hr IVPB Q8HR [facility] Rx# :[id number] Intake, IV Titration 775 Amount Sodium Chloride 0.9% 1, 775 000 ml @ 75 mls/hr IV . [id number] [facility] Rx#:[id number] Oral 660 Output: Urine 1300 425 Other: # Voids 1 1 # Bowel Movements 1 - Constitutional General appearance: Present: mild distress - EENT Eyes: Present: PERRLA Ears: bilateral: normal - Neck Neck: Present: normal ROM - Respiratory Respiratory: bilateral: diminished, rhonchi - Cardiovascular Rhythm: irregularly irregular - Gastrointestinal General gastrointestinal: Present: soft - Genitourinary Male genitourinary: penile edema - Integumentary Integumentary: Present: normal - Neurologic Neurologic: Present: CNII-XII intact - Musculoskeletal Musculoskeletal: Present: generalized weakness - Psychiatric Psychiatric: Present: A&O x's 3, appropriate affect, intact judgment & insight - Labs CBC & Chem 7: 02/23/19 06:34 02/23/19 06:34 Labs: Microbiology - Last 24 Hours (Table) 02/20/19 20:55 Blood Culture - Preliminary Blood No Growth after 72 hours 02/21/19 12:20 Gram Stain - Final Sputum Sputum Culture - Final Assessment and Plan Plan: Assessment Acute dyspnea related to pleural effusion History of esophageal cancer with adenocarcinoma Positive occult blood in stool Chronic persistent atrial fibrillation Renal cysts COPD acute on chronic exacerbation Diabetes type 2 Cholelithiasis Congestive heart failure diastolic dysfunction pulmonary hypertension Hypertension Chronic anemia chronic disease Chronic kidney disease stage III GFR 32 Plan Awaiting consultation from surgery regarding a call blood Continue consultation with cardiology pulmonology Ultimate plan patient wishing to go to [place] and will order picker his of physicians down there
[2019-02-24] MEDS ORDERED: FUROSEMIDE 10 MG/ML 4 ML VIAL IV STA (13:41)
--- NOTE | 2019-02-24 14:09 | P.GSCN ---
History of Present Illness Consult date: 02/24/19 History of present illness: CHIEF COMPLAINT: Hematochezia HISTORY OF PRESENT ILLNESS: The patient is a 83 year old male who came in initially with shortness of breath. He has history of chronic anemia and esophageal cancer. He routinely takes iron supplements including Procrit. He reports his stools are usually dark. In [place], he was to have an upper endoscopy but not done. No hemotypsis. He has easy bruising. He has history of heme + stools. As a result of finding of occult positive stool, general surgery is consulted. He is tolerating a chicken salad. No reports of abdominal pain. PAST MEDICAL HISTORY: See list. PAST SURGICAL HISTORY: See list. MEDICATIONS: See list. ALLERGIES: See list. SOCIAL HISTORY: See list. FAMILY HISTORY: See list. REVIEW OF ORGAN SYSTEMS: CONSTITUTIONAL: No fevers or chills. EYES: Denies any trouble with vision. No glasses. HEENT: No difficulties with hearing. No nosebleeds. Has esophageal cancer. RESPIRATORY: Denies pneumonia. Has breathing or dyspnea on exertion. CARDIOVASCULAR: Has palpitations, or recent heart attacks. GASTROINTESTINAL: Denies fatty food intolerance. Has dark stools. Has GERD. GENITOURINARY: Has chronic kidney disease. NEUROLOGICAL: Denies any numbness or tingling along the distal extremities. No seizure disorders or headaches. MUSCULOSKELETAL: Has back pain, stiffness or joint arthritis. SKIN: No current skin cancer. No rash. PSYCHIATRIC: Denies current depression or suicidal thoughts. ENDOCRINE: Denies current thyroid disorders. Has blood sugar glucose intoleran ce. HEME/LYMPHATIC: Denies any lumps and bumps around the neck. No recent deep venous thrombosis. ALLERGY/IMMUNOLOGY: No immunoglobulin therapy. No immune deficiencies. BREAST: Denies current breast lumps, pain or nipple discharge. PHYSICAL EXAM: VITALS: Reviewed CONSTITUTIONAL: Well developed and in no acute distress. EYES: Conjuctivae without sclera icterus. Pupils are equally round and reactive to light. Extraocular movements grossly intact. HEAD, EARS, NOSE, THROAT: Moist buccal mucosa. Head is atraumatic, normocephalic. Hears conversational speech. No nasal drainage. NECK: Supple. No JV distention. RESPIRATORY: Non-labored respirations and equal bilateral excursions. CARDIOVASCULAR: Palpable 2+ radial pulses. ABDOMEN: Soft. Non-tender. Nondistended. MUSCULOSKELETAL: Nail and fingers with good capillary refill. SKIN: Warm and well perfused with good skin turgor. NEUROLOGIC: Cranial nerves I through XII grossly intact. Sensation upper and extremities intact. No focal or lateralizing signs. PSYCH: Appropriate affect. Alert and oriented to person, place and time. CLINCAL LABS: Reviewed. Hgb stable 8.8 to 8.4. RADIOLOGY: Report reviewed. Moderate bilateral effusions. IMAGING: Independently reviewed shows multiple large gallstones. No free air. ASSESSMENT: 1. Hematochezia 2. Heme positive stools 3. Esophageal cancer PLAN: 1. Recommend EGD. Will obtain EGD for dark stools. Benefits and risks reviewed. 2. Overall, he is high risk with history of bilateral pleural effusions. Thank you for this kind consultation. Past Medical History Past Medical History: Atrial Fibrillation, Cancer, COPD, Diabetes Mellitus, Hypertension, Renal Disease Additional Past Medical History / Comment(s): Coronary artery disease and a previous CABG X4 2011 in [place], as esophageal cancer details discussed above, chronic anemia, chronic bilateral pleural effusion left more than right and the patient has had a previous thoracentesis indicating no evidence of any malignancy, chronic kidney disease, chronic atrial fibrillation, hypertension, diabetes mellitus History of Any Multi-Drug Resistant Organisms: None Reported Past Surgical History: Appendectomy, Coronary Bypass/CABG, Orthopedic Surgery Additional Past Surgical History / Comment(s): bilateral hip replacement and Left Knee replacement Past Anesthesia/Blood Transfusion Reactions: No Reported Reaction Smoking Status: Former smoker - Past Family History Brother(s) Family Medical History: Cancer, Myocardial Infarction ([place]) Additional Family Medical History / Comment(s): "One of a heart attack at age of 45". "Another of a cancer, dont know what kind" Mother Additional Family Medical History / Comment(s): Leukemia Medications and Allergies Home Medications Medication Instructions Recorded Confirmed Type Metoprolol Tartrate 25 mg PO BID 05/20/14 02/20/19 History Paricalcitol 2 mcg PO MO 05/20/14 02/20/19 History Furosemide [Lasix] 40 mg PO DAILY 07/31/18 02/20/19 History Iron Polysaccharide Complex 150 mg PO DAILY 07/31/18 02/20/19 History [Ferrex 150] Lactobacillus Acidophilus 1 tab PO DAILY 07/31/18 02/20/19 History [Acidophilus] Pravastatin Sodium [Pravachol] 20 mg PO HS 07/31/18 02/20/19 History guaiFENesin [Mucinex] 600 mg PO BID 07/31/18 02/20/19 History Cholecalciferol [Vitamin D3] 400 unit PO BID 12/29/18 02/20/19 History Omeprazole 40 mg PO DAILY 12/29/18 02/20/19 History Budesonide-Formot 160-4.5 Mcg 2 puff INHALATION RT-BID #1 puff 12/31/18 02/20/19 Rx [Symbicort 160-4.5 Mcg Inhaler] Ipratropium-Albuterol Nebulize 3 ml INHALATION RT-QID #120 12/31/18 02/20/19 Rx [Duoneb 0.5 mg-3 mg/3 ml Soln] ampul.neb Allergies Allergy/AdvReac Type Severity Reaction Status Date / Time No Known Allergies Allergy Verified 02/20/19 20:59 Surgical - Exam Vital Signs Temp Pulse Resp BP Pulse Ox 101.5 F H 122 H 20 122/58 85 L 02/20/19 20:34 02/20/19 20:34 02/20/19 20:34 02/20/19 20:34 02/20/19 20:34 Results - Labs 02/23/19 06:34 02/23/19 06:34 Microbiology - Last 24 Hours (Table) 02/20/19 20:55 Blood Culture - Preliminary Blood No Growth after 72 hours Assessment and Plan (1) Bilateral pleural effusion Current Visit: Yes Status: Acute Code(s): J90 - PLEURAL EFFUSION, NOT ELSEWHERE CLASSIFIED SNOMED Code(s): 038903194 (2) Chronic iron deficiency anemia Current Visit: Yes Status: Acute Code(s): D50.9 - IRON DEFICIENCY ANEMIA, UNSPECIFIED SNOMED Code(s): 72610521 (3) Iron deficiency anemia secondary to blood loss (chronic) Current Visit: Yes Status: Acute Code(s): D50.0 - IRON DEFICIENCY ANEMIA SECONDARY TO BLOOD LOSS (CHRONIC) SNOMED Code(s): 657333566 (4) Anemia Current Visit: Yes Status: Acute Code(s): D64.9 - ANEMIA, UNSPECIFIED SNOMED Code(s): 936072259 (5) Atrial fibrillation with RVR Current Visit: Yes Status: Acute Code(s): I48.91 - UNSPECIFIED ATRIAL FIBRILLATION SNOMED Code(s): 316943417249849 (6) Esophageal cancer Current Visit: No Status: Acute Code(s): C15.9 - MALIGNANT NEOPLASM OF ESOPHAGUS, UNSPECIFIED SNOMED Code(s): 790411828
[2019-02-24] MEDS: FAMOTIDINE 20 MG TAB PO SCH (21:27)
[2019-02-25] MEDS: SODIUM CHLORIDE 0.9% 1,000 ML IV SCH ×2 (04:35→17:29)
[2019-02-25 06:30] LABS: Anisocytosis Slight; Basophils % (A) 1 %; Eosinophils % (A) 1 %; HCT 31.4 % (39.0-53.0); Hypochromasia Marked; Lymphocytes # (A) 0.3 k/uL (1.0-4.8); Lymphocytes % (A) 11 %; MCH 30.2 pg (25.0-35.0); MCHC 28.7 g/dL (31.0-37.0); Macrocytosis Marked; Mean Platelet Volume 7.8; Monocytes # (A) 0.2 k/uL (0-1.0); Monocytes % (A) 8 %; Neutrophils # (A) 1.8 k/uL (1.3-7.7); Neutrophils % (A) 78 %; Platelet Count 114 k/uL (150-450); RBC 2.98 m/uL (4.30-5.90); RDW 17.3 % (11.5-15.5); WBC 2.3 k/uL (3.8-10.6)
[2019-02-25 06:33] LABS: MCV 105.4 fL (80.0-100.0)
[2019-02-25 06:40] LABS: Albumin 3.2 g/dL (3.5-5.0); Calcium 9.6 mg/dL (8.4-10.2); Potassium 4.1 mmol/L (3.5-5.1); Total Bilirubin 0.4 mg/dL (0.2-1.3); Total Protein 6.3 g/dL (6.3-8.2)
[2019-02-25] MEDS: IPRATROPIUM-ALBUTEROL 3 ML NEB INHALATION SCH ×4 (07:33→20:03)
[2019-02-25] MEDS: PIPERACILLIN-TAZOBACTAM 3.375 GM in SODIUM CHLORIDE 0.9% 100 ML IVPB SCH ×3 (09:10→23:52)
[2019-02-25] MEDS ORDERED: PROPOFOL 10 MG/ML 20 ML VIAL IV ONE (09:51)
[2019-02-25] MEDS ORDERED: IV FLUID CONTINUATION 1,000 ML IV ONE (09:54)
--- NOTE | 2019-02-25 10:19 | P.PN ---
Subjective Progress Note Date: 02/25/19 Principal diagnosis: Acute on chronic diastolic congestive heart failure 83-year-old male patient came into the emergency department which shortness of breath and generalized weakness. Note that the patient in the emergency was found to be short of breath. He was tachycardic and he was in atrial fibrillation which is a chronic problem that he was developing a rate of 130. N o fever. No hemoptysis. No pleurisy. The patient came in to the intensive care unit after he became hypotensive. Apparently was given Cardizem drip and subsequently became hypotensive. The Cardizem drip was discontinued and he was placed on norepinephrine infusion which was running at 5 g per minute and ultimately the norepinephrine infusion was discontinued. Current blood pressure is is 117/74 with a heart rate of 78. His pulse is 98% 4l of 2 by nasal cannula. He was given a total of 2 L of IV fluids. He is hemodynamically stable. He is producing good urine output.This patient is known to have multiple medical problems including coronary artery disease, previous coronary artery bypass surgery, diabetes mellitus, hypertension, atrial fibrillation and history of esophageal cancer and chronic stage III kidney disease . 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 He had a follow up PET scan on 04/24/2018 which revealed uptake at distal esophagus,stable midly prominent mediastinal nodes and small bilateral pleural effusion. He also had a repeat CT scan of chest/abdomen/pelvis on 06/18/2018,stable finding compared to prior PET scan.He had a repeat EGD on 06/10/2018 biopsy revealed high grade dysplasia and i ntestinal metaplasia,malignancy could not be excluded. In regard to his anemia,he has been requiring intermittent blood transfusion,it has become almost every 3 weeks since May/2018 despite procrit supplement. The patient was not felt to be a good candidate for esophageal resection. His last EGD and biopsy did not show any invasive malignancy. However local recurrence cannot be completely ruled out. The patient is still being followed up with oncology. She also has a left-sided pleural effusion with a total of 1.3 L of fluid was aspirated and the fluid cytology came back negative for malignancy. Subsequently, he came into the hospital back in December 2018 for pneumonia, treated and discharged home. Patient was reevaluated today on 02/22/2019, feeling better, remains in the ICU, responding well to treatment of his atrial fibrillation/RVR and treatment of his acute on chronic congestive heart failure chest x-ray continues to show small bilateral pleural effusions, left more so than right. Patient is hemodynamically stable, remains on Lasix. Remains on hydrocortisone which I will cut down and switched the patient to oral prednisone. Remains on antibiotics empirically, and he remains on beta blockers for his atrial fibrillation. Overall the patient is better, hence I plan to transfer the patient out of the ICU to a monitor bed on the cardiac floor. WBC count is 3.4 hemoglobin is 8.8 lites are normal BUN is 46 creatinine is 1.89. Patient will receive a dose of Lasix today. Urine output seems to be a bit marginal. The patient was seen again today on 02/23/2019 in follow-up on the regular medical floor. He is currently sitting up in a chair at the bedside. Awake and alert in no acute distress. He is maintaining O2 saturations up to 100% on 3 L/m per nasal cannula. She's been afebrile. Hemodynamically stable. Chest x- ray is stable with a small right and moderate left pleural effusion. Currently on Zosyn, bronchodilators, oral diuretics. White count 3.6. Hemoglobin 8.4. Sodium 145. Potassium 5.2. Bicarb 27. Creatinine 1.91. Stool for occult blood positive. The patient is seen today 02/24/2019 in follow-up on the regular medical floor. He is awake and alert in no acute distress. He's been up ambulating with assistance in the hallway. No worsening shortness of breath, cough or congestion. Still has some dyspnea on exertion. He is maintaining O2 saturations up to 100% on 3 L/m per nasal cannula. He is afebrile. Hemodynamically stable. Blood and sputum cultures reveal no growth. He remains on bronchodilators and Zosyn. The patient is seen today 02/25/2018 in follow-up on the regular medical floor. He is currently awake and alert in no acute distress. He states his breathing is nearly back to his baseline. Still some dyspnea on minimal exertion. He is maintaining O2 saturations up to 100% on 3 L/m per nasal cannula. He is afebrile. Hemodynamically stable. Sputum culture reveals no growth. Blood cultures reveal no growth. White count 2.3. Hemoglobin 9.0. MCV 105. Platelets 114,000. Sodium 143. Potassium 4.1. Chloride 109. Bicarb 27. Creatinine 1.92. Currently on Zosyn. He did receive an dose of Lasix 40 mg IVP 1 yesterday. He was found to have positive stool for occult blood. He was seen and evaluated by surgical services. He does have history of esophageal cancer and the plan is for EGD today. Objective - Vital Signs Vital signs: Vital Signs Temp 97.4 F L 02/25/19 05:00 Pulse 65 02/25/19 05:00 Resp 16 02/25/19 05:00 BP 133/76 02/25/19 05:00 Pulse Ox 100 02/25/19 05:00 Intake & Output 02/24/19 02/25/19 02/25/19 18:59 06:59 18:59 Intake Total 240 340 Output Total 600 200 Balance -360 340 -200 Intake: IV 100 Piperacillin-Tazobactam 3 100 .375 gm In Sodium Chloride 0.9% 100 ml @ 25 mls/hr IVPB Q8HR [facility] Rx# :[id number] Oral 240 240 Output: Urine 600 200 Other: Voiding Method Urinal # Voids 3 2 # Bowel Movements 1 1 - Exam GENERAL EXAM: Alert, active, pleasant 83-year-old gentleman, comfortable in no apparent distress. On 3 L nasal cannula. HEAD: Normocephalic. EYES: Normal reaction of pupils, equal size. NOSE: Clear with pink turbinates. THROAT: No erythema or exudates. NECK: No masses, no JVD. CHEST: No chest wall deformity. LUNGS: Equal air entry with crackles in the posterior bases left greater than right, diminished CVS: S1 and S2 normal with no audible murmur, regular rhythm. ABDOMEN: No hepatosplenomegaly, normal bowel sounds, no guarding or rigidity. SPINE: No scoliosis or deformity SKIN: No rashes CENTRAL NERVOUS SYSTEM: No focal deficits, tone is normal in all 4 extremities. EXTREMITIES: There is no peripheral edema. No clubbing, no cyanosis. Peripheral pulses are intact. - Labs CBC & Chem 7: 02/25/19 06:01 02/25/19 06:01 Labs: Abnormal Lab Results - Last 24 Hours (Table) 02/25/19 02/25/19 Range/Units 06:01 06:01 WBC 2.3 L (3.8-10.6) k/uL RBC 2.98 L (4.30-5.90) m/uL Hgb 9.0 L (13.0-17.5) gm/dL Hct 31.4 L (39.0-53.0) % MCV 105.4 H (80.0-100.0) fL MCHC 28.7 L (31.0-37.0) g/dL RDW 17.3 H (11.5-15.5) % Plt Count 114 L (150-450) k/uL Lymphocytes # 0.3 L (1.0-4.8) k/uL Macrocytosis Marked A Chloride 109 H (98-107) mmol/L BUN 51 H (9-20) mg/dL Creatinine 1.92 H (0.66-1.25) mg/dL Glucose 115 H (74-99) mg/dL ALT 18 L (21-72) U/L Albumin 3.2 L (3.5-5.0) g/dL Microbiology - Last 24 Hours (Table) 02/20/19 20:55 Blood Culture - Preliminary Blood No Growth after 96 hours Assessment and Plan Assessment: Impression: 1 Acute on chronic congestive heart failure, diastolic in nature, preserved left ventricular systolic function with ejection fraction 50-55%, and most likely related to his acute presentation of atrial fibrillation with RVR. 2 history of esophageal cancer treated with systemic chemotherapy using carboplatin and Taxol along with radiation therapy 3 chronic atrial fibrillation 4 chronic anemia, of chronic disease. Stool heme positive. EGD today 07/2018. 5 type 2 diabetes without complications 6 acute on chronic kidney disease stage III. 7 bilateral pleural effusions, previous left-sided thoracentesis, fluid was negative for malignancy. Recommendation: The patient was seen and evaluated by Dr. Girard. He is stable from the pulmonary standpoint. Complete a prednisone taper. Continue Symbicort and DuoNeb inhalations. Awaiting EGD results. We will continue to follow. I, the cosigning physician, performed a history & physical examination of the patient. Lungs sounds with crackles in the posterior bases left greater than right. Maintaining good O2 saturations in the 90s on 3 L/m per nasal cannula. I discussed the assessment and plan of care with my nurse practitioner, Ale Weaver. I attest to the above note as dictated by her.
--- NOTE | 2019-02-25 10:22 | P.PCN ---
Date of Procedure: 02/25/19 Description of Procedure: PREOPERATIVE DIAGNOSIS: History of esophageal cancer Anemia Gastrointestinal bleed Bilateral pleural effusions POSTOPERATIVE DIAGNOSIS: History of esophageal cancer Anemia Gastrointestinal bleed Bilateral pleural effusions Esophageal 5 cm mass distal esophagus, likely recurrent malignant neoplasm OPERATION: Esophagogastroduodenoscopy with biopsies along antrum and distal esophageal mass SURGEON: Martina Cosme MD ANESTHESIA: MAC. INDICATIONS: The patient is a 83-year-old male who presents with a history of esophageal cancer, anemia, heme positive stools tests. Benefits and risks of the procedure were described. Informed consent was obtained. DESCRIPTION: The patient was brought into the endoscopy suite and laid in the left lateral decubitus position. An Olympus gastroscope was passed along the posterior oropharynx down to the distal esophagus where the squamocolumnar junction was encountered at 40 cm from the incisors. A polypoid 5 cm in length lesion between 35-40 cm from the incisors was easily friable lesion occupying 30% of the lumen was identified with cold forceps biopsies obtained. The stomach was entered and no bile reflux was found. Additional findings are listed below. Biopsies with cold forceps were obtained of the antrum. The first through third portion of the duodenum was examined and unremarkable. Retroflexion of the scope confirmed Hill grade 3 lower esophageal valve. The squamocolumnar junction demonstrated LA grade B erosive esophagitis. The stomach was desufflated. The patient tolerated the procedure well. FINDINGS: Squamocolumnar junction 40 cm from the incisors. Diaphragmatic hiatus at 40 cm. A polypoid 5 cm in length lesion between 35-40 cm from the incisors easily friable occupying 30% of the lumen with cold forceps biopsies obtained. Hill grade 3 lower esophageal valve. LA grade B erosive esophagitis. No active duodenitis. Chronic gastritis with recent bleed with biopsies obtained RECOMMENDATIONS: Upper endoscopy as needed. Findings overall highly suspicious for recurrent malignant esophageal cancer
[2019-02-25] MEDS: predniSONE 20 MG TAB PO SCH (11:48)
[2019-02-25] MEDS: METOPROLOL TARTRATE 25 MG TAB PO SCH ×2 (11:48→20:33)
[2019-02-25] MEDS: HEPARIN SODIUM,PORCINE 5,000 UNIT/ML 1 ML VIAL SQ SCH ×2 (11:49→20:33)
[2019-02-25] MEDS: FUROSEMIDE 20 MG TAB PO SCH ×2 (11:49→17:27)
--- NOTE | 2019-02-25 12:26 | P.PN ---
Subjective Progress Note Date: 02/25/19 Patient post EGD this morning found to have recurrent esophageal cancer and gastritis. Patient noted to be dyspneic with ambulation of 10 feet only discuss case with pulmonology Objective - Vital Signs Vital signs: Vital Signs Temp 97.3 F L 02/25/19 11:45 Pulse 64 02/25/19 11:45 Resp 15 02/25/19 11:30 BP 144/65 02/25/19 11:45 Pulse Ox 100 02/25/19 11:45 Intake & Output 02/24/19 02/25/19 02/25/19 18:59 06:59 18:59 Intake Total 240 340 100 Output Total 600 200 Balance -360 340 -100 Intake: IV 100 100 Piperacillin-Tazobactam 3 100 .375 gm In Sodium Chloride 0.9% 100 ml @ 25 mls/hr IVPB Q8HR [facility] Rx# :[id number] Oral 240 240 Output: Urine 600 200 Other: Voiding Method Urinal Urinal # Voids 3 2 # Bowel Movements 1 1 - Constitutional General appearance: Present: mild distress - EENT Eyes: Present: PERRLA Ears: bilateral: normal - Neck Neck: Present: normal ROM - Respiratory Respiratory: bilateral: diminished - Cardiovascular Rhythm: irregularly irregular Abnormal Heart Sounds: Present: systolic murmur - Gastrointestinal General gastrointestinal: Present: soft - Integumentary Integumentary: Present: normal - Neurologic Neurologic: Present: CNII-XII intact - Musculoskeletal Musculoskeletal: Present: generalized weakness - Psychiatric Psychiatric: Present: A&O x's 3, appropriate affect, intact judgment & insight - Labs CBC & Chem 7: 02/25/19 06:01 02/25/19 06:01 Labs: Abnormal Lab Results - Last 24 Hours (Table) 02/25/19 02/25/19 Range/Units 06:01 06:01 WBC 2.3 L (3.8-10.6) k/uL RBC 2.98 L (4.30-5.90) m/uL Hgb 9.0 L (13.0-17.5) gm/dL Hct 31.4 L (39.0-53.0) % MCV 105.4 H (80.0-100.0) fL MCHC 28.7 L (31.0-37.0) g/dL RDW 17.3 H (11.5-15.5) % Plt Count 114 L (150-450) k/uL Lymphocytes # 0.3 L (1.0-4.8) k/uL Macrocytosis Marked A Chloride 109 H (98-107) mmol/L BUN 51 H (9-20) mg/dL Creatinine 1.92 H (0.66-1.25) mg/dL Glucose 115 H (74-99) mg/dL ALT 18 L (21-72) U/L Albumin 3.2 L (3.5-5.0) g/dL Microbiology - Last 24 Hours (Table) 02/20/19 20:55 Blood Culture - Preliminary Blood No Growth after 96 hours Assessment and Plan Plan: Assessment Dyspnea related to pulmonary effusion The pneumonia esophageal cancer with adenocarcinoma Gastritis positive occult blood in stool Chronic persistent atrial fibrillation Acute exacerbation of COPD Diabetes type 2 Hypertension Cholelithiasis Congestive heart failure diastolic dysfunction with pulmonary hypertension Chronic anemia of chronic disease Chronic kidney disease stage III GFR 32 Plan Continue consultation with surgery Cardiology and pulmonology
--- NOTE | 2019-02-25 19:27 | P.PN ---
Progress Note - Text Progress Note Date: 02/25/19 Findings of EGD reviewed. Recommend follow up with oncology. Okay with discharge when medically stable.
[2019-02-25] MEDS: SYMBICORT 160-4.5 MCG INHALER INHALATION SCH (20:03)
[2019-02-25] MEDS: FAMOTIDINE 20 MG TAB PO SCH (20:33)
[2019-02-26] MEDS: SODIUM CHLORIDE 0.9% 1,000 ML IV SCH (04:01)
[2019-02-26] MEDS: IPRATROPIUM-ALBUTEROL 3 ML NEB INHALATION SCH ×4 (08:01→20:34)
[2019-02-26] MEDS: SYMBICORT 160-4.5 MCG INHALER INHALATION SCH ×2 (08:02→20:34)
[2019-02-26] MEDS: FUROSEMIDE 20 MG TAB PO SCH (08:42)
[2019-02-26] MEDS: predniSONE 20 MG TAB PO SCH (08:42)
[2019-02-26] MEDS: METOPROLOL TARTRATE 25 MG TAB PO SCH ×2 (08:42→20:39)
[2019-02-26] MEDS: HEPARIN SODIUM,PORCINE 5,000 UNIT/ML 1 ML VIAL SQ SCH ×2 (08:42→20:39)
[2019-02-26] MEDS: PIPERACILLIN-TAZOBACTAM 3.375 GM in SODIUM CHLORIDE 0.9% 100 ML IVPB SCH ×2 (08:43→16:01)
--- NOTE | 2019-02-26 09:25 | P.PN ---
Subjective Progress Note Date: 02/26/19 CHIEF COMPLAINT: Recurrent esophageal mass HISTORY OF PRESENT ILLNESS: The patient is a 83-year-old male postop day 1 status post upper endoscopy. He had new findings of esophageal mass. He is resting comfortably. He had a bowel movement this morning. ROS: No fevers or chills. No new chest pain. No productive sputum PHYSICAL EXAM: VITAL SIGNS: Reviewed CONSTITUTIONAL: Well developed and in no acute distress. EYES: Conjuctivae without sclera icterus. Extraocular movements grossly intact. HEAD, EARS, NOSE, THROAT: Moist buccal mucosa. Head is atraumatic, normocephalic. Hears conversational speech. No nasal drainage. RESPIRATORY: Non-labored respirations and equal bilateral excursions. CARDIOVASCULAR: Palpable 2+ radial pulses. ABDOMEN: No peritonitis. MUSCULOSKELETAL: No gross deformity of the lower extremities noted. SKIN: Good skin turgor. Well perfused. NEUROLOGIC: Cranial nerves I through XII grossly intact. No focal or lateralizing signs. PSYCH: Appropriate affect. Alert and oriented to person. CLINCAL LABS: White blood cell count normal. Last hemoglobin over 8.0 ASSESSMENT: 1. Recurrent esophageal mass 2. History of esophageal cancer 3. Bilateral pleural effusions 4. Iron deficiency anemia due to chronic blood loss PLAN: 1. Recommend follow-up with oncology especially with pathology results. 2. May discharge from a surgical standpoint. Objective - Vital Signs Vital signs: Vital Signs Temp 97.5 F L 02/26/19 05:00 Pulse 74 02/26/19 08:16 Resp 20 02/26/19 05:00 BP 110/67 02/26/19 05:00 Pulse Ox 95 02/26/19 05:00 Intake & Output 02/25/19 02/26/19 02/26/19 18:59 06:59 18:59 Intake Total 1160 1410 Output Total 400 800 Balance 760 610 Intake: IV 100 100 Piperacillin-Tazobactam 3 100 .375 gm In Sodium Chloride 0.9% 100 ml @ 25 mls/hr IVPB Q8HR [facility] Rx# :[id number] Intake, IV Titration 100 Amount Piperacillin-Tazobactam 3 100 .375 gm In Sodium Chloride 0.9% 100 ml @ 25 mls/hr IVPB Q8HR [facility] Rx# :[id number] Oral 960 1310 Output: Urine 400 800 Other: Voiding Method Urinal Urinal # Voids 4 2 # Bowel Movements 1 1 - Labs CBC & Chem 7: 02/25/19 06:01 02/25/19 06:01 Labs: Microbiology - Last 24 Hours (Table) 02/20/19 20:55 Blood Culture - Preliminary Blood No Growth after 120 hours Assessment and Plan (1) Bilateral pleural effusion Current Visit: Yes Status: Acute Code(s): J90 - PLEURAL EFFUSION, NOT ELSEWHERE CLASSIFIED SNOMED Code(s): 936084129 (2) Chronic iron deficiency anemia Current Visit: Yes Status: Acute Code(s): D50.9 - IRON DEFICIENCY ANEMIA, UNSPECIFIED SNOMED Code(s): 45265555 (3) Iron deficiency anemia secondary to blood loss (chronic) Current Visit: Yes Status: Acute Code(s): D50.0 - IRON DEFICIENCY ANEMIA SECONDARY TO BLOOD LOSS (CHRONIC) SNOMED Code(s): 322090462 (4) Anemia Current Visit: Yes Status: Acute Code(s): D64.9 - ANEMIA, UNSPECIFIED SNOMED Code(s): 172474430 (5) Atrial fibrillation with RVR Current Visit: Yes Status: Acute Code(s): I48.91 - UNSPECIFIED ATRIAL FIB RILLATION SNOMED Code(s): 637426946624091 (6) Esophageal cancer Current Visit: No Status: Acute Code(s): C15.9 - MALIGNANT NEOPLASM OF ESOPHAGUS, UNSPECIFIED SNOMED Code(s): 033065450
--- NOTE | 2019-02-26 14:22 | XR ---
EXAMINATION TYPE: XR chest 2V DATE OF EXAM: 02/26/2019 COMPARISON: 02/23/2019 HISTORY: Pleural effusion. Follow-up. Prior esophageal cancer. TECHNIQUE: Frontal and lateral views of the chest are obtained. 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 Slightly increasing moderate left pleural effusio n and stable small right pleural effusion with associated bibasilar airspace disease. Minimal pulmona ry vascular congestion with Deandre B-lines on the left. Diffuse osseous demineralization is seen with extensive degenerative changes of the left shoulder. Cardia mediastinal silhouette is obscured. No s izable pneumothorax. Right-sided Mediport is stable. IMPRESSION: Slightly increased moderate left pleural effusion and stable and small right pleural eff usion with associated bibasilar airspace disease and minimal interstitial edema.
[2019-02-26 14:45] VITALS: BMI 27.9
--- NOTE | 2019-02-26 14:51 | P.PN ---
Subjective Progress Note Date: 02/26/19 Principal diagnosis: This is a pleasant 83-year-old male that is a patient of Dr. Prieto. Patient underwent an EGD yesterday with biopsy with Dr. Cosme and is being closely monitored. Biopsy results are pending and patient will follow-up in the outpatient setting with oncology for results. Patient is sitting up in the chair in no acute distress. Patient is still having some mild shortness of breath with exertion and remains on 2 L of oxygen via nasal cannula. Repeat chest x-ray done this afternoon shows slightly increased moderate left pleural effusion that is stable and small right pleural effusion with associated bibasilar airspace disease and minimal interstitial edema. Patient will be given a couple doses of IV Lasix. Patient denies any chest pain or palpitations at this time. Patient is afebrile. Patient denies any nausea or vomiting and has been tolerating diet. Patient denies any difficulty in swallowing status post EGD yesterday. Patient states that they normally live in [place] and her up here visiting their daughter and would like to return to [place] as he has providers down there as well. Patient stated slightly unsteady and uses a wa lker. Patient is refusing any form of rehab at this time. Guarded prognosis. Objective - Vital Signs Vital signs: Vital Signs Temp 97.6 F 02/26/19 13:00 Pulse 64 02/26/19 13:00 Resp 17 02/26/19 13:00 BP 137/65 02/26/19 13:00 Pulse Ox 100 02/26/19 13:00 Intake & Output 02/25/19 02/26/19 02/26/19 18:59 06:59 18:59 Intake Total 1160 1410 Output Total 400 800 Balance 760 610 Intake: IV 100 100 Piperacillin-Tazobactam 3 100 .375 gm In Sodium Chloride 0.9% 100 ml @ 25 mls/hr IVPB Q8HR [facility] Rx# :[id number] Intake, IV Titration 100 Amount Piperacillin-Tazobactam 3 100 .375 gm In Sodium Chloride 0.9% 100 ml @ 25 mls/hr IVPB Q8HR [facility] Rx# :[id number] Oral 960 1310 Output: Urine 400 800 Other: Voiding Method Urinal Urinal # Voids 4 2 1 # Bowel Movements 1 1 - Exam Gen: This is a 83-year-old male sitting up in the chair in no acute distress. HEENT: Head is atraumatic, normocephalic. Pupils equal, round. Sclerae is anicteric. NECK: Supple. Mild JVD noted on exam. No lymphadenopathy. No thyromegaly. LUNGS: Diminished breath sounds at the bases with a few scattered rhonchi noted. No intercostal retractions. HEART: Irregularly irregular with a systolic murmur noted ABDOMEN: Soft. Bowel sounds are present. No masses. No tenderness. EXTREMITIES: No pedal edema. No calf tenderness. NEUROLOGICAL: Patient is awake, alert and oriented x3. Cranial nerves 2 through 12 are grossly intact. Generalized weakness - Labs CBC & Chem 7: 02/25/19 06:01 02/25/19 06:01 Labs: Microbiology - Last 24 Hours (Table) 02/20/19 20:55 Blood Culture - Preliminary Blood No Growth after 120 hours Assessment and Plan Assessment: Acute Dyspnea related to pleural effusion History of esophageal cancer with adenocarcinoma Gastritis positive occult blood in stool Chronic persistent atrial fibrillation Renal cysts Acute exacerbation of COPD, acute on chronic Diabetes type 2 Hypertension Cholelithiasis Congestive heart failure diastolic dysfunction with pulmonary hypertension Chronic anemia of chronic disease Chronic kidney disease stage III GFR 32 Recommendations and discussion: Recommend continue medications, management, and symptomatic treatment. Repeat chest x-ray due to shortness of breath on exertion shows slightly increased moderate left pleural effusion and stable with small right pleural effusion with associated bibasilar airspace disease and minimal interstitial edema. Patient will be given a couple doses of IV Lasix and diuresed. is at the bedside and agrees with the treatment plan. Patient states they normally live in [place] and are staying with her daughter at this time. Patient would like to return to [place] upon discharge as he has providers there. Patient will need to follow-up with oncology for biopsy results from the EGD yesterday. Guarded prognosis. Further recommendations to follow. Possible discharge in 24 hours.
[2019-02-26] MEDS: FUROSEMIDE 10 MG/ML 4 ML VIAL IV SCH ×2 (15:59→20:39)
[2019-02-26] MEDS: FAMOTIDINE 20 MG TAB PO SCH ×2 (20:38→20:39)
[2019-02-27] MEDS: PIPERACILLIN-TAZOBACTAM 3.375 GM in SODIUM CHLORIDE 0.9% 100 ML IVPB SCH ×3 (00:20→16:36)
[2019-02-27] MEDS: FUROSEMIDE 10 MG/ML 4 ML VIAL IV SCH ×2 (08:16→20:46)
[2019-02-27] MEDS: HEPARIN SODIUM,PORCINE 5,000 UNIT/ML 1 ML VIAL SQ SCH ×2 (08:16→20:46)
[2019-02-27] MEDS: predniSONE 20 MG TAB PO SCH (08:16)
[2019-02-27] MEDS: METOPROLOL TARTRATE 25 MG TAB PO SCH ×2 (08:16→20:47)
[2019-02-27 08:36] LABS: Calcium 9.8 mg/dL (8.4-10.2); Potassium 3.8 mmol/L (3.5-5.1)
[2019-02-27] MEDS: SYMBICORT 160-4.5 MCG INHALER INHALATION SCH ×2 (08:38→19:45)
[2019-02-27] MEDS: IPRATROPIUM-ALBUTEROL 3 ML NEB INHALATION SCH ×4 (08:38→19:45)
--- NOTE | 2019-02-27 10:24 | P.PN ---
Subjective 83-year-old male that is a patient of Dr. Seos. Patient underwent an EGD yesterday with biopsy with Dr. Cosme and is being closely monitored. Biopsy results are pending and patient will follow-up in the outpatient setting with oncology for results. Patient is sitting up in the chair in no acute distress. Patient is still having some mild shortness of breath with exertion and remains on 2 L of oxygen via nasal cannula. Repeat chest x-ray done this afternoon shows slightly increased moderate left pleural effusion that is stable and small right pleural effusion with associated bibasilar airspace disease and minimal interstitial edema. Patient will be given a couple doses of IV Lasix. Patient denies any chest pain or palpitations at this time. Patient is afebrile. Patient denies any nausea or vomiting and has been tolerating diet. Patient denies any difficulty in swallowing status post EGD yesterday. Patient states that they normally live in [place] and her up here visiting their daughter and would like to return to [place] as he has providers down there as well. Patient stated slightly unsteady and uses a walker. Patient is refusing any form of rehab at this time. 02/27/2019 Patient is feeling better today AND saturations of improved patient may not require any oxygen any more. Although patient is does have some pedal edema has still minimally elevated JVD lung exam improved I believe one more day of IV Lasix will benefit him his. He function continued to improve with IV Lasix. Constitutional: Denied any fatigue denied any fever. Cardio vascular: denied any chest pain, palpitations Gastrointestinal denied any nausea vomiting Pulmonary: Denied any shortness of breath cough Neurologic denied any new focal deficits All inpatient medications were reviewed and appropriate changes in these medications as dictated in the interval history and assessment and plan. Objective - Vital Signs Vital signs: Vital Signs Temp 97.6 F 02/27/19 04:59 Pulse 72 02/27/19 08:51 Resp 18 02/27/19 04:59 BP 119/62 02/27/19 04:59 Pulse Ox 100 02/27/19 04:59 Intake & Output 02/26/19 02/27/19 02/27/19 18:59 06:59 18:59 Intake Total 480 690 Output Total 800 1070 Balance -320 -380 Weight 88.3 kg Intake: IV 100 Piperacillin-Tazobactam 3 100 .375 gm In Sodium Chloride 0.9% 100 ml @ 25 mls/hr IVPB Q8HR [facility] Rx# :[id number] Oral 480 590 Output: Urine 800 1070 Other: Voiding Method Urinal Urinal # Voids 1 3 - Exam PHYSICAL EXAMINATION: GENERAL: The patient is alert and oriented x3, not in any acute distress. Well developed, well nourished. HEENT: Pupils are round and equally reacting to light. EOMI. No scleral icterus. No conjunctival pallor. Normocephalic, atraumatic. No pharyngeal erythema. No thyromegaly. CARDIOVASCULAR: S1 and S2 present. No murmurs, rubs, or gallops. does have elevated JVD PULMONARY: Chest is clear to auscultation, no wheezing or crackles. ABDOMEN: Soft, nontender, nondistended, normoactive bowel sounds. No palpable organomegaly. MUSCULOSKELETAL: No joint swelling or deformity. EXTREMITIES: No cyanosis, clubbing, pedal edema improving still has pedal edema NEUROLOGICAL: Gross neurological examination did not reveal any focal deficits. SKIN: No rashes. - Labs CBC & Chem 7: 02/25/19 06:01 02/27/19 07:17 Labs: Abnormal Lab Results - Last 24 Hours (Table) 02/27/19 Range/Units 07:17 BUN 43 H (9-20) mg/dL Creatinine 1.71 H (0.66-1.25) mg/dL Glucose 130 H (74-99) mg/dL Microbiology - Last 24 Hours (Table) 02/20/19 20:55 Blood Culture - Final Blood No Growth after 144 hours Assessment and Plan Plan: -shortness of breath acute hypoxic respiratory failure secondary to bilateral pleural effusion congestive heart failure with acute exacerbation patient has diastolic dysfunction. -Esophageal adenocarcinoma patient is status post upper GI endoscopy. -Persistent A. fib presently rate controlled continue with anti-correlation -COPD with acute exacerbation COPD is not an issue now patient is not wheezing at this time Antihypertensive 2 diabetes mellitus Hypertension -Anemia of chronic kidney disease -C Joselyn stage II to 3 -Acute renal failure we'll azotemia from congestive heart failure which is improving at this time continue with Lasix
[2019-02-28] MEDS: PIPERACILLIN-TAZOBACTAM 3.375 GM in SODIUM CHLORIDE 0.9% 100 ML IVPB SCH (00:02)
[2019-02-28] MEDS: HEPARIN SODIUM,PORCINE 5,000 UNIT/ML 1 ML VIAL SQ SCH (07:54)
[2019-02-28] MEDS: METOPROLOL TARTRATE 25 MG TAB PO SCH (07:54)
[2019-02-28] MEDS: predniSONE 20 MG TAB PO SCH (07:54)
[2019-02-28] MEDS: FUROSEMIDE 10 MG/ML 4 ML VIAL IV SCH (07:54)
[2019-02-28] MEDS: SYMBICORT 160-4.5 MCG INHALER INHALATION SCH (09:22)
[2019-02-28] MEDS: IPRATROPIUM-ALBUTEROL 3 ML NEB INHALATION SCH ×2 (09:22→13:56)
[2019-02-28 11:46] VITALS: BP 153/66; RESP 17; TEMP 98.1
[2019-02-28 12:17] VITALS: PULSE 93
--- NOTE | 2019-02-28 13:41 | P.DS ---
Providers Date of admission: 02/20/19 22:41 Attending physician: Alex Wright Consults: 02/21/19 00:09 Consult Physician Routine Consulting Provider: Erin Barboza Consult Reason/Comments: afib Do you want consulting provider notified?: Yes 02/21/19 05:09 Consult Physician Routine Consulting Provider: Steff Herrera Consult Reason/Comments: ICU Do you want consulting provider notified?: Already Contacted 02/23/19 12:22 Consult Physician Urgent Consulting Provider: Martina Cosme Consult Reason/Comments: positive occult stool hx esophageal cancer Do you want consulting provider notified?: Yes Primary care physician: Alex Wright Hospital Course: 83-year-old male that is a patient of Dr. Wright's. Patient underwent an EGD yesterday with biopsy with Dr. Cosme and is being closely monitored. Biopsy results are pending and patient will follow-up in the outpatient setting with oncology for results. Patient is sitting up in the chair in no acute distress. Patient is still having some mild shortness of breath with exertion and remains on 2 L of oxygen via nasal cannula. Repeat chest x-ray done this afternoon shows slightly increased moderate left pleural effusion that is stable and small right pleural effusion with associated bibasilar airspace disease and minimal interstitial edema. Patient will be given a couple doses of IV Lasix. Patient denies any chest pain or palpitations at this time. Patient is afebrile. Patient denies any nausea or vomiting and has been tolerating diet. Patient denies any difficulty in swallowing status post EGD yesterday. Patient states that they normally live in [place] and her up here visiting their daughter and would like to return to [place] as he has providers down there as well. Patient stated slightly unsteady and uses a walker. Patient is refusing any form of rehab at this time. 02/27/2019 Patient is feeling better today AND saturations of improved patient may not require any oxygen any more. Although patient is does have some pedal edema has still minimally elevated JVD lung exam improved I believe one more day of IV Lasix will benefit him his. He function continued to improve with IV Lasix. 02/28/2019 patient is feeling much better today still has some pedal edema. Pulmonary BMP available from today serum creatinine probably improved. Patient will be discharged today. PHYSICAL EXAMINATION: GENERAL: The patient is alert and oriented x3, not in any acute distress. Well developed, well nourished. HEENT: Pupils are round and equally reacting to light. EOMI. No scleral icterus. No conjunctival pallor. Normocephalic, atraumatic. No pharyngeal erythema. No thyromegaly. CARDIOVASCULAR: S1 and S2 present. No murmurs, rubs, or gallops. does have elevated JVD PULMONARY: Chest is clear to auscultation, no wheezing or crackles. ABDOMEN: Soft, nontender, nondistended, normoactive bowel sounds. No palpable organomegaly. MUSCULOSKELETAL: No joint swelling or deformity. EXTREMITIES: No cyanosis, clubbing, pedal edema improving still has pedal edema NEUROLOGICAL: Gross neurological examination did not reveal any focal deficits. SKIN: No rashes. Assessment and Plan Plan: -shortness of breath acute hypoxic respiratory failure secondary to bilateral pleural effusion congestive heart failure with acute exacerbation patient has diastolic dysfunction. -Esophageal adenocarcinoma patient is status post upper GI endoscopy. -Persistent A. fib presently rate controlled continue with anticoagulation -COPD with acute exacerbation COPD is not an issue now patient is not wheezing at this time Antihypertensive 2 diabetes mellitus Hypertension -Anemia of chronic kidney disease -Chronic kidney disease stage II to 3 -Acute renal failure we'll azotemia from congestive heart failure which is approved with Lasix Patient Condition at Discharge: Serious Plan - Discharge Summary Discharge Rx Participant: Yes New Discharge Prescriptions: New Famotidine [Pepcid] 20 mg PO Q24H 30 Days #30 tab predniSONE 10 mg PO DIRECTED #30 tab Continue Metoprolol Tartrate 25 mg PO BID Paricalcitol 2 mcg PO MO Lactobacillus Acidophilus [Acidophilus] 1 tab PO DAILY Pravastatin Sodium [Pravachol] 20 mg PO HS Iron Polysaccharide Complex [Ferrex 150] 150 mg PO DAILY Cholecalciferol [Vitamin D3] 400 unit PO BID Omeprazole 40 mg PO DAILY Ipratropium-Albuterol Nebulize [Duoneb 0.5 mg-3 mg/3 ml Soln] 3 ml INHALATION RT-QID #120 ampul.neb Budesonide-Formot 160-4.5 Mcg [Symbicort 160-4.5 Mcg Inhaler] 2 puff INHALATION RT-BID #1 puff Changed Furosemide [Lasix] 40 mg PO BID 30 Days #60 mg Discontinued guaiFENesin [Mucinex] 600 mg PO BID Discharge Medication List Metoprolol Tartrate 25 mg PO BID 05/20/14 [History] Paricalcitol 2 mcg PO MO 05/20/14 [History] Iron Polysaccharide Complex [Ferrex 150] 150 mg PO DAILY 07/31/18 [History] Lactobacillus Acidophilus [Acidophilus] 1 tab PO DAILY 07/31/18 [History] Pravastatin Sodium [Pravachol] 20 mg PO HS 07/31/18 [History] Cholecalciferol [Vitamin D3] 400 unit PO BID 12/29/18 [History] Omeprazole 40 mg PO DAILY 12/29/18 [History] Budesonide-Formot 160-4.5 Mcg [Symbicort 160-4.5 Mcg Inhaler] 2 puff INHALATION RT-BID #1 puff 12/31/18 [Rx] Ipratropium-Albuterol Nebulize [Duoneb 0.5 mg-3 mg/3 ml Soln] 3 ml INHALATION RT-QID #120 ampul.neb 12/31/18 [Rx] Famotidine [Pepcid] 20 mg PO Q24H 30 Days #30 tab 02/26/19 [Rx] Furosemide [Lasix] 40 mg PO BID 30 Days #60 mg 02/26/19 [Rx] predniSONE 10 mg PO DIRECTED #30 tab 02/26/19 [Rx] Follow up Appointment(s)/Referral(s): Alex Wright MD [Primary Care Provider] - 1-2 days [facility], [NON-STAFF] - 1-2 Days Ambulatory/Diagnostic Orders: Basic Metabolic Panel [LAB.AMB] Time Frame: 3 Days, Location: None Selected Complete Blood Count w/diff [LAB.AMB] Time Frame: 2 Days, Location: None Selected Patient Instructions/Handouts: Famotidine (By mouth), Prednisone (By mouth), Viral Pneumonia (DC) Activity/Diet/Wound Care/Special Instructions: Activity Limited until follow-up Follow-up with primary care provider upon discharge Repeat labs in 2-3 days Continue current diet Follow-up with oncology for biopsy results Discharge Disposition: HOME WITH HOME HEALTH SERVICES
[2019-02-28 14:24] LABS: Calcium 9.9 mg/dL (8.4-10.2); Potassium 4.6 mmol/L (3.5-5.1)
== END 2019-02-28 15:30 | disposition home health service (06) | DRG 291 ==
LOC: EC 20:25 → 2SICU 22:41 → 3NMEDONC 02-22 11:43
PROVIDERS: ADMIT Family Medicine; ATTEND Family Medicine
PROC: 0DB78ZX Excision of Stomach, Pylorus, Via Natural or Artificial Opening Endoscopic, Diagnostic (ICD-10-PCS; 2019-02-25)
PROC: 0DB38ZX Excision of Lower Esophagus, Via Natural or Artificial Opening Endoscopic, Diagnostic (ICD-10-PCS; principal; 2019-02-25 07:30)
DX: I13.0 Hypertensive heart and chronic kidney disease with heart failure and stage 1 through stage 4 chronic kidney disease, or unspecified chronic kidney disease (principal); I50.33 Acute on chronic diastolic (congestive) heart failure; J96.01 Acute respiratory failure with hypoxia; K29.51 Unspecified chronic gastritis with bleeding; C15.5 Malignant neoplasm of lower third of esophagus; J44.1 Chronic obstructive pulmonary disease with (acute) exacerbation; K22.10 Ulcer of esophagus without bleeding; N17.9 Acute kidney failure, unspecified; E87.2 Acidosis; I48.19 Other persistent atrial fibrillation; I48.20 Chronic atrial fibrillation, unspecified; D63.1 Anemia in chronic kidney disease; D50.0 Iron deficiency anemia secondary to blood loss (chronic); E11.22 Type 2 diabetes mellitus with diabetic chronic kidney disease; E78.5 Hyperlipidemia, unspecified; I25.10 Atherosclerotic heart disease of native coronary artery without angina pectoris; I27.20 Pulmonary hypertension, unspecified; K44.9 Diaphragmatic hernia without obstruction or gangrene; K80.20 Calculus of gallbladder without cholecystitis without obstruction; N18.3 Chronic kidney disease, stage 3 (moderate); N28.1 Cyst of kidney, acquired; Z79.01 Long term (current) use of anticoagulants; Z79.51 Long term (current) use of inhaled steroids; Z79.899 Other long term (current) drug therapy; Z80.6 Family history of leukemia; Z82.49 Family history of ischemic heart disease and other diseases of the circulatory system; Z87.01 Personal history of pneumonia (recurrent); Z87.891 Personal history of nicotine dependence; Z95.1 Presence of aortocoronary bypass graft; Z96.643 Presence of artificial hip joint, bilateral; Z96.652 Presence of left artificial knee joint; Z80.9 Family history of malignant neoplasm, unspecified
CPT/HCPCS: 36415; 43239; 71045; 71046; 71250; 74150; 80048; 80053; 81003; 82272; 82550; 83605; 83735; 83880; 84100; 84145; 84484; 85025; 85610; 85730; 87040; 87070; 87205; 87502; 88305; 93005; 93306; 94640; 94760

== ENCOUNTER → 2019-03-02 | Outpatient (CLI) | payer MEDICARE ==
[2019-03-02 12:35] LABS: Anisocytosis Slight; Basophils % (A) 0 %; Eosinophils # (A) 0.1 k/uL (0-0.7); Eosinophils % (A) 2 %; HCT 31.3 % (39.0-53.0); HGB 9.4 gm/dL (13.0-17.5); Hypochromasia Marked; Lymphocytes # (A) 0.4 k/uL (1.0-4.8); Lymphocytes % (A) 12 %; MCH 31.3 pg (25.0-35.0); MCHC 30.1 g/dL (31.0-37.0); MCV 103.9 fL (80.0-100.0); Macrocytosis Moderate; Mean Platelet Volume 6.6; Monocytes # (A) 0.1 k/uL (0-1.0); Monocytes % (A) 5 %; Neutrophils # (A) 2.4 k/uL (1.3-7.7); Neutrophils % (A) 80 %; Platelet Count 104 k/uL (150-450); RBC 3.01 m/uL (4.30-5.90); RDW 16.6 % (11.5-15.5)
[2019-03-02 19:43] LABS: African American GFR (CKD) 41.7 (60.0-200.0); Anion Gap 11.3 mmol/L (4.00-12.00); BUN/Creat Ratio 24.12 Ratio (12.00-20.00); Calcium 9.3 mg/dL (8.7-10.3); Carbon Dioxide 29.7 mmol/L (21.6-31.8); Potassium 3.4 mmol/L (3.5-5.5)
== END | disposition home or self-care (01) ==
LOC: LABWHC1 11:14
PROVIDERS: ATTEND Registered Nurse
DX: D64.9 Anemia, unspecified (principal); R79.89 Other specified abnormal findings of blood chemistry
CPT/HCPCS: 36415; 80048; 85025

== ENCOUNTER → 2019-03-05 | Day surgery (SDC) | payer MEDICARE ==
[2019-03-05 10:51] VITALS: RESP 18
--- NOTE | 2019-03-05 10:52 | US ---
EXAMINATION TYPE: US chest DATE OF EXAM: 03/05/2019 COMPARISON: Chest x-ray 3 days ago CLINICAL HISTORY: PLEURAL EFFUSION J91.8. TECHNIQUE: Targeted ultrasound of the posterior lower left hemithorax EXAM MEASUREMENTS: Left Pleural Effusion pocket size: 9.2 cm Left skin surface to fluid distance: 2.3 cm Left side marked for possible thoracentesis outside the dept. Pulmonologists are able to review the images in the patient?s EMR. IMPRESSIONS: Confirmation of recurrent moderate size left pleural effusion on 3 images saved which co rrelates with chest x-ray.
[2019-03-05 11:00] VITALS: TEMP 98.2
--- NOTE | 2019-03-05 12:38 | PCN ---
PROCEDURE NOTE PROCEDURE: Left-sided thoracentesis. PREOPERATIVE DIAGNOSIS: Large left pleural effusion. POSTOPERATIVE DIAGNOSIS: Large left pleural effusion. ANESTHESIA USED: 1% lidocaine. PROCEDURE DESCRIPTION: The patient was placed in a sitting upright position, the area of the fluid was earlier localized by ultrasound and the area below the left scapula was prepared in a sterile fashion and drapes were applied. The patient was placed in a sitting upright position, and the area of the 8th intercostal space and tip of the scapula was locally anesthetized. Then a 26-gauge needle was inserted at the same site, advanced into the pleural space. The fluid was localized again with the needle. Then a small tiny incision was made, and a standard thoracentesis catheter and needle were used. The needle was inserted at the same site, advanced into the pleural space and as soon as the fluid was obtained, the catheter was advanced over the needle into the pleural space and the needle was pulled out of the pleural space. Freely flowing fluid was removed, roughly 1100 mL of slightly yellow fluid was removed from the left pleural space. The procedure was well tolerated, the fluid was sent for different diagnostic studies. Chest x-ray was ordered postoperatively and it is pending at the time of this dictation. MMODL / IJN: [id number] /
--- NOTE | 2019-03-05 12:43 | XR ---
EXAMINATION TYPE: XR chest 1V portable DATE OF EXAM: 03/05/2019 COMPARISON: Prior chest x-ray dated 02/26/2019 HISTORY: Status post left thoracentesis TECHNIQUE: Single frontal view of the chest is obtained. FINDINGS: There is some interval improved aeration of the left lung. No evident pneumothorax. No oth er significant interval change. IMPRESSION: No evident complication status post left thoracentesis.
[2019-03-05 12:55] VITALS: BP 138/63; PULSE 68
[2019-03-05 14:12] LABS: Appearance,BF Clear; Color,BF Yellow; Nucleated Cells, Body Fluid 35 /uL; RBC, Body Fluid 745 /uL
[2019-03-05 14:15] LABS: Mononuclear WBC,Body Fluid 99 %; Polynuclear WBC,Body Fluid 1 %; Total Cells Counted,Body Fluid 100
[2019-03-05 20:46] LABS: Glucose, BF Source Pleural Fluid; Glucose, Body Fluid 173 mg/dL; Total Protein, Body Fluid 1685 mg/dL
== END ==
LOC: PROCWHC3 10:03
PROVIDERS: ATTEND Internal Medicine
DX: J90 Pleural effusion, not elsewhere classified (principal); I48.91 Unspecified atrial fibrillation; E78.2 Mixed hyperlipidemia; J44.9 Chronic obstructive pulmonary disease, unspecified; J96.11 Chronic respiratory failure with hypoxia; I25.10 Atherosclerotic heart disease of native coronary artery without angina pectoris; D64.9 Anemia, unspecified; I11.0 Hypertensive heart disease with heart failure; I50.20 Unspecified systolic (congestive) heart failure; Z85.01 Personal history of malignant neoplasm of esophagus; Z92.3 Personal history of irradiation; Z79.899 Other long term (current) drug therapy; Z79.51 Long term (current) use of inhaled steroids; Z87.01 Personal history of pneumonia (recurrent); Z87.891 Personal history of nicotine dependence; Z98.890 Other specified postprocedural states; Z80.6 Family history of leukemia; Z80.9 Family history of malignant neoplasm, unspecified; Z99.81 Dependence on supplemental oxygen; Z79.52 Long term (current) use of systemic steroids; Z95.1 Presence of aortocoronary bypass graft
CPT/HCPCS: 32554; 71045; 76604; 82945; 83615; 84157; 87070; 87075; 87116; 87205; 87206; 88108; 88305; 88341; 88342; 89050

== ENCOUNTER → 2019-07-27 | Outpatient (CLI) | payer MEDICARE | END | disposition home or self-care (01) | LOC: PEDOP 15:57 | PROVIDERS: ATTEND Nurse Practitioner Family | DX: R50.9 Fever, unspecified (principal) | CPT/HCPCS: 87502; G0463; 99212 ==